=== PATIENT | female | born 1945 | race Caucasian/White ===

== ENCOUNTER 2018-12-03 20:53 | Emergency (ER) | payer OTHER, MEDICARE ==
[~2018-12-03] VITALS: Ht 154.9 cm; Wt 72.6 kg
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
[2018-12-03] MEDS ORDERED: TETANUS,DIPTH,PERTUSS P/F (BOOSTRIX) 0.5 ML VIAL IM ONE (22:15)
[2018-12-03] MEDS ORDERED: NAPR-1071 PO (22:21)
[2018-12-03 22:35] VITALS: BP 140/64
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
== END 2018-12-03 22:34 | disposition home or self-care (01) ==
LOC: EDUNIT# 20:53 → ER FS 20:55
DX: S80.11XA Contusion of right lower leg, initial encounter (principal); S00.83XA Contusion of other part of head, initial encounter; S60.012A Contusion of left thumb without damage to nail, initial encounter; S00.212A Abrasion of left eyelid and periocular area, initial encounter; R40.2142 Coma scale, eyes open, spontaneous, at arrival to emergency department; R40.2252 Coma scale, best verbal response, oriented, at arrival to emergency department; R40.2362 Coma scale, best motor response, obeys commands, at arrival to emergency department; Z88.0 Allergy status to penicillin; Z88.8 Allergy status to other drugs, medicaments and biological substances; V49.40XA Driver injured in collision with unspecified motor vehicles in traffic accident, initial encounter
CPT/HCPCS: 73562; 73590; 90715

== ENCOUNTER → 2019-03-18 | Outpatient (CLI) | payer MEDICARE ==
[~2019-03-18] MED LIST: NAPR-1071 PO
[2019-03-18 12:11] LABS: ALANINE AMINOTRANSFERASE 21 U/L (0-55); ALBUMIN 4.6 GM/DL (3.2-4.5); ALKALINE PHOSPHATASE 90 U/L (40-136); BILIRUBIN,TOTAL 0.3 MG/DL (0.1-1.0); BUN/CREATININE RATIO 20; CALCIUM 9.7 MG/DL (8.5-10.1); CARBON DIOXIDE 31 MMOL/L (21-32); CHLORIDE 105 MMOL/L (98-107); CREATININE SERUM 0.79 MG/DL (0.60-1.30); GFR ESTIMATED > 60; GLUCOSE 112 MG/DL (70-105); POTASSIUM 3.7 MMOL/L (3.6-5.0); SODIUM 144 MMOL/L (135-145); TOTAL PROTEIN 7.2 GM/DL (6.4-8.2)
[2019-03-18 12:31] LABS: FREE T4 (FREE THYROXINE) 0.77 NG/DL (0.70-1.48)
== END ==
LOC: LAB 11:33
PROVIDERS: ATTEND Pediatrics
DX: R41.3 Other amnesia (principal)
CPT/HCPCS: 36415; 80053; 82607; 84439; 84443

== ENCOUNTER 2019-10-06 10:23 | Emergency (ER) | payer MEDICARE ==
[~2019-10-06] VITALS: Ht 152.4 cm; Wt 61.3 kg
[2019-10-06 10:33] VITALS: BP 155/72
--- NOTE | 2019-10-06 10:39 | ED Lower Extremity ---
General Chief Complaint: Lower Extremity Stated Complaint: RT SWOLLEN KNEE Source: patient Exam Limitations: no limitations History of Present Illness Date Seen by Provider: Oct 06, 2019 Time Seen by Provider: 10:35 Initial Comments 74-year-old female presents with pain and swelling to the right lower leg. Patient reports about 30 minutes ago she was working outside pulling weeds when she stepped backwards fell. She has pain in the distal aspect of her right lower leg with some swelling. She is able to bear weight but with significant amount of pain. She is able to move her ankle. She denies any other injury. She does have some mild bruising to the area. Allergies and Home Medications Allergies Coded Allergies: Penicillins (Verified Allergy, Intermediate, rash, 12/03/18) oseltamivir (Verified Allergy, Intermediate, Vomiting, 12/03/18) Home Medications Naproxen 500 Mg Tablet, 500 MG PO BID PRN for PAIN-MODERATE TO SEVERE Prescribed by: ALEJANDRO REHMAN on 12/03/181 Patient Home Medication List Home Medication List Reviewed: Yes Review of Systems Constitutional: No chills, No fever EENTM: no symptoms reported Respiratory: no symptoms reported Cardiovascular: no symptoms reported Gastrointestinal: no symptoms reported Genitourinary: no symptoms reported Musculoskeletal: see HPI Skin: see HPI Past Zocnnvg-Dzahcg-Lnwuig Hx Past Med/Social Hx: Reviewed Nursing Past Med/Soc Hx Patient Social History 2nd Hand Smoke Exposure: No Recent Foreign Travel: No Contact w/Someone Who Travel: No Recent Hopitalizations: No Past Medical History Surgeries: Yes Orthopedic Respiratory: No Cardiac: No Neurological: Yes Seizure Disorder Genitourinary: No Gastrointestinal: No Musculoskeletal: No Endocrine: No HEENT: No Cancer: No Psychosocial: No Integumentary: No Blood Disorders: No Physical Exam Vital Signs Vital Signs - First Documented 10/06/19 10:33 Temp 36.5 Pulse 84 Resp 16 B/P (MAP) 155/72 (99) Pulse Ox 98 O2 Delivery Room Air Capillary Refill : Height, Weight, BMI Height: 5'1.00" Weight: 160lbs. oz. [id number]; 27.85 BMI Method:Stated General Appearance: WD/WN, no apparent distress Neck: supple Cardiovascular: normal peripheral pulses, regular rate, rhythm Respiratory: lungs clear, normal breath sounds Gastrointestinal: non tender, soft Hips: bilateral hip non-tender Legs: right leg ecchymosis, right leg soft tissue tenderness, right leg swelling Knees: bilateral knee non-tender Ankles: bilateral ankle normal range of motion Feet: bilateral foot non-tender Neurologic/Tendon: normal sensation Neurologic/Psychiatric: alert, normal mood/affect, oriented x 3 Skin: ecchymosis Progress/Results/Core Measures Results/Orders My Orders Orders - ZACKERY GREENWOOD DO Tibia Fibula 2 View Right (10/06/19 10:39) Vital Signs/I&O 10/06/19 10:33 Temp 36.5 Pulse 84 Resp 16 B/P (MAP) 155/72 (99) Pulse Ox 98 O2 Delivery Room Air Diagnostic Imaging Diagonstic Imaging: Xray Plain Films/CT/US/NM/MRI: leg Comments [facility], [place] NAME: RUFINO BILLY [employer] REC#: [id number] PT STATUS: REG ER : 1945 PHYSICIAN: ZACKERY GREENWOOD DO ADMIT DATE: 10/06/19/ER FS Draft Date of Exam:10/06/19 TIBIA FIBULA 2 VIEW RIGHT INDICATION: Pain in the right lower extremity, fall. Time of exam: 10:46 AM Two views of the right tibia and fibula were obtained. There are changes of right total knee arthroplasty. Prosthetic elements are in good position. Alignment at the knee and ankle appears normal. The tibia and fibula appear to be intact. No fractures are identified. Soft tissues are unremarkable. IMPRESSION: No acute bony abnormality is detected. Dictated on workstation # [id number] Dict: 10/06/19 1051 Trans: 10/06/19 1056 [facility] [id number] Interpreted by: TRACI HALL MD Reviewed: Reviewed by Me, Reviewed/Discussed Departure Impression Primary Impression: Contusion of right lower leg, initial encounter Disposition: 01 HOME, SELF-CARE Condition: Stable Departure-Patient Inst. Referrals: RAMIN KWOK MD (PCP/Family) Primary Care Physician Patient Instructions: Contusion (DC), Taking Care of Bruises Add. Discharge Instructions: 4% topical lidocaine with menthol cream or gel to affected area as directed on package discharge instructions reviewed with patient and/or family. Voiced understanding. ZACKERY GREENWOOD DO Oct 06, 2019 10:39
--- NOTE | 2019-10-06 10:56 | Diagnostic Imaging Report ---
INDICATION: Pain in the right lower extremity, fall. Time of exam: 10:46 AM Two views of the right tibia and fibula were obtained. There are changes of right total knee arthroplasty. Prosthetic elements are in good position. Alignment at the knee and ankle appears normal. The tibia and fibula appear to be intact. No fractures are identified. Soft tissues are unremarkable. IMPRESSION: No acute bony abnormality is detected. Dictated by: Dictated on workstation # [id number]
== END 2019-10-06 11:12 | disposition home or self-care (01) ==
LOC: EDUNIT# 10:23 → ER FS 10:25
DX: S80.11XA Contusion of right lower leg, initial encounter (principal); Z88.0 Allergy status to penicillin; Z88.3 Allergy status to other anti-infective agents; W18.39XA Other fall on same level, initial encounter
CPT/HCPCS: 73590

== ENCOUNTER 2020-05-18 08:49 | Emergency (ER) | payer MEDICARE ==
[~2020-05-18] VITALS: Ht 152.4 cm; Wt 56.0 kg
--- NOTE | 2020-05-18 09:26 | ED General ---
General Chief Complaint: Altered Mental Status Stated Complaint: DIZZINESS,DISORIENTATION Source of Information: Patient History of Present Illness Date Seen by Provider: May 18, 2020 Time Seen by Provider: 08:52 Initial Comments 75-year-old female presenting with her sister to the emergency department having complaints of intermittent dizziness and confusion. Last known normal is unsure. Patient has a history of seizures but cannot remember when she last had a seizure. She takes phenytoin for her seizures. She also has a history of hypothyroid and high cholesterol. She follows with Dr. Kwok out of [place]. She denies having any pain. She states that she has no headache, change in her vision, nausea, vomiting, pain with urination, change in her bowels, cough or shortness of breath. She has had no fever or chills. She is oriented to her self and location but is unsure of date and age. Allergies and Home Medications Allergies Coded Allergies: Penicillins (Verified Allergy, Intermediate, rash, 12/03/18) oseltamivir (Verified Allergy, Intermediate, Vomiting, 12/03/18) Home Medications Naproxen 500 Mg Tablet, 500 MG PO BID PRN for PAIN-MODERATE TO SEVERE Prescribed by: ALEJANDRO REHMAN on 12/03/18 2221 Patient Home Medication List Home Medication List Reviewed: Yes Review of Systems Review of Systems Constitutional: No chills; dizziness (intermittent); No fever EENTM: no symptoms reported Respiratory: no symptoms reported Cardiovascular: no symptoms reported Gastrointestinal: no symptoms reported Genitourinary: no symptoms reported Musculoskeletal: no symptoms reported Skin: no symptoms reported Psychiatric/Neurological: Denies Headache; Other (confusion) Hematologic/Lymphatic: No Symptoms Reported Past [id number]-[id number] Hx Past Med/Social Hx: Reviewed Nursing Past Med/Soc Hx Patient Social History 2nd Hand Smoke Exposure: No Recent Hopitalizations: No Seasonal Allergies Seasonal Allergies: No Past Medical History Surgeries: Yes Orthopedic Respiratory: No Cardiac: No Neurological: Yes Seizure Disorder Genitourinary: No Gastrointestinal: No Musculoskeletal: No Endocrine: No HEENT: No Cancer: No Psychosocial: No Integumentary: No Blood Disorders: No Physical Exam Vital Signs Vital Signs - First Documented 05/18/20 08:55 Temp 36.8 Pulse 92 Resp 16 B/P (MAP) 155/69 (97) Pulse Ox 99 O2 Delivery Room Air Capillary Refill : Height, Weight, BMI Height: 5'1.00" Weight: 160lbs. oz. 72.196616my; 26.00 BMI Method:Stated General Appearance: No Apparent Distress, WD/WN HEENT: PERRL/EOMI, Normal ENT Inspection, Pharynx Normal Neck: Full Range of Motion, Normal Inspection, Non Tender, Supple; No Carotid Bruit Respiratory: Chest Non Tender, Lungs Clear, Normal Breath Sounds, No Accessory Muscle Use, No Respiratory Distress Cardiovascular: Regular Rate, Rhythm, No Murmur, Normal Peripheral Pulses Gastrointestinal: Normal Bowel Sounds, No Pulsatile Mass, Non Tender, Soft Rectal: Deferred Extremity: Normal Capillary Refill, Normal Range of Motion, Non Tender, No Calf Tenderness, No Pedal Edema Neurologic/Psychiatric: Alert; No Oriented x3 (oriented to self and place. not oriented to age, month, year, day); No Motor/Sensory Deficits, Normal Mood/Affect, fund manager II-XII Norm as Tested; No Aphasia, No Facial Droop, No Motor Weakness, No Sensory Deficit Skin: Normal Color, Warm/Dry Progress/Results/Core Measures Suspected Sepsis SIRS Temperature: Pulse: Respiratory Rate: Laboratory Tests 05/18/20 09:25: White Blood Count 5.1 Blood Pressure / Mean: Laboratory Tests 05/18/20 09:25: Creatinine 0.64, Platelet Count 211, Total Bilirubin 0.3 Results/Orders Lab Results Laboratory Tests Test 05/18/20 09:20 05/18/20 09:25 Range/Units Urine Color YELLOW Urine Clarity CLEAR Urine pH 6.5 5-9 Urine Specific Addison 1.010 L 1.016-1.022 Urine Protein NEGATIVE NEGATIVE Urine Glucose (UA) NEGATIVE NEGATIVE Urine Ketones NEGATIVE NEGATIVE Urine Nitrite NEGATIVE NEGATIVE Urine Bilirubin NEGATIVE NEGATIVE Urine Urobilinogen 0.2 < = 1.0 MG/DL Urine Leukocyte Esterase NEGATIVE NEGATIVE Urine RBC (Auto) 2+ H NEGATIVE Urine RBC 5-10 H /HPF Urine WBC NONE /HPF Urine Squamous Epithelial Cells RARE /HPF Urine Crystals NONE /LPF Urine Bacteria NEGATIVE /HPF Urine Casts NONE /LPF Urine Mucus NEGATIVE /LPF Urine Culture Indicated NO Urine Opiates Screen NEGATIVE NEGATIVE Urine Oxycodone Screen NEGATIVE NEGATIVE Urine Methadone Screen NEGATIVE NEGATIVE Urine Propoxyphene Screen NEGATIVE NEGATIVE Urine Barbiturates Screen POSITIVE H NEGATIVE Ur Tricyclic Antidepressants Screen NEGATIVE NEGATIVE Urine Phencyclidine Screen NEGATIVE NEGATIVE Urine Amphetamines Screen NEGATIVE NEGATIVE Urine Methamphetamines Screen NEGATIVE NEGATIVE Urine Benzodiazepines Screen NEGATIVE NEGATIVE Urine Cocaine Screen NEGATIVE NEGATIVE Urine Cannabinoids Screen NEGATIVE NEGATIVE White Blood Count 5.1 4.3-11.0 10^3/uL Red Blood Count 4.46 4.35-5.85 10^6/uL Hemoglobin 13.7 11.5-16.0 G/DL Hematocrit 41 35-52 % Mean Corpuscular Volume 93 80-99 FL Mean Corpuscular Hemoglobin 31 25-34 PG Mean Corpuscular Hemoglobin Concent 33 32-36 G/DL Red Cell Distribution Width 12.8 10.0-14.5 % Platelet Count 211 130-400 10^3/uL Mean Platelet Volume 9.3 7.4-10.4 FL Immature Granulocyte % (Auto) 0 % Neutrophils (%) (Auto) 66 42-75 % Lymphocytes (%) (Auto) 25 12-44 % Monocytes (%) (Auto) 8 0-12 % Eosinophils (%) (Auto) 0 0-10 % Basophils (%) (Auto) 0 0-10 % Neutrophils # (Auto) 3.4 1.8-7.8 X 10^3 Lymphocytes # (Auto) 1.3 1.0-4.0 X 10^3 Monocytes # (Auto) 0.4 0.0-1.0 X 10^3 Eosinophils # (Auto) 0.0 0.0-0.3 10^3/uL Basophils # (Auto) 0.0 0.0-0.1 10^3/uL Immature Granulocyte # (Auto) 0.0 0.0-0.1 10^3/uL Sodium Level 141 135-145 MMOL/L Potassium Level 3.7 3.6-5.0 MMOL/L Chloride Level 102 98-107 MMOL/L Carbon Dioxide Level 31 21-32 MMOL/L Anion Gap 8 5-14 MMOL/L Blood Urea Nitrogen 17 7-18 MG/DL Creatinine 0.64 0.60-1.30 MG/DL Estimat Glomerular Filtration Rate > 60 BUN/Creatinine Ratio 27 Glucose Level 154 H 70-105 MG/DL Calcium Level 9.7 8.5-10.1 MG/DL Corrected Calcium 8.5-10.1 MG/DL Total Bilirubin 0.3 0.1-1.0 MG/DL Aspartate Amino Transf (AST/SGOT) 21 5-34 U/L Alanine Aminotransferase (ALT/SGPT) 18 0-55 U/L Alkaline Phosphatase 102 40-136 U/L Troponin I < 0.30 <0.30 NG/ML Total Protein 7.2 6.4-8.2 GM/DL Albumin 4.7 H 3.2-4.5 GM/DL Salicylates Level < 0.3 L 5.0-20.0 MG/DL Acetaminophen Level < 10 L 10-30 UG/ML Serum Alcohol < 10 <10 MG/DL My Orders Orders - ALEJANDRO REHMAN MD Ua Culture If Indicated (05/18/20 09:16) Cbc With Automated Diff (05/18/20 09:16) Comprehensive Metabolic Panel (05/18/20 09:16) Alcohol (05/18/20 09:16) Drug Screen Stat (Urine) (05/18/20 09:16) Acetaminophen (05/18/20 09:16) Salicylate (05/18/20 09:16) Ekg Tracing (05/18/20 09:16) Ed Iv/Invasive Line Start (05/18/20 09:16) Monitor-Rhythm Ecg Trace Only (05/18/20 09:16) Thyroid Stimulating Hormone (05/18/20 09:16) Troponin I Fs (05/18/20 09:16) Ct Head Wo (05/18/20 09:16) Vital Signs/I&O 05/18/20 08:55 Temp 36.8 Pulse 92 Resp 16 B/P (MAP) 155/69 (97) Pulse Ox 99 O2 Delivery Room Air Capillary Refill : Progress Note #1: Progress Note obtain basic labs, ECG, Cardiac enzymes, UA to check for UTI, CT head to evaluate for stroke, mass, acute intracranial process. Differential diagnosis would include post-ictal from seizure activity, stroke, UTI, Infection, CAD with DC, dementia Progress Note #2: Time: 10:[address] head no acute process, ECG without acute ischemia, UA clear of infection. drug screen shows barbituates but no other drugs of abuse. Chemistry pending otherwise. Progress Note #3: Time: 11:26 Progress Note Chemistry stable and Alcohol, Acetaminophen and salicylate levels all negative. TSH pending but it is sent to [facility] to run and is not an emergent test. Discussed with Dr. Kwok since he is the PCP for the patient. He is very familiar with the patient and he reports seeing her last week and she had labs showing her TSH was ok and did not need adjustment. He had seen improvement in her symptoms and memory when she was taking vitamin B12 shots. She had a very low level of vitamin B12 and when he had started the injections for her she seemed to be improving. However she has not been taking those of late. He stated that he appreciated the call and update on the patient. He was very familiar with her being confused and having memory issues and recommended having her follow-up to get the B12 shots started again. Any additional treatments could be done after follow-up with him. As he already is familiar with her and knows her history very well he would be one of the best resources for the patient and family. Advised patient to not be driving herself due to her memory issues. Reviewed B12 concerns with the patient. ECG Initial ECG Impression Date: May 18, 2020 Initial ECG Impression Time: 10:03 Initial ECG Rate: 73 Initial ECG Rhythm: Normal Sinus Initial ECG Comparisson: No Previous ECG Available Comment Normal sinus rhythm with a heart rate of 73 bpm. MN interval 147 ms. QT interval 386 ms with a QTc interval [address] elevation. No prior tracing available for comparison. Diagnostic Imaging Diagonstic Imaging: CT Plain Films/CT/US/NM/MRI: head Comments [facility], [place] NAME: RUFINO BILLY [facility] REC#: [id number] PT STATUS: REG ER : 1945 PHYSICIAN: ALEJANDRO REHMAN MD ADMIT DATE: 05/18/20/ER FS Signed Date of Exam:05/18/20 CT HEAD WO PROCEDURE: CT head without contrast. TECHNIQUE: Multiple contiguous axial images were obtained through the brain without the use of intravenous contrast. Auto Exposure Controls were utilized during the CT exam to meet ALARA standards for radiation dose reduction. INDICATION: Confusion and dizziness. FINDINGS: There is prominence of the ventricles and sulci. There is no hydrocephalus or cerebral edema. There is no midline shift or mass-effect. There is no intracranial mass, hemorrhage, or extra-axial fluid collection. There is some diffuse decreased attenuation of the periventricular white matter which is nonspecific. The visualized paranasal sinuses and mastoid air cells are clear. There are no regional areas of decreased attenuation appreciated to suggest an acute CVA. IMPRESSION: 1. No acute intracranial process. 2. Age-appropriate atrophy. 3. Decreased attenuation of the periventricular white matter which is nonspecific, however, likely reflects senescent change and/or chronic small vessel ischemic disease. If there is high clinical concern of an acute CVA further evaluation with MRI should be considered. Dictated by: Dictated on workstation # [id number] Dict: 05/18/20939 Trans: 05/18/20943 [facility] [id number] Interpreted by: BRUNO CASTELAN MD Electronically signed by: BRUNO CASTELAN MD 05/18/20943 Departure Impression Primary Impression: Dementia Qualified Codes: F03.90 - Unspecified dementia without behavioral disturbance Additional Impression: Confusion and disorientation Disposition: 01 HOME, SELF-CARE Condition: Stable Departure-Patient Inst. Decision time for Depature: 11:29 Referrals: RAMIN KWOK MD (PCP/Family) Primary Care Physician Patient Instructions: Dementia (Including Alzheimer Disease), Dementia (DC), Driving Restrictions Add. Discharge Instructions: At this point you should not be driving yourself due to concerns for your memory and dementia. Follow up with Dr. Kwok regarding your memory and issues. He had seen improvement with your memory and symptoms when you were getting Vitamin B12 shots and he encourages you to see him and get those restarted. All discharge instructions reviewed with patient and/or family. Voiced understanding. ALEJANDRO REHMAN MD May 18, 2020 09:26
--- NOTE | 2020-05-18 09:42 | Diagnostic Imaging Report ---
PROCEDURE: CT head without contrast. TECHNIQUE: Multiple contiguous axial images were obtained through the brain without the use of intravenous contrast. Auto Exposure Controls were utilized during the CT exam to meet ALARA standards for radiation dose reduction. INDICATION: Confusion and dizziness. FINDINGS: There is prominence of the ventricles and sulci. There is no hydrocephalus or cerebral edema. There is no midline shift or mass-effect. There is no intracranial mass, hemorrhage, or extra-axial fluid collection. There is some diffuse decreased attenuation of the periventricular white matter which is nonspecific. The visualized paranasal sinuses and mastoid air cells are clear. There are no regional areas of decreased attenuation appreciated to suggest an acute CVA. IMPRESSION: 1. No acute intracranial process. 2. Age-appropriate atrophy. 3. Decreased attenuation of the periventricular white matter which is nonspecific, however, likely reflects senescent change and/or chronic small vessel ischemic disease. If there is high clinical concern of an acute CVA further evaluation with MRI should be considered. Dictated by: Dictated on workstation # [id number]
[2020-05-18 09:47] LABS: AMPHETAMINE SCREEN, URINE NEGATIVE (NEGATIVE); BARBITURATE SCREEN URINE POSITIVE (NEGATIVE); BENZODIAZEPINES SCREEN URINE NEGATIVE (NEGATIVE); CANNABINOID SCREEN, URINE NEGATIVE (NEGATIVE); CLARITY,URINE CLEAR; COCAINE SCREEN URINE NEGATIVE (NEGATIVE); COLOR,URINE YELLOW; GLUCOSE, URINE (UA) NEGATIVE (NEGATIVE); METHADONE STAT NEGATIVE (NEGATIVE); METHAMPHETAMINE SCREEN URINE S NEGATIVE (NEGATIVE); OPIATE SCREEN URINE NEGATIVE (NEGATIVE); OXYCODONE STAT NEGATIVE (NEGATIVE); PH,URINE 6.5 (5-9); PROPOXYPHENE STAT NEGATIVE (NEGATIVE); PROTEIN,URINE NEGATIVE (NEGATIVE); TRICYCLIC ANTIDEPRESSANTS SCRE NEGATIVE (NEGATIVE)
[2020-05-18 09:48] LABS: BACTERIA,URINE NEGATIVE /HPF; BILIRUBIN,URINE NEGATIVE (NEGATIVE); KETONES,URINE NEGATIVE (NEGATIVE); LEUKOCYTE ESTERASE ,URINE NEGATIVE (NEGATIVE); NITRITE,URINE NEGATIVE (NEGATIVE); SQUAMOUS EPITHELIAL CELL,UR RARE /HPF
[2020-05-18 09:49] LABS: HEMATOCRIT 41 % (35-52); HEMOGLOBIN 13.7 G/DL (11.5-16.0); MEAN CORPUSCULAR HEMOGLOBIN 31 PG (25-34); MEAN CORPUSCULAR VOLUME 93 FL (80-99); WHITE BLOOD COUNT 5.1 10^3/uL (4.3-11.0)
[2020-05-18 09:50] LABS: BASOPHILS % (AUTO) 0 % (0-10); EOSINOPHILS % (AUTO) 0 % (0-10); LYMPHOCYTES # (AUTO) 1.3 X 10^3 (1.0-4.0); LYMPHOCYTES % (AUTO) 25 % (12-44); MEAN CORPUSCULAR HGB CONC 33 G/DL (32-36); MEAN PLATELET VOLUME 9.3 FL (7.4-10.4); MONOCYTES # (AUTO) 0.4 X 10^3 (0.0-1.0); MONOCYTES % (AUTO) 8 % (0-12); NEUTROPHILS # (AUTO) 3.4 X 10^3 (1.8-7.8); NEUTROPHILS % (AUTO) 66 % (42-75); PLATELET COUNT 211 10^3/uL (130-400)
[2020-05-18 10:13] LABS: ALKALINE PHOSPHATASE 102 U/L (40-136); BILIRUBIN,TOTAL 0.3 MG/DL (0.1-1.0); BUN/CREATININE RATIO 27; CALCIUM 9.7 MG/DL (8.5-10.1); CARBON DIOXIDE 31 MMOL/L (21-32); CHLORIDE 102 MMOL/L (98-107); CREATININE SERUM 0.64 MG/DL (0.60-1.30); GFR ESTIMATED > 60; GLUCOSE 154 MG/DL (70-105); POTASSIUM 3.7 MMOL/L (3.6-5.0); SODIUM 141 MMOL/L (135-145)
[2020-05-18 10:14] LABS: ACETAMINOPHEN < 10 UG/ML (10-30); ALANINE AMINOTRANSFERASE 18 U/L (0-55); ALBUMIN 4.7 GM/DL (3.2-4.5); SALICYLATE < 0.3 MG/DL (5.0-20.0); TOTAL PROTEIN 7.2 GM/DL (6.4-8.2)
[2020-05-18 11:55] VITALS: BP 151/70
== END 2020-05-18 11:55 | disposition home or self-care (01) ==
LOC: EDUNIT# 08:49 → ER FS 08:51
DX: F03.90 Unspecified dementia, unspecified severity, without behavioral disturbance, psychotic disturbance, mood disturbance, and anxiety (principal); R41.0 Disorientation, unspecified; Z88.0 Allergy status to penicillin; Z88.8 Allergy status to other drugs, medicaments and biological substances
CPT/HCPCS: 36415; 70450; 80053; 80306; 81000; 84443; 84484; 85025; 93005; 99284; G0480 ×3; 80320; 80329

== ENCOUNTER 2020-05-21 07:27 | Emergency (ER) | payer MEDICARE ==
[~2020-05-21] VITALS: Ht 160 cm; Wt 53.9 kg
--- NOTE | 2020-05-21 10:46 | ED General ---
General Chief Complaint: Head/Cervical Problems Stated Complaint: FALL; HEAD INJ Nursing Triage Note: Patient reports she tripped over her cat this morning and fell against a doorframe, hitting the left side of her forehead. Large amount of bruising and swelling present to left forehead. Patient denies loss of consciousness, vision changes, dizziness, etc. Nursing Sepsis Screen: No Definite Risk Source of Information: Patient History of Present Illness Date Seen by Provider: May 21, 2020 Time Seen by Provider: 08:00 Initial Comments Patient is a 75-year-old female who presents with left forehead contusion after accidental fall from standing 1 hour prior to arrival. Patient states she tripped over the cat and struck her forehead off the wall and on the ground. Patient was unable to catch herself prior to falling. She denies loss of consciousness, feeling dizzy or dazed. She denies headache, nausea or neck pain. She is not currently on anticoagulation or antiplatelet therapy. Patient was able to walk denies extremity or hip pain. She is brought in by private vehicle. No other acute symptoms or complaints Timing/Duration: 1 Hour Severity: Mild Modifying Factors: improves with Cold Therapy, improves with Other (icepack) Associated Systoms: Denies Symptoms Allergies and Home Medications Allergies Coded Allergies: Penicillins (Verified Allergy, Intermediate, rash, 12/03/18) oseltamivir (Verified Allergy, Intermediate, Vomiting, 12/03/18) Home Medications Naproxen 500 Mg Tablet, 500 MG PO BID PRN for PAIN-MODERATE TO SEVERE Prescribed by: ALEJANDRO REHMAN on 12/03/18 2221 Patient Home Medication List Home Medication List Reviewed: Yes Review of Systems Review of Systems Constitutional: see HPI EENTM: see HPI Respiratory: see HPI Cardiovascular: see HPI Gastrointestinal: see HPI Genitourinary: see HPI Musculoskeletal: see HPI Skin: see HPI Psychiatric/Neurological: See HPI Hematologic/Lymphatic: See HPI Immunological/Allergic: see HPI All Other Systems Reviewed Negative Unless Noted: Yes Past [id number] Hx Past Med/Social Hx: Reviewed Nursing Past Med/Soc Hx Patient Social History Alcohol Use: Denies Use Smoking Status: Never a Smoker 2nd Hand Smoke Exposure: No Recent Infectious Disease Expo: No Recent Hopitalizations: No Seasonal Allergies Seasonal Allergies: No Past Medical History Surgeries: Yes Orthopedic Respiratory: No Cardiac: Yes High Cholesterol Neurological: Yes Seizure Disorder Genitourinary: No Gastrointestinal: No Musculoskeletal: No Endocrine: No HEENT: No Cancer: No Psychosocial: No Integumentary: No Blood Disorders: No Physical Exam Vital Signs Vital Signs - First Documented 05/21/20 07:43 Temp 36.2 Pulse 84 Resp 18 B/P (MAP) 149/62 (91) Pulse Ox 97 O2 Delivery Room Air Capillary Refill : Less Than 3 Seconds Height, Weight, BMI Height: 5'1.00" Weight: 160lbs. oz. 72.753314xv; 21.00 BMI Method:Stated General Appearance: No Apparent Distress Eyes: Bilateral Eye Normal Inspection, Bilateral Eye PERRL, Bilateral Eye EOMI HEENT: PERRL/EOMI, Pharynx Normal, Moist Mucous Membranes, Other (Left forehead contusion without abrasion or laceration) Neck: Full Range of Motion, Non Tender, Supple Respiratory: Lungs Clear Cardiovascular: Regular Rate, Rhythm Gastrointestinal: Non Tender, Soft Neurologic/Psychiatric: Alert, Oriented x3, Normal Mood/Affect, fibrous wallboard inspector II-XII Norm as Tested, Abnormal fibrous wallboard inspector II-XII Skin: Normal Color Focused Exam Sepsis Stage: Ruled Out Progress/Results/Core Measures Suspected Sepsis Recent Fever Within 48 Hours: No Infection Criteria Present: None New/Unexplained Altered Menta: No Sepsis Screen: No Definite Risk SIRS Temperature: Pulse: 84 Respiratory Rate: 18 Blood Pressure 149 /62 Mean: 91 Results/Orders My Orders Orders - EMILY LEBLANC DO Ct Head/Cervical Spine Wo (05/21/20 07:47) Vital Signs/I&O 05/21/20 07:43 Temp 36.2 Pulse 84 Resp 18 B/P (MAP) 149/62 (91) Pulse Ox 97 O2 Delivery Room Air Capillary Refill : Less Than 3 Seconds Blood Pressure Mean: 91 Departure Communication (Admissions) Patient monitored in the emergency department with no change in mental status. CT head and cervical spine ordered but unavailable due to technical problems performed with CT scanner. Patient will be transferred to [facility] emergency department by private vehicle with the patient will obtain a CT scan. Anticipate discharge from facility if CT scan is negative with typical closed head injury instructions. Case reviewed and discussed with ED attending prior to transfer Impression Primary Impression: Injury of head and neck Disposition: XFER SHT-TRM HOSP Condition: Stable Departure-Patient Inst. Decision time for Depature: 10:48 Referrals: RAMIN KWOK MD (PCP/Family) Primary Care Physician EMILY LEBLANC DO May 21, 2020 10:46
--- NOTE | 2020-05-21 11:38 | NUR ---
Patient departed ED at this time with sister en route to [place] ED by private vehicle for CT scan.
--- NOTE | 2020-05-21 12:30 | NUR ---
PT ARRIVED PER PVT VEHICLE FOR CT HEAD
--- NOTE | 2020-05-21 13:09 | Diagnostic Imaging Report ---
PROCEDURE: CT head without contrast. TECHNIQUE: Multiple contiguous axial images were obtained through the brain without the use of intravenous contrast. Auto Exposure Controls were utilized during the CT exam to meet ALARA standards for radiation dose reduction. INDICATION: Head injury. Comparison made with prior examination of 05/18/2020. FINDINGS: There is prominence of ventricles and sulci. Mild chronic microvascular ischemic disease. No hydrocephalus. No midline shift. No mass, hemorrhage or extra-axial fluid collection. There is a left frontal scalp hematoma. Calvarium is intact. Sinuses and mastoid air cells are clear. IMPRESSION: Atrophy and chronic microvascular ischemic disease however no acute intracranial abnormality Left frontal scalp hematoma. Dictated by: Dictated on workstation # [id number]
[2020-05-21 13:20] VITALS: BP 152/77
== END 2020-05-21 13:25 | disposition home or self-care (01) ==
LOC: EDUNIT# 07:27 → ER FS 07:31 → ER 13:25
DX: S00.83XA Contusion of other part of head, initial encounter (principal); S19.9XXA Unspecified injury of neck, initial encounter; Z88.0 Allergy status to penicillin; Z88.8 Allergy status to other drugs, medicaments and biological substances; W01.198A Fall on same level from slipping, tripping and stumbling with subsequent striking against other object, initial encounter
CPT/HCPCS: 70450

== ENCOUNTER 2020-08-06 20:52 | Emergency (ER) | payer MEDICARE ==
--- NOTE | 2020-08-06 22:29 | ED Integumentary General ---
General Chief Complaint: Skin/Wound Problems Stated Complaint: INSECT BITE Nursing Triage Note: Pt complaining of a spider bite on her right upper arm Source: patient History of Present Illness Date Seen by Provider: Aug 06, 2020 Time Seen by Provider: 21:48 Initial Comments 75 yo female presenting with rash and itching to her stomach and arms. She was working with clearing a scrub off of her property earlier today. She started noticing a lot of itching and was scratching on her stomach and arms. It was not improving this evening so she had gone to see her sister who told her she thought there might be a spider bite. She has no pain with any of the bites but they are itchy. She has not taken anything for itching. She denies any fever or chills there is been no drainage from any of the areas. There is one spot on her right posterior shoulder where it looks like she scratched and now has a scab. Allergies and Home Medications Allergies Coded Allergies: Penicillins (Verified Allergy, Intermediate, rash, 12/03/18) oseltamivir (Verified Allergy, Intermediate, Vomiting, 12/03/18) Home Medications Naproxen 500 Mg Tablet, 500 MG PO BID PRN for PAIN-MODERATE TO SEVERE Prescribed by: ALEJANDRO REHMAN on 12/03/182220 Prednisone 20 Mg Tab, 40 MG PO DAILY Prescribed by: ALEJANDRO REHMAN on 08/06/202231 Sulfamethoxazole/Trimethoprim 1 Each Tablet, 1 EACH PO BID Prescribed by: ALEJANDRO REHMAN on 08/06/202231 Patient Home Medication List Home Medication List Reviewed: Yes Review of Systems Review of Systems Constitutional: No chills, No dizziness, No fever, No malaise EENTM: no symptoms reported Respiratory: no symptoms reported Cardiovascular: no symptoms reported Gastrointestinal: no symptoms reported Genitourinary: no symptoms reported Musculoskeletal: no symptoms reported Skin: see HPI Psychiatric/Neurological: No Symptoms Reported Past Mkidmfb-Ubbspx-Uknjtq Hx Past Med/Social Hx: Reviewed Nursing Past Med/Soc Hx Patient Social History Alcohol Use: Denies Use Smoking Status: Never a Smoker 2nd Hand Smoke Exposure: No Recent Infectious Disease Expo: No Recent Hopitalizations: No Seasonal Allergies Seasonal Allergies: No Past Medical History Surgeries: Yes Orthopedic Respiratory: No Cardiac: Yes High Cholesterol Neurological: Yes Seizure Disorder Genitourinary: No Gastrointestinal: No Musculoskeletal: No Endocrine: No HEENT: No Cancer: No Psychosocial: No Integumentary: No Blood Disorders: No Physical Exam Vital Signs Vital Signs - First Documented 08/06/20 21:04 Temp 36.7 Pulse 68 Resp 16 B/P (MAP) 151/65 (93) Pulse Ox 99 O2 Delivery Room Air Capillary Refill : Less Than 3 Seconds General Appearance: WD/WN, no apparent distress Cardiovascular: normal peripheral pulses, regular rate, rhythm Respiratory: chest non-tender, lungs clear, normal breath sounds Skin: warm/dry, rash (multiple erythematous papules on torso, primarily on abdomen), other (one erythematous papule on right posterior shoulder with eschar and signs of her scratching at the lesion) Skin Problem Location: upper extremities, torso Skin Problem Character: erythema, papules Progress/Results/Core Measures Results/Orders My Orders Orders - ALEJANDRO REHMAN MD Prednisone Tablet (Deltasone Tablet) (08/06/20 22:32) Sulfamethoxazole/Trimet Ds Tab (Bactrim (08/06/20 22:32) Vital Signs/I&O 08/06/20 21:04 Temp 36.7 Pulse 68 Resp 16 B/P (MAP) 151/65 (93) Pulse Ox 99 O2 Delivery Room Air 2 Blood Pressure Mean: 93 Progress Progress Note : Progress Note The areas appear consistent with bug bites with localized histamine reaction. She has scratched some where they have excoriation and one on right posterior shoulder has a scab/eschar present. No drainage or fluctuance present. Will treat with steroid for a few days, Bactrim DS for 5 days to help prevent infection and then have her take Benadryl at home for itching. Check with clinic for continued concerns. Departure Impression Primary Impression: Bug bites Qualified Codes: W57.XXXA - Bitten or stung by nonvenomous insect and other nonvenomous arthropods, initial encounter Disposition: 01 HOME, SELF-CARE Condition: Stable Departure-Patient Inst. Decision time for Depature: 22:28 Referrals: RAMIN COSBY MD (PCP/Family) Primary Care Physician Patient Instructions: Insect Bites and Stings ED Add. Discharge Instructions: Take Benadryl (Diphenhydramine) 25 to 50 mg every 6 hours as needed for itching. The steroid will help with itching and redness. Take the short course of antibiotic to help prevent infection from where you have scratched at some of the bites. If not improving or having more problems then check back with Dr. Cosby or seek medical care for recheck All discharge instructions reviewed with patient and/or family. Voiced understanding. Scripts Sulfamethoxazole/Trimethoprim (Bactrim Ds Tablet) 1 Each Tablet 1 EACH PO BID for 5 Days, #10 TAB 0 Refills Prov: ALEJANDRO REHMAN MD 08/06/20 Prednisone (Prednisone) 20 Mg Tab 40 MG PO DAILY for Itching for 3 Days, #6 TAB 0 Refills Prov: ALEJANDRO REHMAN MD 08/06/20 Images Full Body/Extremities Full 1 - Lesion (s) (8 mm erythematous papule with excoriation and eschar. no drainage or fluctuance) 2 - Rash (multiple diffuse erythematous papules across abdomen and on extremities. No fluctuance, draiange. Excoriation present from scratching) ALEJANDRO REHMAN MD Aug 06, 2020 22:29
[2020-08-06] MEDS ORDERED: PRD20T PO (22:32)
[2020-08-06] MEDS ORDERED: TRIM/SULFAMETH 160/800 (SEPTRA DS) TAB PO STA (22:32)
[2020-08-06] MEDS ORDERED: predniSONE 20 MG TAB PO STA (22:32)
[2020-08-06] MEDS ORDERED: SULF1TAB35 PO (22:32)
[2020-08-06 22:35] VITALS: BP 151/65
[2020-08-06] MEDS ORDERED: diphenhydrAMINE 25 MG TAB (BENADRYL) PO ONE (22:38)
[2020-08-06] MEDS ORDERED: diphenhydrAMINE 25 MG TAB (BENADRYL) PO STA (22:42)
== END 2020-08-06 22:39 | disposition home or self-care (01) ==
LOC: EDUNIT# 20:52 → ER FS 20:55
DX: S40.861A Insect bite (nonvenomous) of right upper arm, initial encounter (principal); Z88.0 Allergy status to penicillin; Z88.8 Allergy status to other drugs, medicaments and biological substances; Z79.52 Long term (current) use of systemic steroids; W57.XXXA Bitten or stung by nonvenomous insect and other nonvenomous arthropods, initial encounter
CPT/HCPCS: 99283

== ENCOUNTER 2020-09-21 07:27 | Emergency (ER) | payer MEDICARE ==
[~2020-09-21 07:27] MED LIST changes: +PRD20T PO; +SULF1TAB35 PO
[2020-09-21 07:32] VITALS: BP 96/72
--- NOTE | 2020-09-21 07:37 | ED Integumentary General ---
General Chief Complaint: Bite-Animal/Human/Insect Stated Complaint: INSECT BITE History of Present Illness Date Seen by Provider: September 21, 2020 Time Seen by Provider: 07:33 Initial Comments 75-year-old female presents with hands that are "stiff and full. Is been going on for what sounds like a little while. Patient has some significant memory issues and dementia. Patient reports that she used to see Dr. Cosby but that is been changed and she is not sure who she supposed have an appointment with now. Patient also has a small area of eczema/insect bite on her right cheek. Patient denies any fevers chills cough nausea vomiting. Patient seems frustrated that she is not sure who to go to for her primary care provider at this time patient with no acute complaints Allergies and Home Medications Allergies Coded Allergies: Penicillins (Verified Allergy, Intermediate, rash, 12/03/18) oseltamivir (Verified Allergy, Intermediate, Vomiting, 12/03/18) Home Medications Naproxen 500 Mg Tablet, 500 MG PO BID PRN for PAIN-MODERATE TO SEVERE Prescribed by: ALEJANDRO REHMAN on 12/03/182220 Prednisone 20 Mg Tab, 40 MG PO DAILY Prescribed by: ALEJANDRO REHMAN on 08/06/202231 Sulfamethoxazole/Trimethoprim 1 Each Tablet, 1 EACH PO BID Prescribed by: ALEJANDRO REHMAN on 08/06/202231 Patient Home Medication List Home Medication List Reviewed: Yes Review of Systems Review of Systems Constitutional: see HPI; No malaise, No weakness EENTM: no symptoms reported Respiratory: no symptoms reported Cardiovascular: no symptoms reported Gastrointestinal: no symptoms reported Genitourinary: no symptoms reported Musculoskeletal: see HPI Skin: see HPI Psychiatric/Neurological: No Symptoms Reported Past Vdywxzi-Pinfqf-Bsjqxb Hx Patient Social History Alcohol Use: Denies Use Smoking Status: Never a Smoker 2nd Hand Smoke Exposure: No Recent Hopitalizations: No Seasonal Allergies Seasonal Allergies: No Past Medical History Surgeries: Yes Orthopedic Respiratory: No Cardiac: Yes High Cholesterol Neurological: Yes Seizure Disorder Genitourinary: No Gastrointestinal: No Musculoskeletal: No Endocrine: No HEENT: No Cancer: No Psychosocial: No Integumentary: No Blood Disorders: No Physical Exam Vital Signs Capillary Refill : General Appearance: WD/WN, no apparent distress Neck: full range of motion, supple Cardiovascular: normal peripheral pulses, regular rate, rhythm Respiratory: lungs clear, normal breath sounds Gastrointestinal: non tender, soft Extremities: other (Bilateral hands show what appears to be significant arthritis possible RA) Neurologic/Psychiatric: alert Skin: other (Small area of eczema on her right cheek) Progress/Results/Core Measures Progress Progress Note : Progress Note Patient with what appears to be an arthritis flare. I will treat her with prednisone 20 mg for 3 days. Encouraged her to either return to see Dr. Cosby her to try to establish care with a new physician/provider. She is stable and discharged Departure Impression Primary Impression: Facial eczema Additional Impression: Arthritis of both hands Disposition: HOME, SELF-CARE Condition: Stable Departure-Patient Inst. Referrals: NO,LOCAL PHYSICIAN (PCP/Family) Primary Care Physician Patient Instructions: Eczema (Atopic Dermatitis), Psoriatic Arthritis in Children, Osteoarthritis (DC) Add. Discharge Instructions: Follow-up with your primary care provider in 2 to 3 days for recheck of today Topical hydrocortisone cream as directed on package to bite/eczema on face for 3 days All discharge instructions reviewed with patient and/or family. Voiced understanding. Scripts Prednisone (Prednisone) 20 Mg Tab 20 MG PO DAILY, #3 TAB 0 Refills Prov: ZACKERY GREENWOOD DO 09/21/20 ZACKERY GREENWOOD DO September 21, 2020 07:37
[2020-09-21] MEDS ORDERED: PRD20T PO (07:52)
[2020-09-22] MEDS ORDERED: NAPR-1071 PO (01:32)
== END 2020-09-21 07:57 | disposition home or self-care (01) ==
LOC: EDUNIT# 07:27 → ER FS 07:29
DX: L30.9 Dermatitis, unspecified (principal); M19.042 Primary osteoarthritis, left hand; M19.041 Primary osteoarthritis, right hand
CPT/HCPCS: 99281

== ENCOUNTER 2020-09-22 00:59 | Emergency (ER) | payer MEDICARE ==
[2020-09-22 01:10] VITALS: BP 141/66
--- NOTE | 2020-09-22 01:28 | ED General ---
General Chief Complaint: General Problems/Pain Stated Complaint: BILATERAL KNEE/HAND PAIN History of Present Illness Date Seen by Provider: September 22, 2020 Time Seen by Provider: 01:23 Initial Comments 75-year-old female presents with bilateral hand and knee pain. Patient was seen by me on the a.m. of 09/21/2020 for the same pain. At that time I discussed with patient that she has arthritis. She should try Tylenol and ibuprofen. She was given a prescription for prednisone and has taken 1 day. Patient has not taken any Tylenol or ibuprofen to help with the pain. Patient sister was is with her and states that she is scared to take it because she is on "seizure medication" patient does have an appointment on September 26 to establish care with [facility]. Allergies and Home Medications Allergies Coded Allergies: Penicillins (Verified Allergy, Intermediate, rash, 12/03/18) oseltamivir (Verified Allergy, Intermediate, Vomiting, 12/03/18) Home Medications Naproxen 500 Mg Tablet, 500 MG PO BID PRN for PAIN-MODERATE TO SEVERE Prescribed by: ALEJANDRO REHMAN on 12/03/182220 Naproxen 500 Mg Tablet, 500 MG PO BID Prescribed by: ZACKERY GREENWOOD on 09/22/20 0132 Prednisone 20 Mg Tab, 40 MG PO DAILY Prescribed by: ALEJANDRO REHMAN on 08/06/202231 Prednisone 20 Mg Tab, 20 MG PO DAILY Prescribed by: ZACKERY GREENWOOD on 09/21/20 0752 Sulfamethoxazole/Trimethoprim 1 Each Tablet, 1 EACH PO BID Prescribed by: ALEJANDRO REHMAN on 08/06/202231 Patient Home Medication List Home Medication List Reviewed: Yes Review of Systems Review of Systems Constitutional: no symptoms reported EENTM: no symptoms reported Respiratory: no symptoms reported Cardiovascular: no symptoms reported Gastrointestinal: no symptoms reported Genitourinary: no symptoms reported Musculoskeletal: see HPI Skin: no symptoms reported Psychiatric/Neurological: No Symptoms Reported Past Tnzeruo-Wmbalc-Ahrgmj Hx Past Med/Social Hx: Reviewed Nursing Past Med/Soc Hx Patient Social History 2nd Hand Smoke Exposure: No Recent Hopitalizations: No Seasonal Allergies Seasonal Allergies: No Past Medical History Surgeries: Yes Orthopedic Respiratory: No Cardiac: Yes High Cholesterol Neurological: Yes Seizure Disorder Genitourinary: No Gastrointestinal: No Musculoskeletal: No Endocrine: No HEENT: No Cancer: No Psychosocial: No Integumentary: No Blood Disorders: No Physical Exam Vital Signs Vital Signs - First Documented 09/22/20 01:10 Temp 36.3 Pulse 69 Resp 14 B/P (MAP) 141/66 (91) O2 Delivery Room Air Capillary Refill : Height, Weight, BMI Height: 5'1.00" Weight: 160lbs. oz. 72.594842by; 21.00 BMI Method:Stated General Appearance: No Apparent Distress, WD/WN Neck: Full Range of Motion Respiratory: No Accessory Muscle Use, No Respiratory Distress Cardiovascular: Regular Rate, Rhythm, No Edema Extremity: Normal Range of Motion Neurologic/Psychiatric: Alert, No Motor/Sensory Deficits Progress/Results/Core Measures Suspected Sepsis SIRS Temperature: Pulse: Respiratory Rate: Blood Pressure / Mean: Results/Orders My Orders Orders - ZACKERY GREENWOOD DO Ibuprofen Tablet (Motrin Tablet) (09/22/20 01:34) Vital Signs/I&O 09/22/20 01:10 Temp 36.3 Pulse 69 Resp 14 B/P (MAP) 141/66 (91) O2 Delivery Room Air Capillary Refill : Progress Note : Progress Note Patient has not tried any yypy-jwk-ufwlsap medications for pain control. Once again I discussed with her that she has arthritis. There is no noticeable hand swelling but she does have noticeable arthritis that likely is rheumatoid. Due to patient's concerns with medication and the medication she takes, I gave her ibuprofen here and then wrote her a prescription for Naprosyn 500 mg. She should continue the 3-day course of prednisone. I discussed with her that we will not get her pain is 0 but that we will make it more tolerable. But that at this time she has not tried anything for pain. She should keep her appointment for further evaluation with Dr. Hong on september 26 Departure Impression Primary Impression: Arthritis of both hands Disposition: HOME, SELF-CARE Condition: Stable Departure-Patient Inst. Referrals: NO,LOCAL PHYSICIAN (PCP/Family) Primary Care Physician Patient Instructions: Osteoarthritis (DC), Rheumatoid Arthritis (DC) Add. Discharge Instructions: Keep your appointment for next Friday with your primary care provider for long- term manage All discharge instructions reviewed with patient and/or family. Voiced understanding. Scripts Naproxen (Naprosyn) 500 Mg Tablet 500 MG PO BID, #30 TAB 0 Refills Prov: ZACKERY GREENWOOD DO 09/22/20 ZACKERY GREENWOOD DO September 22, 2020 01:28
[2020-09-22] MEDS ORDERED: NAPR-1071 PO (01:32)
[2020-09-22] MEDS ORDERED: IBUPROFEN 800 MG (MOTRIN) TAB PO STA (01:34)
== END 2020-09-22 01:48 | disposition home or self-care (01) ==
LOC: EDUNIT# 00:59 → ER FS 01:03
DX: M19.042 Primary osteoarthritis, left hand (principal); M19.041 Primary osteoarthritis, right hand; M25.561 Pain in right knee; M25.562 Pain in left knee; G40.909 Epilepsy, unspecified, not intractable, without status epilepticus; Z79.899 Other long term (current) drug therapy
CPT/HCPCS: 99283

== ENCOUNTER 2020-09-24 14:44 | Emergency (ER) | payer MEDICARE ==
[2020-09-24 14:50] VITALS: BP 134/65
--- NOTE | 2020-09-24 15:26 | ED Lower Extremity ---
General Chief Complaint: Lower Extremity Stated Complaint: LT KNEE PAIN Nursing Triage Note: Patient here today with sister who states patient has fallen several times recently. Is having left knee pain. Has small bruise on left knee. Has also been complaining of stiffness in her hands and joints and has been seen twice in the ED in the past 3 days. Has been taking a 3 day course of prednisone for symptoms and was then going to start taking naprosyn today since prednisone was completed yesterday. Nursing Sepsis Screen: No Definite Risk Source: patient History of Present Illness Date Seen by Provider: September 24, 2020 Time Seen by Provider: 15:00 Initial Comments Patient is a 75-year-old female with history of rheumatoid arthritis and dementia who lives by herself. She has been seen in the emergency department mul tiple times this past week for falls and various pain related complaints. Today, the patient presents with her daughter with a bruise to her left kneecap. She has previous knee replacements. She walks with a steady gait with her walker. She also complains of chronic right hip pain. She does not recall falling. Her daughter states that she has joint swelling and pain which is chronic which is contributing to her instability. The patient denies hitting her head, headache not of consciousness and neck pain. Patient has appointment follow-up appointment with her PCP in 2 days. No other reported symptoms or complaints. History is limited due to the patient's dementia. Onset: yesterday Pain/Injury Location: right hip; left leg Method of Injury: fell Modifying Factors: Improves With Other Allergies and Home Medications Allergies Coded Allergies: Penicillins (Verified Allergy, Intermediate, rash, 12/03/18) oseltamivir (Verified Allergy, Intermediate, Vomiting, 12/03/18) Home Medications Naproxen 500 Mg Tablet, 500 MG PO BID PRN for PAIN-MODERATE TO SEVERE Prescribed by: ALEJANDRO REHMAN on 12/03/182220 Naproxen 500 Mg Tablet, 500 MG PO BID Prescribed by: ZACKERY GREENWOOD on 09/22/20 0132 Prednisone 20 Mg Tab, 40 MG PO DAILY Prescribed by: ALEJANDRO REHMAN on 08/06/202231 Prednisone 20 Mg Tab, 20 MG PO DAILY Prescribed by: ZACKERY GREENWOOD on 09/21/20 0752 Sulfamethoxazole/Trimethoprim 1 Each Tablet, 1 EACH PO BID Prescribed by: ALEJANDRO REHMAN on 4/11/21 2232 Patient Home Medication List Home Medication List Reviewed: Yes Review of Systems Constitutional: see HPI EENTM: see HPI Respiratory: see HPI Cardiovascular: see HPI Genitourinary: see HPI Musculoskeletal: see HPI Skin: see HPI Psychiatric/Neurological: See HPI All Other Systems Reviewed Negative Unless Noted: Yes Past Vbtujbo-Rkcgho-Glgjgo Hx Past Med/Social Hx: Reviewed Nursing Past Med/Soc Hx Patient Social History Alcohol Use: Denies Use Smoking Status: Never a Smoker 2nd Hand Smoke Exposure: No Recent Infectious Disease Expo: No Recent Hopitalizations: No Seasonal Allergies Seasonal Allergies: No Past Medical History Surgeries: Yes Orthopedic Respiratory: No Cardiac: Yes High Cholesterol Neurological: Yes Seizure Disorder Genitourinary: No Gastrointestinal: No Musculoskeletal: No Endocrine: No HEENT: No Cancer: No Psychosocial: No Integumentary: No Blood Disorders: No Physical Exam Vital Signs Vital Signs - First Documented 09/24/20 14:50 Temp 37.0 Pulse 89 Resp 16 B/P (MAP) 134/65 (88) Pulse Ox 99 Capillary Refill : Less Than 3 Seconds Height, Weight, BMI Height: 5'1.00" Weight: 160lbs. oz. 72.793710wq; 21.00 BMI Method:Stated General Appearance: WD/WN HEENT: PERRL/EOMI, normal ENT inspection Neck: non-tender, full range of motion, supple Cardiovascular: normal peripheral pulses, regular rate, rhythm Respiratory: lungs clear Gastrointestinal: non tender Hips: left hip pain Knees: left knee pain, left knee soft tissue tenderness, left knee swelling Neurologic/Tendon: normal sensation, normal motor functions Neurologic/Psychiatric: no motor/sensory deficits, alert Skin: normal color Progress/Results/Core Measures Results/Orders My Orders Orders - EMILY LEBLANC DO Hip 2-3 View Right (09/24/20 15:02) Knee 3 View Left (09/24/20 15:02) Vital Signs/I&O 09/24/20 14:50 Temp 37.0 Pulse 89 Resp 16 B/P (MAP) 134/65 (88) Pulse Ox 99 Blood Pressure Mean: 88 Departure Communication (Admissions) Left knee x-ray:/Right hip: No acute fracture on preliminary ED review. Left knee contusion, minor and right hip pain related to osteoarthritis. No fractures identified. Recommend supportive care with PCP follow-up on Tuesdays to address home living situation and underlying chronic illness. Findings discussed with patient and family member prior to departure. Impression Primary Impression: Contusion of left knee Additional Impression: Arthritis of right hip Disposition: HOME, SELF-CARE Condition: Stable Departure-Patient Inst. Decision time for Depature: 15:25 Referrals: NO,LOCAL PHYSICIAN (PCP/Family) Primary Care Physician Patient Instructions: Osteoarthritis, Contusion (DC) Add. Discharge Instructions: Please continue Tylenol arthritis medication for treatment of left knee and right hip pain. No fractures were present on x-ray. Follow-up with your PCP for evaluation of underlying chronic medical conditions and evaluation of home safety. Return to the ED if new or concerning symptoms. All discharge instructions reviewed with patient and/or family. Voiced understanding. EMILY LEBLANC DO September 24, 2020 15:26
--- NOTE | 2020-09-24 15:35 | Diagnostic Imaging Report ---
INDICATION: Trauma, hip pain. EXAMINATION: Right hip at 3:17 p.m. AP and lateral views were obtained. COMPARISON: There is no prior study available for comparison. FINDINGS: There is no fracture, dislocation or acute bony abnormality evident. There is moderate degenerative disease of the hip joint. The soft tissues are unremarkable. IMPRESSION: There is no evidence for an acute bony abnormality. Dictated by: Dictated on workstation # [id number]
--- NOTE | 2020-09-24 15:43 | Diagnostic Imaging Report ---
INDICATION: Knee pain. EXAMINATION: Left knee at 3:18 p.m. Three views were obtained. COMPARISON: There is no prior study available for comparison. FINDINGS: There is no fracture, dislocation or acute bony abnormality evident. There is a total knee prosthesis in place and the prosthetic components seem to be in good position. The soft tissues are generally unremarkable. The lateral view does show a small 6 mm well-circumscribed calcific density interposed between the distal femur and the superior pole of the patella. I suspect this finding is sequela of prior trauma. IMPRESSION: 1. There is no evidence for an acute bony abnormality. 2. The total knee prosthesis appears to be stable. Dictated by: Dictated on workstation # [id number]
== END 2020-09-24 15:32 | disposition home or self-care (01) ==
LOC: EDUNIT# 14:44 → ER FS 14:46
DX: S80.02XA Contusion of left knee, initial encounter (principal); M16.11 Unilateral primary osteoarthritis, right hip; M06.9 Rheumatoid arthritis, unspecified; F03.90 Unspecified dementia, unspecified severity, without behavioral disturbance, psychotic disturbance, mood disturbance, and anxiety; Z96.653 Presence of artificial knee joint, bilateral; W19.XXXA Unspecified fall, initial encounter
CPT/HCPCS: 73502; 73562

== ENCOUNTER 2020-09-30 12:19 | Emergency (ER) | payer MEDICARE ==
--- NOTE | 2020-09-30 12:47 | ED General ---
General Stated Complaint: GEN WEAKNESS|SWELLING HANDS/FEET|ALTERED MENTAL ST Source of Information: Patient History of Present Illness Date Seen by Provider: Sep 30, 2020 Time Seen by Provider: 12:40 Initial Comments 75-year-old female presents with her younger sister with concerns of continuing physical decline and mental decline and is unable to take care of herself. She does live at home alone and has had home health coming to her house, however the concern is that she needs a much higher level of care than she is getting. Currently she is unable to stand or walk on her own and the family is unable to take care of her. She is without complaint however. Allergies and Home Medications Allergies Coded Allergies: Penicillins (Verified Allergy, Intermediate, rash, 12/03/18) oseltamivir (Verified Allergy, Intermediate, Vomiting, 12/03/18) Home Medications Naproxen 500 Mg Tablet, 500 MG PO BID Prescribed by: ZACKERY GREENWOOD on 09/22/20 0132 Last Action: Last Taken Edited [place]-3/Dha/Epa/Fish Oil 1 Each Capsule, 1 EACH PO DAILY, (Reported) Last Action: New Order Phenytoin Sodium Extended 100 Mg Capsule, 300 MG PO HS, (Reported) Last Action: New Order [Vitamin B12] , PO DAILY, (Reported) Last Action: New Order Patient Home Medication List Home Medication List Reviewed: Yes Review of Systems Review of Systems Constitutional: No chills, No fever, No malaise; weakness, weight loss EENTM: no symptoms reported Respiratory: no symptoms reported; No cough, No short of breath Cardiovascular: no symptoms reported; No chest pain, No edema, No syncope Gastrointestinal: No abdominal pain, No constipation; loss of appetite; No nausea, No vomiting Musculoskeletal: no symptoms reported Skin: No change in color, No lesions, No rash Past [place]gy[place]ie-Fqqzug-Pamrxr Hx Past Med/Social Hx: Reviewed Nursing Past Med/Soc Hx Patient Social History 2nd Hand Smoke Exposure: No Recent Hopitalizations: No Seasonal Allergies Seasonal Allergies: No Past Medical History Surgeries: Yes Orthopedic Respiratory: No Cardiac: Yes High Cholesterol Neurological: Yes Seizure Disorder Genitourinary: No Gastrointestinal: No Musculoskeletal: No Endocrine: No HEENT: No Cancer: No Psychosocial: No Integumentary: No Blood Disorders: No Physical Exam Vital Signs Vital Signs - First Documented 09/30/20 12:24 Temp 36.8 Pulse 82 Resp 20 B/P (MAP) 137/66 (89) Pulse Ox 98 O2 Delivery Room Air Capillary Refill : Height, Weight, BMI Height: 5'1.00" Weight: 160lbs. oz. 72.520940bd; 21.00 BMI Method:Stated General Appearance: No Apparent Distress, WD/WN Eyes: Bilateral Eye Normal Inspection, Bilateral Eye PERRL, Bilateral Eye EOMI HEENT: PERRL/EOMI, TMs Normal, Normal ENT Inspection Neck: Full Range of Motion, Normal Inspection, Non Tender, Supple Respiratory: Chest Non Tender, Lungs Clear, Normal Breath Sounds, No Accessory Muscle Use, No Respiratory Distress Cardiovascular: Regular Rate, Rhythm, No Edema, No JVD Gastrointestinal: Normal Bowel Sounds, No Pulsatile Mass, Non Tender, Soft Back: Normal Inspection, No CVA Tenderness Extremity: Normal Capillary Refill, Normal Inspection, Non Tender Neurologic/Psychiatric: Alert, No Motor/Sensory Deficits, Normal Mood/Affect Skin: Normal Color, Warm/Dry Focused Exam Lactate Level 09/30/20 12:54: Lactic Acid Level 0.84 Lactic Acid Level Laboratory Tests Test 09/30/20 12:54 Lactic Acid Level 0.84 MMOL/L (0.50-2.00) Progress/Results/Core Measures Suspected Sepsis SIRS Temperature: Pulse: Respiratory Rate: Laboratory Tests 09/30/20 12:54: White Blood Count 7.9 Blood Pressure / Mean: 09/30/20 12:54: Lactic Acid Level 0.84 Laboratory Tests 09/30/20 12:54: Creatinine 0.62, Platelet Count 234, Total Bilirubin 0.2 Results/Orders Lab Results Laboratory Tests Test 09/30/20 12:54 09/30/20 13:07 Range/Units White Blood Count 7.9 4.3-11.0 10^3/uL Red Blood Count 3.90 L 4.35-5.85 10^6/uL Hemoglobin 12.1 11.5-16.0 G/DL Hematocrit 36 35-52 % Mean Corpuscular Volume 93 80-99 FL Mean Corpuscular Hemoglobin 31 25-34 PG Mean Corpuscular Hemoglobin Concent 33 32-36 G/DL Red Cell Distribution Width 13.4 10.0-14.5 % Platelet Count 234 130-400 10^3/uL Mean Platelet Volume 8.8 7.4-10.4 FL Immature Granulocyte % (Auto) 0 % Neutrophils (%) (Auto) 64 42-75 % Lymphocytes (%) (Auto) 26 12-44 % Monocytes (%) (Auto) 9 0-12 % Eosinophils (%) (Auto) 1 0-10 % Basophils (%) (Auto) 1 0-10 % Neutrophils # (Auto) 5.0 1.8-7.8 X 10^3 Lymphocytes # (Auto) 2.0 1.0-4.0 X 10^3 Monocytes # (Auto) 0.7 0.0-1.0 X 10^3 Eosinophils # (Auto) 0.1 0.0-0.3 10^3/uL Basophils # (Auto) 0.1 0.0-0.1 10^3/uL Immature Granulocyte # (Auto) 0.0 0.0-0.1 10^3/uL Sodium Level 142 135-145 MMOL/L Potassium Level 3.9 3.6-5.0 MMOL/L Chloride Level 107 98-107 MMOL/L Carbon Dioxide Level 29 21-32 MMOL/L Anion Gap 6 5-14 MMOL/L Blood Urea Nitrogen 22 H 7-18 MG/DL Creatinine 0.62 0.60-1.30 MG/DL Estimat Glomerular Filtration Rate > 60 BUN/Creatinine Ratio 35 Glucose Level 102 70-105 MG/DL Lactic Acid Level 0.84 0.50-2.00 MMOL/L Calcium Level 9.0 8.5-10.1 MG/DL Corrected Calcium 9.2 8.5-10.1 MG/DL Total Bilirubin 0.2 0.1-1.0 MG/DL Aspartate Amino Transf (AST/SGOT) 28 5-34 U/L Alanine Aminotransferase (ALT/SGPT) 31 0-55 U/L Alkaline Phosphatase 80 40-136 U/L Total Protein 6.2 L 6.4-8.2 GM/DL Albumin 3.8 3.2-4.5 GM/DL Urine Color YELLOW Urine Clarity CLOUDY Urine pH 7.5 5-9 Urine Specific [employer] [place] 1.020 1.016-1.022 Urine Protein NEGATIVE NEGATIVE Urine Glucose (UA) NEGATIVE NEGATIVE Urine Ketones NEGATIVE NEGATIVE Urine Nitrite NEGATIVE NEGATIVE Urine Bilirubin NEGATIVE NEGATIVE Urine Urobilinogen 0.2 < = 1.0 MG/DL Urine Leukocyte Esterase NEGATIVE NEGATIVE Urine RBC (Auto) NEGATIVE NEGATIVE Urine RBC NONE /HPF Urine WBC NONE /HPF Urine Squamous Epithelial Cells NONE /HPF Urine Crystals NONE /LPF Urine Bacteria LARGE H /HPF Urine Casts NONE /LPF Urine Mucus NEGATIVE /LPF Urine Culture Indicated YES My Orders Orders - MARV GARCIA DO Ed Iv/Invasive Line Start (09/30/20 12:47) Cbc With Automated Diff (09/30/20 12:47) Comprehensive Metabolic Panel (09/30/20 12:47) Urinalysis (09/30/20 12:47) Lactic Acid Analyzer (09/30/20 12:47) Urine Culture (09/30/20 13:07) Vital Signs/I&O 09/30/20 12:24 Temp 36.8 Pulse 82 Resp 20 B/P (MAP) 137/66 (89) Pulse Ox 98 O2 Delivery Room Air Capillary Refill : Departure Communication (Admissions) spoke to Dr Jurado @ 1330h agrees to accept pt for OBS admission to [facility] for Senior eval. Pt with signs of dementia and depression. Talked to sister who brought her to ER today regarding DPOA, she states it is, Arley Woodruff CPA. Impression Primary Impression: Physical debility Additional Impressions: Dementia Qualified Codes: F03.90 - Unspecified dementia without behavioral disturbance Depression Qualified Codes: F32.9 - Major depressive disorder, single episode, unspecified At risk for falls Disposition: XFER SHT-TRM HOSP Condition: Unchanged Transfer Transfer Reason: Diversion Time Spoke to Accepting Phy: 13:[address] Valencia advised pt needs care evfl and [facility] has a unit suitable Departure-Patient Inst. Referrals: GAURAV OMER MD (PCP/Family) Primary Care Physician MARV GARCIA DO Sep 30, 2020 12:47
[2020-09-30 13:01] LABS: BASOPHILS # (AUTO) 0.1 10^3/uL (0.0-0.1); BASOPHILS % (AUTO) 1 % (0-10); EOSINOPHILS # (AUTO) 0.1 10^3/uL (0.0-0.3); EOSINOPHILS % (AUTO) 1 % (0-10); HEMATOCRIT 36 % (35-52); HEMOGLOBIN 12.1 G/DL (11.5-16.0); LYMPHOCYTES % (AUTO) 26 % (12-44); MEAN CORPUSCULAR HEMOGLOBIN 31 PG (25-34); MEAN CORPUSCULAR HGB CONC 33 G/DL (32-36); MEAN CORPUSCULAR VOLUME 93 FL (80-99); MEAN PLATELET VOLUME 8.8 FL (7.4-10.4); MONOCYTES # (AUTO) 0.7 X 10^3 (0.0-1.0); MONOCYTES % (AUTO) 9 % (0-12); NEUTROPHILS % (AUTO) 64 % (42-75); PLATELET COUNT 234 10^3/uL (130-400); WHITE BLOOD COUNT 7.9 10^3/uL (4.3-11.0)
[2020-09-30 13:14] LABS: BACTERIA,URINE LARGE /HPF; BILIRUBIN,URINE NEGATIVE (NEGATIVE); CLARITY,URINE CLOUDY; COLOR,URINE YELLOW; GLUCOSE, URINE (UA) NEGATIVE (NEGATIVE); KETONES,URINE NEGATIVE (NEGATIVE); LEUKOCYTE ESTERASE ,URINE NEGATIVE (NEGATIVE); NITRITE,URINE NEGATIVE (NEGATIVE); PH,URINE 7.5 (5-9); PROTEIN,URINE NEGATIVE (NEGATIVE)
[2020-09-30 13:22] LABS: ALANINE AMINOTRANSFERASE 31 U/L (0-55); ALBUMIN 3.8 GM/DL (3.2-4.5); ALKALINE PHOSPHATASE 80 U/L (40-136); BILIRUBIN,TOTAL 0.2 MG/DL (0.1-1.0); BUN/CREATININE RATIO 35; CARBON DIOXIDE 29 MMOL/L (21-32); CHLORIDE 107 MMOL/L (98-107); CREATININE SERUM 0.62 MG/DL (0.60-1.30); GFR ESTIMATED > 60; GLUCOSE 102 MG/DL (70-105); POTASSIUM 3.9 MMOL/L (3.6-5.0); SODIUM 142 MMOL/L (135-145); TOTAL PROTEIN 6.2 GM/DL (6.4-8.2)
[2020-09-30] MEDS ORDERED: ERGO50006 (14:38)
[2020-09-30] MEDS ORDERED: LEVO-129 (14:38)
[2020-09-30 15:15] VITALS: BP 146/88
[2020-09-30] MEDS ORDERED: PHEN100C11 PO (15:22)
[2020-09-30] MEDS ORDERED: OMEG-160 PO (15:31)
[2020-09-30] MEDS ORDERED: Vitamin B12 PO (15:31)
== END 2020-09-30 15:15 | disposition short-term general hospital (02) ==
LOC: EDUNIT# 12:19 → ER FS 12:22
DX: F03.90 Unspecified dementia, unspecified severity, without behavioral disturbance, psychotic disturbance, mood disturbance, and anxiety (principal); F32.9 Major depressive disorder, single episode, unspecified; R53.81 Other malaise; Z91.81 History of falling
CPT/HCPCS: 36415; 80053; 81000; 83605; 85025; 87088

== ENCOUNTER 2020-12-27 19:58 | Inpatient (IN) | payer MEDICARE ==
[~2020-12-27] VITALS: Ht 157.5 cm; Wt 54.2 kg
[~2020-12-27 19:58] MED LIST changes: +ERGO1250 PO; +LEVO-129 PO; +OMEG-160 PO; +PHEN100C11 PO; -SULF1TAB35 PO; +SULF1TAB38 PO; +Vitamin B12 PO
[2020-12-27 20:34] LABS: BILIRUBIN,URINE NEGATIVE (NEGATIVE); CLARITY,URINE CLEAR; COLOR,URINE YELLOW; GLUCOSE, URINE (UA) TRACE (NEGATIVE); KETONES,URINE NEGATIVE (NEGATIVE); LEUKOCYTE ESTERASE ,URINE NEGATIVE (NEGATIVE); NITRITE,URINE NEGATIVE (NEGATIVE); PROTEIN,URINE 1+ (NEGATIVE)
[2020-12-27 20:35] LABS: ABG BASE EXCESS 3.9 MMOL/L (-2.5-2.5); ABG OXYGEN SATURATION 96 % (94-100); ABG PCO2 41 MMHG (35-45); ABG PH 7.44 (7.37-7.43); ABG PO2 81 MMHG (79-93); ABG TCO2 29.1 MMOL/L (21.0-31.0)
[2020-12-27 20:36] LABS: ALLENS TEST YES-POS; INSPIRED O2 2L; PATIENT TEMP 98.5; VENTILATOR NO
[2020-12-27 20:39] LABS: ALBUMIN 3.6 GM/DL (3.2-4.5); BILIRUBIN,TOTAL 0.2 MG/DL (0.1-1.0); CALCIUM 9.5 MG/DL (8.5-10.1); CREATININE SERUM 0.77 MG/DL (0.60-1.30); POTASSIUM 3.5 MMOL/L (3.6-5.0); TOTAL PROTEIN 6.2 GM/DL (6.4-8.2)
[2020-12-27 20:53] LABS: BASOPHILS # (AUTO) 0.1 10^3/uL (0.0-0.1); BASOPHILS % (AUTO) 1 % (0-10); EOSINOPHILS # (AUTO) 0.2 10^3/uL (0.0-0.3); EOSINOPHILS % (AUTO) 2 % (0-10); HEMATOCRIT 38 % (35-52); HEMOGLOBIN 12.4 g/dL (11.5-16.0); LYMPHOCYTES # (AUTO) 1.8 10^3/uL (1.0-4.0); LYMPHOCYTES % (AUTO) 15 % (12-44); MEAN CORPUSCULAR HEMOGLOBIN 30 pg (25-34); MEAN CORPUSCULAR HGB CONC 32 g/dL (32-36); MEAN CORPUSCULAR VOLUME 94 fL (80-99); MEAN PLATELET VOLUME 10.4 fL (9.0-12.2); MONOCYTES # (AUTO) 0.8 10^3/uL (0.0-1.0); MONOCYTES % (AUTO) 7 % (0-12); NEUTROPHILS # (AUTO) 8.9 10^3/uL (1.8-7.8); NEUTROPHILS % (AUTO) 76 % (42-75); PLATELET COUNT 193 10^3/uL (130-400); WHITE BLOOD COUNT 11.7 10^3/uL (4.3-11.0)
[2020-12-27 20:59] LABS: CREATINE KINASE MB 5.6 NG/ML (<6.6)
[2020-12-27 21:00] LABS: BACTERIA,URINE NEGATIVE /HPF; WBC,URINE 0-2 /HPF
--- NOTE | 2020-12-27 21:00 | ED General ---
General Chief Complaint: Respiratory Problems Stated Complaint: RESP ISSUES Source of Information: Patient (PT WITH DEMENTIA AND NOT RELIABLE HISTORIAN), EMS, Fpc Records, Old Records History of Present Illness Date Seen by Provider: Dec 27, 2020 Time Seen by Provider: 19:58 Initial Comments PT ARRIVES VIA EMS FROM [facility] WAS CALLED FOR PT WITH CHEST PAIN AND SHORTNESS OF BREATH EMS REPORT O2 SAT WAS 78% ON ROOM AIR, UP TO 97% ON 5L/NC PT ALSO REPORTEDLY FELL ON HER FACE 2 DAYS AGO, BUT WAS NOT BROUGHT TO ER PT WITH DEMENTIA AND IS UNRELIABLE HISTORIAN PT ANSWERS NO TO ALL QUESTIONS, REGARDING PAIN, SHORTNESS OF BREATH, COUGH, FEVER, NAUSEA/VOMITING/DIARRHEA, OR PAIN ANYWHERE PT WAS AT [facility] 09/30/20 FOR GENERALIZED DEBILITY, AND WAS ADMITTED TO [facility] FOR APPARENT DEMENTIA AND DEPRESSION. SINCE THEN, PT HAS BEEN ADMITTED TO [facility] ON 10/10/20 PCP: DR. JEAN AT [facility]. DR. OMER WAS HER PHYSICIAN PRIOR TO BEING IN [facility], AND STILL SEES HIM IN OFFICE. Allergies and Home Medications Allergies Coded Allergies: Penicillins (Verified Allergy, Intermediate, rash, 12/03/18) oseltamivir (Verified Allergy, Intermediate, Vomiting, 12/03/18) Home Medications Naproxen 500 Mg Tablet, 500 MG PO BID Prescribed by: ZACKERY GREENWOOD on 09/22/20 0132 [place]-3/Dha/Epa/Fish Oil 1 Each Capsule, 1 EACH PO DAILY, (Reported) Phenytoin Sodium Extended 100 Mg Capsule, 300 MG PO HS, (Reported) [Vitamin B12] , PO DAILY, (Reported) Patient Home Medication List Home Medication List Reviewed: Yes Review of Systems Review of Systems Constitutional: other (PT STATES "NO" TO ALL QUESTIONS) Past Bvpmnun-Cqpymx-Pupqhy Hx Seasonal Allergies Seasonal Allergies: No Past Medical History Surgeries: Yes Orthopedic Respiratory: No Cardiac: Yes High Cholesterol Neurological: Yes Dementia, Seizure Disorder Genitourinary: No Gastrointestinal: No Musculoskeletal: No Endocrine: No HEENT: No Cancer: No Psychosocial: Yes Schizophrenia, Depression Integumentary: No Blood Disorders: No Physical Exam Vital Signs Vital Signs - First Documented 12/27/20 12/27/20 20:00 20:02 Temp 36.9 Pulse 107 Resp 16 B/P (MAP) 120/57 (78) Pulse Ox 93 O2 Delivery Room Air O2 Flow Rate 4.00 Capillary Refill : Height, Weight, BMI Height: 5'1.00" Weight: 160lbs. oz. 72.621673hs; 21.00 BMI Method:Stated General Appearance: No Apparent Distress, WD/WN, Other (VERY FLAT AFFECT) HEENT: PERRL/EOMI, Other (MILD BRUISING AND SWELLING TO BRIDGE OF NOSE) Neck: Normal Inspection Respiratory: Normal Breath Sounds, No Accessory Muscle Use, No Respiratory Di stress Cardiovascular: Regular Rate, Rhythm, No Edema, No JVD, No Murmur, Normal Peripheral Pulses Gastrointestinal: Normal Bowel Sounds, No Organomegaly, Non Tender, Soft Extremity: Normal Inspection, No Pedal Edema Neurologic/Psychiatric: Alert, Other (ORIENTED TO PERSON, SPEECH IS MINIMAL BUT IS CLEAR. PT ABLE TO FOLLOW VERY SIMPLE COMMANDS, MOVES ALL EXTREMITIES EQUALLY) Skin: Normal Color, Warm/Dry Focused Exam Lactate Level 12/27/20 20:00: Lactic Acid Level 2.57*H 12/27/20 22:13: Lactic Acid Level 1.81 Lactic Acid Level Laboratory Tests Test 12/27/20 20:00 12/27/20 22:13 Lactic Acid Level 2.57 MMOL/L (0.50-2.00) *H 1.81 MMOL/L (0.50-2.00) Progress/Results/Core Measures Suspected Sepsis SIRS Temperature: Pulse: Respiratory Rate: Laboratory Tests 12/27/20 20:00: White Blood Count 11.7H Blood Pressure / Mean: 12/27/20 20:00: Lactic Acid Level 2.57*H 12/27/20 22:13: Lactic Acid Level 1.81 Laboratory Tests 12/27/20 20:00: Creatinine 0.77, INR Comment 1.1, Platelet Count 193, Total Bilirubin 0.2 Results/Orders Lab Results Laboratory Tests Test 12/27/20 20:00 12/27/20 20:12 12/27/20 20:18 12/27/20 22:13 Range/Units White Blood Count 11.7 H 4.3-11.0 10^3/uL Red Blood Count 4.08 3.80-5.11 10^6/uL Hemoglobin 12.4 11.5-16.0 g/dL Hematocrit 38 35-52 % Mean Corpuscular Volume 94 80-99 fL Mean Corpuscular Hemoglobin 30 25-34 pg Mean Corpuscular Hemoglobin Concent 32 32-36 g/dL Red Cell Distribution Width 12.6 10.0-14.5 % Platelet Count 193 130-400 10^3/uL Mean Platelet Volume 10.4 9.0-12.2 fL Immature Granulocyte % (Auto) 0 % Neutrophils (%) (Auto) 76 H 42-75 % Lymphocytes (%) (Auto) 15 12-44 % Monocytes (%) (Auto) 7 0-12 % Eosinophils (%) (Auto) 2 0-10 % Basophils (%) (Auto) 1 0-10 % Neutrophils # (Auto) 8.9 H 1.8-7.8 10^3/uL Lymphocytes # (Auto) 1.8 1.0-4.0 10^3/uL Monocytes # (Auto) 0.8 0.0-1.0 10^3/uL Eosinophils # (Auto) 0.2 0.0-0.3 10^3/uL Basophils # (Auto) 0.1 0.0-0.1 10^3/uL Immature Granulocyte # (Auto) 0.0 0.0-0.1 10^3/uL Erythrocyte Sedimentation Rate 7 0-30 MM/HR Prothrombin Time 14.5 12.2-14.7 SEC INR Comment 1.1 0.8-1.4 Activated Partial Thromboplast Time 27 24-35 SEC D-Dimer 3.65 H 0.00-0.49 UG/ML Sodium Level 143 135-145 MMOL/L Potassium Level 3.5 L 3.6-5.0 MMOL/L Chloride Level 106 98-107 MMOL/L Carbon Dioxide Level 25 21-32 MMOL/L Anion Gap 12 5-14 MMOL/L Blood Urea Nitrogen 17 7-18 MG/DL Creatinine 0.77 0.60-1.30 MG/DL Estimat Glomerular Filtration Rate 73 BUN/Creatinine Ratio 22 Glucose Level 175 H 70-105 MG/DL Lactic Acid Level 2.57 *H 1.81 0.50-2.00 MMOL/L Calcium Level 9.5 8.5-10.1 MG/DL Corrected Calcium 9.8 8.5-10.1 MG/DL Magnesium Level 3.0 H 1.6-2.4 MG/DL Total Bilirubin 0.2 0.1-1.0 MG/DL Aspartate Amino Transf (AST/SGOT) 41 H 5-34 U/L Alanine Aminotransferase (ALT/SGPT) 35 0-55 U/L Alkaline Phosphatase 90 40-136 U/L Lactate Dehydrogenase 317 H 125-220 U/L Total Creatine Kinase 89 29-168 U/L Creatine Kinase MB 5.6 <6.6 NG/ML Myoglobin 56.8 10.0-92.0 NG/ML Troponin I 0.036 H <0.028 NG/ML C-Reactive Protein High Sensitivity 0.68 H 0.00-0.50 MG/DL B-Type Natriuretic Peptide 35.2 <100.0 PG/ML Total Protein 6.2 L 6.4-8.2 GM/DL Albumin 3.6 3.2-4.5 GM/DL Amylase Level 56 25-125 U/L Lipase 7 L 8-78 U/L Procalcitonin 0.04 <0.10 NG/ML TSH [place] Testing 1.75 0.35-4.94 UIU/ML Influenza Type A (RT-PCR) Not Detected Not Detecte Influenza Type B (RT-PCR) Not Detected Not Detecte SARS-CoV-2 RNA (RT-PCR) Not Detected Not Detecte Urine Color YELLOW Urine Clarity CLEAR Urine pH 7.0 5-9 Urine Specific [place] 1.020 1.016-1.022 Urine Protein 1+ H NEGATIVE Urine Glucose (UA) TRACE H NEGATIVE Urine Ketones NEGATIVE NEGATIVE Urine Nitrite NEGATIVE NEGATIVE Urine Bilirubin NEGATIVE NEGATIVE Urine Urobilinogen 0.2 < = 1.0 MG/DL Urine Leukocyte Esterase NEGATIVE NEGATIVE Urine RBC (Auto) NEGATIVE NEGATIVE Urine RBC NONE /HPF Urine WBC 0-2 /HPF Urine Squamous Epithelial Cells NONE /HPF Urine Renal Epithelial Cells NONE /HPF Urine Crystals NONE /LPF Urine Bacteria NEGATIVE /HPF Urine Casts NONE /LPF Urine Mucus NEGATIVE /LPF Urine Culture Indicated NO Blood Gas Puncture Site L WRIST Blood Gas Patient Temperature 98.5 Arterial Blood pH 7.44 H 7.37-7.43 Arterial Blood Partial Pressure CO2 41 35-45 MMHG Arterial Blood Partial Pressure O2 81 79-93 MMHG Arterial Blood HCO3 28 H 23-27 MMOL/L Arterial Blood Total CO2 29.1 21.0-31.0 MMOL/L Arterial Blood Oxygen Saturation 96 94-100 % Arterial Blood Base Excess 3.9 H -2.5-2.5 MMOL/L Darius Test YES-POS Blood Gas Ventilator Setting NO Blood Gas Inspired Oxygen 2L My Orders Orders - MELISSA MEDRANO DO Ed Iv/Invasive Line Start (12/27/20 20:) Ekg Tracing (12/27/20 20:) Catheter(Urinary) Insert & Ass 03,15 (12/27/20 20:) Monitor-Rhythm Ecg Trace Only (12/27/20:) Chest 1 View, Ap/Pa Only (12/27/20:) Amylase (12/27/20 20:) Arterial Blood Gas (12/27/20:) BNP (12/27/20:) Cbc With Automated Diff (12/27/20:) Comprehensive Metabolic Panel (12/27/20:) Creatine Kinase (12/27/20:) Creatine Kinase Mb (12/27/20 20:) Lactic Acid Analyzer (12/27/20:) Lipase (12/27/20:) Magnesium (12/27/20:) Procalcitonin (Pct) (12/27/20 20:) Protime With Inr (12/27/20:) Partial Thromboplastin Time (12/27/20:) Ua Culture If Indicated (12/27/20:) Blood Culture (12/27/20 20:) Myoglobin Serum (12/27/20 20:) Troponin I (12/27/20 20:) Ct Head/Face/Cervical Wo (12/27/20 20:01) Fibrin Degradation Products (12/27/20 20:) Hs C Reactive Protein (12/27/20 20:) Erythrocyte Sedimentation Rate (12/27/20 20:) LDH (12/27/20 20:01) Covid 19 Inhouse Test (12/27/20 20:) Influenza A And B By Pcr (12/27/20 20:) Ct Chest/Abdomen/Pelvis Wo (12/27/20 20:51) Straight Cath For Spec.-Adult (12/27/20 21:13) O2 (12/27/20 21:13) Ct Angio Chest W (12/27/20 21:45) Ed Iv/Invasive Line Start (12/27/20 21:46) Lactated Ringers (Lr 1000 Ml Iv Solution (12/27/20 22:00) Iohexol Injection (Omnipaque 350 Mg/Ml 1 (12/27/20 22:15) Received Contrast (Hold Metformin- Contr (12/27/20 22:15) Ns (Ivpb) (Sodium Chloride 0.9% Ivpb Bag (12/27/20 22:15) Sodium Chloride Flush (Catheter Flush Sy (12/27/20 22:15) Medications Given in ED Current Medications Medications Dose Ordered Sig/Horace Route Start Time Stop Time Status Last Admin Dose Admin Heparin Sodium (Porcine) HEPARIN FULL PROTOC... ONCE ONCE IV 12/27/20 23:00 12/27/20 23:17 DC 12/28/20 00:13 4,336 UNIT Heparin Sodium/ Dextrose 500 ml @ 0 mls/hr Q0M ONCE IV 12/27/20 23:00 12/27/20 23:17 DC 12/28/20 00:14 23.4 MLS/HR Iohexol 100 ml ONCE ONCE IV 12/27/20 22:15 12/27/20 22:16 DC 12/27/20 22:53 80 ML Lactated Ringer's 1,000 ml @ 0 mls/hr Q0M ONCE IV 12/27/20 22:00 12/27/20 22:01 DC 12/27/20 22:25 999 MLS/HR Sodium Chloride 10 ml NEEDED PRN IV 12/27/20 22:15 12/28/20 00:41 DC 12/27/20 22:53 10 ML Sodium Chloride 100 ml ONCE ONCE IV 12/27/20 22:15 12/27/20 22:16 DC 12/27/20 22:53 80 ML Vital Signs/I&O 12/27/20 12/27/20 20:00 20:02 Temp 36.9 Pulse 107 Resp 16 B/P (MAP) 120/57 (78) Pulse Ox 93 O2 Delivery Room Air Nasal Cannula O2 Flow Rate 4.00 Capillary Refill : Progress Note : Progress Note PLACED IN ISOLATION ROOM PPE WORN AT ALL TIMES COVID-19 TESTING PERFORMED PT MAINTAINED O2 SATS IN UPPER 90'S ON O2 AT 2L/NC NO DETERIORATION IN PT'S CONDITION DURING ER STAY PT HAD NO COMPLAINTS AND RESTED QUIETLY FOR ENTIRE ER STAY NO COUGH NO DYSPNEA NO FEVER ECG Initial ECG Impression Date: Dec 27, 2020 Initial ECG Impression Time: 20:03 Initial ECG Rate: 105 Initial ECG Rhythm: S.Tach Diagnostic Imaging Comments PER RADIOLOGIST REPORTS AT 2140: CXR-- FINDINGS: Heart size and mediastinal contours are unremarkable. No identified pneumothorax, large pleural effusion, or focal airspace consolidation. IMPRESSION: No identified acute cardiopulmonary abnormality. CT HEAD/MAXILLOFACIALS/CERVICAL SPINE-- Findings: The temporomandibular joints are normally aligned bilaterally. 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 There is chondrocalcinosis. The mandible is intact. There are bilateral mildly displaced nasal bone fractures. There is deviation of the bony nasal septum to the left of midline. There is no additional identified maxillofacial bone fracture. The visualized portions of the paranasal sinuses, mastoid air cells, and middle ears are well aerated. The globes are grossly intact. There is no retro-orbital hematoma. There is soft tissue swelling at the level of the nose. There is no identified skull fracture. There is proportional prominence of the ventricles and additional CSF spaces consistent with mild to moderate cerebral volume loss. There is no abnormal extra-axial fluid collection. There is no evidence of acute intracranial hemorrhage. There is no mass effect or midline shift. There is no identified facet joint subluxation or dislocation. There are multilevel facet degenerative changes of the cervical spine. There is no asymmetric widening of the cervical disc spaces. There are multilevel severe disc degenerative changes of the cervical spine with multilevel posterior disc osteophyte complexes. There is chondrocalcinosis. CT is limited for assessment of disc pathology and evaluation of non-bony causes of pathology in the spinal canal. There is no identified acute fracture of the cervical spine. Very limited visualized portions of the lung apices are grossly clear. There is an incompletely imaged low-attenuation masslike abnormality along the posterior aspect of the left lobe of the thyroid measuring 3.6 x 2.8 cm in axial dimension. There are carotid vascular calcifications. Impression: 1. Mildly displaced bilateral nasal bone fractures. 2. No additional identified maxillofacial bone fracture. 3. No identified acute intracranial abnormality. 4. Mild to moderate cerebral volume loss. 5. No identified acute fracture of the cervical spine. 6. Multilevel extensive disc and facet degenerative changes of the cervical spine. 6. Sizable soft tissue attenuation mass adjacent to the posterior aspect of the left lobe of the thyroid indeterminate and does raise concern for possible malignancy. Complete workup for definitive diagnosis is needed. CT CHEST/ABDOMEN/PELVIS-- FINDINGS: There are limitations for evaluation of the abdominal organs, neoplastic processes, abscess, and limited evaluation of the vasculature relating to the lack of intravenous contrast. There is a noncalcified right lower lobe pulmonary nodule on axial image 32 measuring 5 mm in size. There is a benign calcified 6 mm left lower lobe granuloma on axial image 31. There are calcified left hilar granulomas. There is no additional focal airspace consolidation. There is no pneumothorax. There is no pleural effusion. The central airways are patent. The heart is not enlarged. There is a partially calcified heterogeneous attenuation mass adjacent to the posterior aspect of the left lobe of the thyroid extending into the superior mediastinum measuring 3.1 x 3.2 cm in axial dimension. There is no otherwise identified mediastinal mass or lymph node. There is no abnormally enlarged axillary lymph node meeting CT size criteria for adenopathy. The liver is unremarkable in size and contour. The gallbladder is unremarkable. There is no identified biliary ductal dilation. The main pancreatic duct is not grossly dilated. Limited noncontrast evaluation of the pancreatic parenchyma is unremarkable. The spleen is not enlarged. The adrenal glands are unremarkable. There is a heterogeneous attenuation left renal lesion with layering high attenuation measuring 2.3 cm in size on axial image 66 which is indeterminate. There are low-attenuation lesions in the region of left renal sinus which likely reflect parapelvic cysts with one example measuring 1.6 cm in size on axial image 62. There are also probable right parapelvic cysts. There is no clear hydronephrosis. There is no identified renal or ureteral stone. There are pelvic calcifications compatible with phleboliths. Urinary bladder is unremarkable. The intestinal tract is not distended. There is no free intraperitoneal air. There is no drainable fluid collection. There is no sizable volume free pelvic fluid. There are atherosclerotic calcifications. There is no identified abnormally enlarged lymph node in the abdomen or pelvis meeting CT size criteria for adenopathy. There are multilevel degenerative changes of the spine. There is no identified acute bony abnormality. IMPRESSION: CT chest, abdomen, and pelvis. 1. Partially calcified heterogeneous attenuation mass adjacent to the posterior aspect of the left lobe of the thyroid extending into the superior mediastinum measuring 3.1 x 3.2 cm in size. Workup for definitive diagnosis is needed. Differential diagnostic considerations would include a primary parathyroid lesion including parathyroid carcinoma as well as a mediastinal mass such as teratoma, lymphoma or a thymic origin neoplasm. 2. No otherwise identified abnormally enlarged lymph node at the level of the chest, abdomen, or pelvis. 3. 5 mm noncalcified lower lobe pulmonary nodule. 4. No identified acute abnormality at the level of the chest, abdomen, or pelvis. CT CHEST ANGIOGRAM--PER RADIOLOGIST REPORT AT 2244 FINDINGS: There are dependent opacities in the right and left lower lobes most compatible with atelectasis. There is no pneumothorax. There is no pleural effusion. There is embolus bridging across the main pulmonary artery bifurcation extending into left upper lobe, left lower lobe, right lower lobe, right middle lobe, and right upper lobe segmental and subsegmental pulmonary artery branches. The main pulmonary artery diameter measures 2.8 cm which is right at the upper limits of normal. There is no reflux of contrast into hepatic veins. The heart is not enlarged. There is no pericardial effusion. There is no identified abnormally enlarged mediastinal, hilar, or axillary lymph node meeting CT size criteria for adenopathy. There is low-attenuation partially calcified left thyroid nodule measuring 1.6 cm in size. There is a heterogeneous attenuation partially calcified mass adjacent to the posterior aspect of the left lobe of the thyroid extending into the mediastinum measuring 3.7 x 2.8 cm in size. There are left parapelvic cysts and indeterminate left parapelvic lesion with layering internal high attenuation. Impression: 1. Embolus bridging across the main pulmonary artery extending into the right upper lobe, right middle lobe, right lower lobe, left upper lobe, and left lower lobe segmental and subsegmental branches with main pulmonary artery diameter at the upper limits of normal. No reflux of contrast into hepatic veins. 2. Redemonstrated partially calcified gas adjacent to the posterior aspect of the left lobe of the thyroid extending into the superior mediastinum. Workup for definitive diagnosis is needed. 3. Indeterminate 1.6 cm left thyroid nodule. Further evaluation is recommended of this as well. Reviewed: Reviewed by Me Departure Communication (Admissions) 2245--SPOKE WITH DR. ALAMO, I WILL CONTACT SISTER AND CALL HER BACK 2251--SPOKE WITH PT'S SISTER, GWEN HUBBARD, WHO IS ALSO PT'S DPOA. REVIEWED TEST RESULTS AND DISCUSSED OPTIONS OF AGGRESSIVE TREATMENT WITH TRANSFER TO FACILITY OF HIGHER LEVEL OF CARE, VS KEEPING HERE AND GIVING BLOOD THINNERS AND POSSIBLY HOSPICE. SISTER STATES SHE DOES NOT WANT AGGRESSIVE TREATMENT, BASED ON PT'S GENERAL POOR HEALTH, GENERALIZED WEAKNESS AND DEMENTIA, AND HER AGE. WOULD LIKE TO KEEP PT HERE, AND PROVIDE COMFORT MEASURES AND IS AGREEABLE TO BLOOD THINNERS. DISCUSSED CODE STATUS AND SHE STATES PT IS TO BE A DNR/DNI. SHE ALSO REPORTS THAT FOR THE LAST 3-4 WEEKS, PT HAS COMPLAINED OF HAVING A HARD TIME BREATHING AND FEELING LIKE SHE HAS A TIGHT BAND AROUND HER WAIST/CHEST AREA. SHE STATES THAT PT'S VITALS AND OXYGEN LEVELS HAD BEEN NORMAL, UNTIL TONIGHT. 230--SPOKE WITH DR. ALAMO, AND SHE ACCEPTS PT FOR ADMIT. WILL DO FULL HEPARIN. Impression Primary Impression: MASSIVE BILATERAL PULMONARY EMBOLI Additional Impressions: Acute respiratory failure with hypoxia Dementia Thyroid mass Saddle pulmonary embolus Disposition: ADMITTED INPATIENT Condition: Stable Admissions Decision to Admit Reason: Admit from ER (General) Decision to Admit/Date: Dec 27, 2020 Time/Decision to Admit Time: 23:05 Departure-Patient Inst. Referrals: GAURAV OMER MD (PCP/Family) Primary Care Physician MELISSA MEDRANO DO Dec 27, 2020 21:00
[2020-12-27 21:01] LABS: FIBRIN DEGRADATION PRODUCTS 3.65 UG/ML (0.00-0.49); INR 1.1 (0.8-1.4); PROTHROMBIN TIME PATIENT 14.5 SEC (12.2-14.7)
[2020-12-27 21:13] LABS: ERYTHROCYTE SEDIMENTATION RATE 7 MM/HR (0-30)
--- NOTE | 2020-12-27 21:22 | Diagnostic Imaging Report ---
Procedure: CT head, face, and cervical spine without contrast. Technique: Multiple contiguous axial images were obtained through the head, neck, and facial bones without the use of intravenous contrast. Sagittal and coronal reformations through the cervical spine and facial bones were also performed. Auto Exposure Controls were utilized during the CT exam to meet ALARA standards for radiation dose reduction. Date: December 27, 2020. Indication: 75-year-old female, fall. Fever and hypoxia. Head, face, neck pain. Comparison: None. Findings: The temporomandibular joints are normally aligned bilaterally. 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 There is chondrocalcinosis. The mandible is intact. There are bilateral mildly displaced nasal bone fractures. There is deviation of the bony nasal septum to the left of midline. There is no additional identified maxillofacial bone fracture. The visualized portions of the paranasal sinuses, mastoid air cells, and middle ears are well aerated. The globes are grossly intact. There is no retro-orbital hematoma. There is soft tissue swelling at the level of the nose. There is no identified skull fracture. There is proportional prominence of the ventricles and additional CSF spaces consistent with mild to moderate cerebral volume loss. There is no abnormal extra-axial fluid collection. There is no evidence of acute intracranial hemorrhage. There is no mass effect or midline shift. There is no identified facet joint subluxation or dislocation. There are multilevel facet degenerative changes of the cervical spine. There is no asymmetric widening of the cervical disc spaces. There are multilevel severe disc degenerative changes of the cervical spine with multilevel posterior disc osteophyte complexes. There is chondrocalcinosis. CT is limited for assessment of disc pathology and evaluation of non-bony causes of pathology in the spinal canal. There is no identified acute fracture of the cervical spine. Very limited visualized portions of the lung apices are grossly clear. There is an incompletely imaged low-attenuation masslike abnormality along the posterior aspect of the left lobe of the thyroid measuring 3.6 x 2.8 cm in axial dimension. There are carotid vascular calcifications. Impression: 1. Mildly displaced bilateral nasal bone fractures. 2. No additional identified maxillofacial bone fracture. 3. No identified acute intracranial abnormality. 4. Mild to moderate cerebral volume loss. 5. No identified acute fracture of the cervical spine. 6. Multilevel extensive disc and facet degenerative changes of the cervical spine. 6. Sizable soft tissue attenuation mass adjacent to the posterior aspect of the left lobe of the thyroid indeterminate and does raise concern for possible malignancy. Complete workup for definitive diagnosis is needed. Dictated by: Dictated on workstation # [id number]
--- NOTE | 2020-12-27 21:39 | Diagnostic Imaging Report ---
PROCEDURE: CT chest, abdomen, and pelvis without contrast. TECHNIQUE: Multiple contiguous axial images were obtained through the chest, abdomen, and pelvis without the use of intravenous contrast. Auto Exposure Controls were utilized during the CT exam to meet ALARA standards for radiation dose reduction. DATE: December 27, 2020. COMPARISON: Chest radiograph December 27, 2020. INDICATION: 75-year-old female, fall. Fever and hypoxia. Back pain. FINDINGS: There are limitations for evaluation of the abdominal organs, neoplastic processes, abscess, and limited evaluation of the vasculature relating to the lack of intravenous contrast. There is a noncalcified right lower lobe pulmonary nodule on axial image 32 measuring 5 mm in size. There is a benign calcified 6 mm left lower lobe granuloma on axial image 31. There are calcified left hilar granulomas. There is no additional focal airspace consolidation. There is no pneumothorax. There is no pleural effusion. The central airways are patent. The heart is not enlarged. There is a partially calcified heterogeneous attenuation mass adjacent to the posterior aspect of the left lobe of the thyroid extending into the superior mediastinum measuring 3.1 x 3.2 cm in axial dimension. There is no otherwise identified mediastinal mass or lymph node. There is no abnormally enlarged axillary lymph node meeting CT size criteria for adenopathy. The liver is unremarkable in size and contour. The gallbladder is unremarkable. There is no identified biliary ductal dilation. The main pancreatic duct is not grossly dilated. Limited noncontrast evaluation of the pancreatic parenchyma is unremarkable. The spleen is not enlarged. The adrenal glands are unremarkable. There is a heterogeneous attenuation left renal lesion with layering high attenuation measuring 2.3 cm in size on axial image 66 which is indeterminate. There are low-attenuation lesions in the region of left renal sinus which likely reflect parapelvic cysts with one example measuring 1.6 cm in size on axial image 62. There are also probable right parapelvic cysts. There is no clear hydronephrosis. There is no identified renal or ureteral stone. There are pelvic calcifications compatible with phleboliths. Urinary bladder is unremarkable. The intestinal tract is not distended. There is no free intraperitoneal air. There is no drainable fluid collection. There is no sizable volume free pelvic fluid. There are atherosclerotic calcifications. There is no identified abnormally enlarged lymph node in the abdomen or pelvis meeting CT size criteria for adenopathy. There are multilevel degenerative changes of the spine. There is no identified acute bony abnormality. IMPRESSION: CT chest, abdomen, and pelvis. 1. Partially calcified heterogeneous attenuation mass adjacent to the posterior aspect of the left lobe of the thyroid extending into the superior mediastinum measuring 3.1 x 3.2 cm in size. Workup for definitive diagnosis is needed. Differential diagnostic considerations would include a primary parathyroid lesion including parathyroid carcinoma as well as a mediastinal mass such as teratoma, lymphoma or a thymic origin neoplasm. 2. No otherwise identified abnormally enlarged lymph node at the level of the chest, abdomen, or pelvis. 3. 5 mm noncalcified lower lobe pulmonary nodule. 4. No identified acute abnormality at the level of the chest, abdomen, or pelvis. Dictated by: Dictated on workstation # [id number]
--- NOTE | 2020-12-27 21:39 | Diagnostic Imaging Report ---
EXAMINATION: Chest radiograph, portable AP view. DATE: December 27, 2020 INDICATION: 75-year-old female, fever and hypoxia. COMPARISON: None. FINDINGS: Heart size and mediastinal contours are unremarkable. No identified pneumothorax, large pleural effusion, or focal airspace consolidation. IMPRESSION: No identified acute cardiopulmonary abnormality. Dictated by: Dictated on workstation # [id number]
[2020-12-27] MEDS ORDERED: LACTATED RINGERS 1,000 ML IV ONE (22:00)
[2020-12-27] MEDS ORDERED: NS 100 ML (IVPB) BAG IV ONE (22:15)
[2020-12-27] MEDS ORDERED: HOLD METFORMIN - RECEIVED CONTRAST 20 ML VIAL IV SCH (22:15)
[2020-12-27] MEDS ORDERED: IOHEXOL 350 MG/ML 100 ML (OMNIPAQUE 350) VIAL IV ONE (22:15)
[2020-12-27] MEDS ORDERED: CATHETER FLUSH 10 ML SYR IV PRN (22:15)
--- NOTE | 2020-12-27 22:36 | Diagnostic Imaging Report ---
PROCEDURE: CT angiography of the chest with contrast. TECHNIQUE: Multiple contiguous axial images were obtained through the chest after uneventful bolus administration of intravenous contrast. 3D reconstructed CTA MIP acquisitions were also performed. Auto Exposure Controls were utilized during the CT exam to meet ALARA standards for radiation dose reduction. DATE: December 27, 2020. COMPARISON: CT chest, abdomen and pelvis December 27, 2020 at 2105 hours. INDICATION: 75-year-old female, shortness of breath. Concern for pulmonary embolus. FINDINGS: There are dependent opacities in the right and left lower lobes most compatible with atelectasis. There is no pneumothorax. There is no pleural effusion. There is embolus bridging across the main pulmonary artery bifurcation extending into left upper lobe, left lower lobe, right lower lobe, right middle lobe, and right upper lobe segmental and subsegmental pulmonary artery branches. The main pulmonary artery diameter measures 2.8 cm which is right at the upper limits of normal. There is no reflux of contrast into hepatic veins. The heart is not enlarged. There is no pericardial effusion. There is no identified abnormally enlarged mediastinal, hilar, or axillary lymph node meeting CT size criteria for adenopathy. There is low-attenuation partially calcified left thyroid nodule measuring 1.6 cm in size. There is a heterogeneous attenuation partially calcified mass adjacent to the posterior aspect of the left lobe of the thyroid extending into the mediastinum measuring 3.7 x 2.8 cm in size. There are left parapelvic cysts and indeterminate left parapelvic lesion with layering internal high attenuation. Impression: 1. Embolus bridging across the main pulmonary artery extending into the right upper lobe, right middle lobe, right lower lobe, left upper lobe, and left lower lobe segmental and subsegmental branches with main pulmonary artery diameter at the upper limits of normal. No reflux of contrast into hepatic veins. 2. Redemonstrated partially calcified gas adjacent to the posterior aspect of the left lobe of the thyroid extending into the superior mediastinum. Workup for definitive diagnosis is needed. 3. Indeterminate 1.6 cm left thyroid nodule. Further evaluation is recommended of this as well. Dictated by: Dictated on workstation # [id number]
[2020-12-27] MEDS ORDERED: HEParin 1000 UNIT/ML (10ML VIAL) FOR BOLUS IV ONE (23:00)
[2020-12-27] MEDS ORDERED: HEParin DRIP 25000 UNIT/500ML 500 ML IV ONE (23:00)
[2020-12-28] MEDS ORDERED: HEParin 1000 UNIT/ML (10ML VIAL) FOR BOLUS IV SCH (00:45)
[2020-12-28] MEDS ORDERED: HEParin DRIP 25000 UNIT/500ML 500 ML IV SCH (00:45)
[2020-12-28] MEDS ORDERED: CATHETER FLUSH 10 ML SYR IV PRN (00:45)
[2020-12-28 01:30] VITALS: BP 122/71
[2020-12-28 04:00] VITALS: BP 101/48
[2020-12-28 05:49] LABS: BASOPHILS # (AUTO) 0.1 10^3/uL (0.0-0.1); BASOPHILS % (AUTO) 1 % (0-10); EOSINOPHILS # (AUTO) 0.2 10^3/uL (0.0-0.3); EOSINOPHILS % (AUTO) 3 % (0-10); HEMATOCRIT 35 % (35-52); HEMOGLOBIN 11.3 g/dL (11.5-16.0); LYMPHOCYTES % (AUTO) 22 % (12-44); MEAN CORPUSCULAR HEMOGLOBIN 31 pg (25-34); MEAN CORPUSCULAR HGB CONC 32 g/dL (32-36); MEAN CORPUSCULAR VOLUME 96 fL (80-99); MEAN PLATELET VOLUME 9.6 fL (9.0-12.2); MONOCYTES # (AUTO) 0.8 10^3/uL (0.0-1.0); MONOCYTES % (AUTO) 9 % (0-12); NEUTROPHILS # (AUTO) 5.8 10^3/uL (1.8-7.8); NEUTROPHILS % (AUTO) 65 % (42-75); PLATELET COUNT 161 10^3/uL (130-400)
[2020-12-28 06:11] LABS: CALCIUM 9.3 MG/DL (8.5-10.1); CREATININE SERUM 0.69 MG/DL (0.60-1.30); POTASSIUM 3.4 MMOL/L (3.6-5.0)
[2020-12-28] MEDS: CATHETER FLUSH 10 ML SYR IV SCH ×3 (06:11→22:14)
[2020-12-28 08:00] VITALS: BP 111/60
[2020-12-28] MEDS ORDERED: QUET50TA PO (09:48)
[2020-12-28] MEDS ORDERED: LACT20SO2 PO (09:48)
[2020-12-28] MEDS ORDERED: NAPR-915 PO (09:48)
[2020-12-28] MEDS ORDERED: ACET-2650 PO (09:48)
[2020-12-28] MEDS ORDERED: POLY17PO6 PO (09:48)
[2020-12-28] MEDS ORDERED: DOCU100C37 PO (09:48)
--- NOTE | 2020-12-28 09:54 | History & Physical ---
DAT PETE 12/28/20 0954: HPI History of Present Illness: Hx limited by dementia 75y/o F with Hx of dementia, schizophrenia/depression, HLD, CVA, and Sz admitted due to SOB and hypoxia. Per ED, pt's sister reported that pt had been complaining of SOB for the past several weeks, but her vital signs were nml until yesterday. EMS reported O2 sat of 78%, improved to 97% on 5L NC. Pt does not remember any of this and denies overt SOB, N/V, fever, CP, or any other associated symptoms, though she does later report her L chest did feel "tight", "like there's a band around my chest". Her only complaint currently is that she recalls that she fell 2-3d ago and hit her face, but was not taken in to be evaluated after the fall. Denies LOC or head pain currently. States that she has a small abrasion to the bridge of her nose where her glasses hit her face. Pt is adament that she does not like [facility] where she came from and wants to go to a facility in [place] instead upon d/c. Exam Limitations: clinical condition (dementia) Date seen by provider: Dec 28, 2020 Time Seen by Provider: 09:00 Attending Physician Gene Alamo MD PCP Gaurav Omer MD Consult Date of Admission Dec 27, 2020 at 23:05 Home Medications Home Medications Reviewed patient Home Medication Reconciliation performed by pharmacy medication reconciliations binder technician and/or nursing. Patients Allergies have been reviewed. 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 Genitourinary: No Gastrointestinal: No Musculoskeletal: No Endocrine: No HEENT: No Cancer: No Psychosocial: Yes Schizophrenia, Depression Integumentary: No Blood Disorders: No Review of Systems ([facility]) Constitutional: No chills, No fever; weakness (generalized) EENTM: no symptoms reported Respiratory: No cough, No hemoptysis, No short of breath Cardiovascular: no symptoms reported Gastrointestinal: No nausea, No vomiting Musculoskeletal: no symptoms reported Skin: other (abrasion to bridge of nose from fall 2-3d ago) Psychiatric/Neurological: Denies Headache, Denies Numbness; Weakness (residual weakness s/p CVA) Reviewed Test Results Reviewed Test Results Lab D-Dimer 3.65 K+ 3.4 Radiology CXR: No identified acute cardiopulmonary abnormality. CT head/cervical/facial bones: 1. Mildly displaced bilateral nasal bone fractures. 2. No additional identified maxillofacial bone fracture. 3. No identified acute intracranial abnormality. 4. Mild to moderate cerebral volume loss. 5. No identified acute fracture of the cervical spine. 6. Multilevel extensive disc and facet degenerative changes of the cervical spine. 6. Sizable soft tissue attenuation mass adjacent to the posterior aspect of the left lobe of the thyroid indeterminate and does raise concern for possible malignancy. Complete workup for definitive diagnosis is needed. CT Chest/A/P: 1. Partially calcified heterogeneous attenuation mass adjacent to the posterior aspect of the left lobe of the thyroid extending into the superior mediastinum measuring 3.1 x 3.2 cm in size. Workup for definitive diagnosis is needed. Differential diagnostic considerations would include a primary parathyroid lesion including parathyroid carcinoma as well as a mediastinal mass such as teratoma, lymphoma or a thymic origin neoplasm. 2. No otherwise identified abnormally enlarged lymph node at the level of the chest, abdomen, or pelvis. 3. 5 mm noncalcified lower lobe pulmonary nodule. 4. No identified acute abnormality at the level of the chest, abdomen, or pelvis. CTA Chest w/ contrast: 1. Embolus bridging across the main pulmonary artery extending into the right upper lobe, right middle lobe, right lower lobe, left upper lobe, and left lower lobe segmental and subsegmental branches with main pulmonary artery diameter at the upper limits of normal. No reflux of contrast into hepatic veins. 2. Redemonstrated partially calcified gas adjacent to the posterior aspect of the left lobe of the thyroid extending into the superior mediastinum. Workup for definitive diagnosis is needed. 3. Indeterminate 1.6 cm left thyroid nodule. Further evaluation is recommended of this as well. Physical Exam-([facility]) Physical Exam Vital Signs VS - Last 72 Hours, by Label 12/27/20 12/27/20 12/28/20 12/28/20 20:00 20:02 00:22 00:47 Temp 36.9 36.9 Pulse 107 68 71 Resp 16 16 B/P (MAP) 120/57 (78) 109/66 Pulse Ox 93 94 O2 Delivery Room Air Nasal Cannula Nasal Cannula O2 Flow Rate 4.00 2.00 12/28/20 12/28/20 12/28/20 12/28/20 01:30 02:06 04:00 05:00 Temp 36.4 Pulse 68 61 Resp 15 14 B/P (MAP) 122/71 (88) 101/48 (65) Pulse Ox 97 100 O2 Delivery Nasal Cannula Nasal Cannula Nasal Cannula Nasal Cannula O2 Flow Rate 3.00 3.00 3.00 3.00 12/28/20 12/28/20 12/28/20 12/28/20 07:00 08:00 09:45 12:00 Temp 36.6 Pulse 75 74 77 Resp 18 B/P (MAP) 111/60 (77) 136/72 (93) Pulse Ox 99 100 O2 Delivery Nasal Cannula Nasal Cannula Nasal Cannula O2 Flow Rate 4.00 4.00 4.00 12/28/20 12/28/20 12/28/20 12/28/20 12:49 13:00 13:06 15:55 Temp 36.2 36.5 Pulse 76 82 Resp 12 B/P (MAP) 122/57 (78) Pulse Ox 98 O2 Delivery Nasal Cannula Nasal Cannula O2 Flow Rate 4.00 4.00 Capillary Refill : Less Than 3 Seconds General Appearance: WD/WN, no apparent distress HEENT: PERRL/EOMI; No scleral icterus (R), No scleral icterus (L); other (no facial deformity noted) Neck: full range of motion, supple, normal inspection, other (no masses palp ated) Respiratory: chest non-tender, lungs clear, normal breath sounds, no respiratory distress, no accessory muscle use, other (4L of O2 NC) Cardiovascular: regular rate, rhythm, no JVD Gastrointestinal: non tender, soft Back: normal inspection Extremities: other (1+ pitting edema to RLE, strength 5/5 to BUE, nml head filter tank tender helper strength, mild swelling to R hand, pt unable to fully extend fingers of R hand or fully flex/extend wrist, passive ROM nml, c/w prior stroke) Neurologic/Psychiatric: no motor/sensory deficits, alert, normal mood/affect; No oriented x 3 (oriented to person and place only); other (poor short-term memory, often repeats statements/questions, termite exterminator helper memory appears intact) Skin: warm/dry, other (abrasion noted to bridge of nose) Assessment/Plan Assessment/Plan Admission Dx PE (1) Saddle pulmonary embolus Status: Acute Assessment & Plan: CTA showing PE Heparin started, consider transition to NOAC O2 sat stable on 4L of O2, continue to monitor, will likely need home O2 upon d/c Encouraged use of IS Qualifiers: Qualified Codes: I26.92 - Saddle embolus of pulmonary artery without acute cor pulmonale (2) Acute respiratory failure with hypoxia Status: Acute Assessment & Plan: 4L O2 NC (3) Thyroid mass Status: Acute Assessment & Plan: Will consult IR for potential biopsy vs outpatient PET scan (4) Dementia Status: Chronic (5) Nasal bones, closed fracture Status: Acute Assessment & Plan: Closed Fx, mininal displacement, will continue to monitor Qualifiers: Qualified Codes: S02.2XXA - Fracture of nasal bones, initial encounter for closed fracture Copy Copies To 1: GAURAV OMER MD,GENE Holm MD 12/28/20 1651: HPI History of Present Illness: Exam Limitations: clinical condition (dementia) Home Medications Allergies Coded Allergies: Penicillins (Verified Allergy, Intermediate, rash, 12/03/18) oseltamivir (Verified Allergy, Intermediate, Vomiting, 12/03/18) GIE-Obkesk-Zdvazv Hx Past Medical History Dementia Hypothyroidism h/o CVA with residual Review of Systems ([facility]) Constitutional: no symptoms reported; No chills, No fever; weakness (generalized) EENTM: no symptoms reported; No mouth pain, No nose congestion Respiratory: no symptoms reported; No cough, No short of breath Cardiovascular: chest pain (chest tightness) Gastrointestinal: no symptoms reported; No abdominal pain, No nausea, No vomiting Genitourinary: no symptoms reported : No Musculoskeletal: no symptoms reported; No back pain, No muscle pain Skin: other (abrasion to bridge of nose from fall 2-3d ago) Psychiatric/Neurological: Weakness (residual weakness s/p CVA) Reviewed Test Results Reviewed Test Results Lab Laboratory Tests Test 12/27/20 20:00 12/27/20 20:12 12/27/20 20:18 12/27/20 22:13 Range/Units White Blood Count 11.7 H 4.3-11.0 10^3/uL Red Blood Count 4.08 3.80-5.11 10^6/uL Hemoglobin 12.4 11.5-16.0 g/dL Hematocrit 38 35-52 % Mean Corpuscular Volume 94 80-99 fL Mean Corpuscular Hemoglobin 30 25-34 pg Mean Corpuscular Hemoglobin Concent 32 32-36 g/dL Red Cell Distribution Width 12.6 10.0-14.5 % Platelet Count 193 130-400 10^3/uL Mean Platelet Volume 10.4 9.0-12.2 fL Immature Granulocyte % (Auto) 0 % Neutrophils (%) (Auto) 76 H 42-75 % Lymphocytes (%) (Auto) 15 12-44 % Monocytes (%) (Auto) 7 0-12 % Eosinophils (%) (Auto) 2 0-10 % Basophils (%) (Auto) 1 0-10 % Neutrophils # (Auto) 8.9 H 1.8-7.8 10^3/uL Lymphocytes # (Auto) 1.8 1.0-4.0 10^3/uL Monocytes # (Auto) 0.8 0.0-1.0 10^3/uL Eosinophils # (Auto) 0.2 0.0-0.3 10^3/uL Basophils # (Auto) 0.1 0.0-0.1 10^3/uL Immature Granulocyte # (Auto) 0.0 0.0-0.1 10^3/uL Erythrocyte Sedimentation Rate 7 0-30 MM/HR Prothrombin Time 14.5 12.2-14.7 SEC INR Comment 1.1 0.8-1.4 Activated Partial Thromboplast Time 27 24-35 SEC D-Dimer 3.65 H 0.00-0.49 UG/ML Sodium Level 143 135-145 MMOL/L Potassium Level 3.5 L 3.6-5.0 MMOL/L Chloride Level 106 98-107 MMOL/L Carbon Dioxide Level 25 21-32 MMOL/L Anion Gap 12 5-14 MMOL/L Blood Urea Nitrogen 17 7-18 MG/DL Creatinine 0.77 0.60-1.30 MG/DL Estimat Glomerular Filtration Rate 73 BUN/Creatinine Ratio 22 Glucose Level 175 H 70-105 MG/DL Lactic Acid Level 2.57 *H 1.81 0.50-2.00 MMOL/L Calcium Level 9.5 8.5-10.1 MG/DL Corrected Calcium 9.8 8.5-10.1 MG/DL Magnesium Level 3.0 H 1.6-2.4 MG/DL Total Bilirubin 0.2 0.1-1.0 MG/DL Aspartate Amino Transf (AST/SGOT) 41 H 5-34 U/L Alanine Aminotransferase (ALT/SGPT) 35 0-55 U/L Alkaline Phosphatase 90 40-136 U/L Lactate Dehydrogenase 317 H 125-220 U/L Total Creatine Kinase 89 29-168 U/L Creatine Kinase MB 5.6 <6.6 NG/ML Myoglobin 56.8 10.0-92.0 NG/ML Troponin I 0.036 H <0.028 NG/ML C-Reactive Protein High Sensitivity 0.68 H 0.00-0.50 MG/DL B-Type Natriuretic Peptide 35.2 <100.0 PG/ML Total Protein 6.2 L 6.4-8.2 GM/DL Albumin 3.6 3.2-4.5 GM/DL Amylase Level 56 25-125 U/L Lipase 7 L 8-78 U/L Procalcitonin 0.04 <0.10 NG/ML TSH Big Bar Testing 1.75 0.35-4.94 UIU/ML Influenza Type A (RT-PCR) Not Detected Not Detecte Influenza Type B (RT-PCR) Not Detected Not Detecte SARS-CoV-2 RNA (RT-PCR) Not Detected Not Detecte Urine Color YELLOW Urine Clarity CLEAR Urine pH 7.0 5-9 Urine Specific [place] 1.020 1.016-1.022 Urine Protein 1+ H NEGATIVE Urine Glucose (UA) TRACE H NEGATIVE Urine Ketones NEGATIVE NEGATIVE Urine Nitrite NEGATIVE NEGATIVE Urine Bilirubin NEGATIVE NEGATIVE Urine Urobilinogen 0.2 < = 1.0 MG/DL Urine Leukocyte Esterase NEGATIVE NEGATIVE Urine RBC (Auto) NEGATIVE NEGATIVE Urine RBC NONE /HPF Urine WBC 0-2 /HPF Urine Squamous Epithelial Cells NONE /HPF Urine Renal Epithelial Cells NONE /HPF Urine Crystals NONE /LPF Urine Bacteria NEGATIVE /HPF Urine Casts NONE /LPF Urine Mucus NEGATIVE /LPF Urine Culture Indicated NO Blood Gas Puncture Site L WRIST Blood Gas Patient Temperature 98.5 Arterial Blood pH 7.44 H 7.37-7.43 Arterial Blood Partial Pressure CO2 41 35-45 MMHG Arterial Blood Partial Pressure O2 81 79-93 MMHG Arterial Blood HCO3 28 H 23-27 MMOL/L Arterial Blood Total CO2 29.1 21.0-31.0 MMOL/L Arterial Blood Oxygen Saturation 96 94-100 % Arterial Blood Base Excess 3.9 H -2.5-2.5 MMOL/L Darius Test YES-POS Blood Gas Ventilator Setting NO Blood Gas Inspired Oxygen 2L Test 12/28/20 05:30 12/28/20 06:27 12/28/20 13:50 Range/Units White Blood Count 9.0 4.3-11.0 10^3/uL Red Blood Count 3.66 L 3.80-5.11 10^6/uL Hemoglobin 11.3 L 11.5-16.0 g/dL Hematocrit 35 35-52 % Mean Corpuscular Volume 96 80-99 fL Mean Corpuscular Hemoglobin 31 25-34 pg Mean Corpuscular Hemoglobin Concent 32 32-36 g/dL Red Cell Distribution Width 12.8 10.0-14.5 % Platelet Count 161 130-400 10^3/uL Mean Platelet Volume 9.6 9.0-12.2 fL Immature Granulocyte % (Auto) 0 % Neutrophils (%) (Auto) 65 42-75 % Lymphocytes (%) (Auto) 22 12-44 % Monocytes (%) (Auto) 9 0-12 % Eosinophils (%) (Auto) 3 0-10 % Basophils (%) (Auto) 1 0-10 % Neutrophils # (Auto) 5.8 1.8-7.8 10^3/uL Lymphocytes # (Auto) 2.0 1.0-4.0 10^3/uL Monocytes # (Auto) 0.8 0.0-1.0 10^3/uL Eosinophils # (Auto) 0.2 0.0-0.3 10^3/uL Basophils # (Auto) 0.1 0.0-0.1 10^3/uL Immature Granulocyte # (Auto) 0.0 0.0-0.1 10^3/uL Sodium Level 144 135-145 MMOL/L Potassium Level 3.4 L 3.6-5.0 MMOL/L Chloride Level 107 98-107 MMOL/L Carbon Dioxide Level 29 21-32 MMOL/L Anion Gap 8 5-14 MMOL/L Blood Urea Nitrogen 17 7-18 MG/DL Creatinine 0.69 0.60-1.30 MG/DL Estimat Glomerular Filtration Rate 83 BUN/Creatinine Ratio 25 Glucose Level 145 H 70-105 MG/DL Calcium Level 9.3 8.5-10.1 MG/DL Activated Partial Thromboplast Time 160 *H 75 H 24-35 SEC Physical Exam-([facility]) Physical Exam General Appearance: WD/WN, no apparent distress HEENT: PERRL/EOMI, other (no facial deformity noted) Neck: non-tender, full range of motion, supple; No thyromegaly Respiratory: chest non-tender, lungs clear, normal breath sounds, no respiratory distress, no accessory muscle use Cardiovascular: normal peripheral pulses, regular rate, rhythm, no murmur Gastrointestinal: normal bowel sounds, non tender, soft Back: no CVA tenderness, no vertebral tenderness Extremities: normal range of motion, non-tender, normal inspection, no pedal edema, no calf tenderness, normal capillary refill Neurologic/Psychiatric: no motor/sensory deficits, alert, normal mood/affect, o ther (poor short-term memory, often repeats statements/questions, residential memory appears intact) Skin: normal color, warm/dry Lymphatic: no adenopathy Assessment/Plan Assessment/Plan Admission Status: Inpatient Order (span 2 midnights) Reason for Inpatient Admission: Will need close monitoring while transitioning blood thinner (1) Saddle pulmonary embolus Status: Acute Assessment & Plan: CTA showing PE Heparin started, consider transition to NOAC O2 sat stable on 4L of O2, continue to monitor, will likely need home O2 upon d/c Encouraged use of IS 12/27: Large Saddle PE, Patient on heparin Drip will transition to Eliquis, New oxygen requirement at this time Qualifiers: Qualified Codes: I26.92 - Saddle embolus of pulmonary artery without acute cor pulmonale (2) Acute respiratory failure with hypoxia Status: Acute Assessment & Plan: 4L O2 NC (3) Thyroid mass Status: Acute Assessment & Plan: Will consult IR for potential biopsy vs outpatient PET scan 12/28: Outpatient workup: will need Biopsy and PET scan for staging in mass is cancer (4) Dementia Status: Chronic (5) Nasal bones, closed fracture Status: Acute Assessment & Plan: Closed Fx, mininal displacement, will continue to monitor Qualifiers: Qualified Codes: S02.2XXA - Fracture of nasal bones, initial encounter for closed fracture Copy Copies To 1: GAURAV OMER MD Supervisory-Addendum Brief Verification & Attestation Participated in pt care: history, physical Personally performed: exam, history Care discussed with: Medical Student Procedures: n/a Verification and Attestation of Medical Student E/M Service A medical student performed and documented this service in my presence. I re viewed and verified all information documented by the medical student and made modifications to such information, when appropriate. I personally performed the physical exam and medical decision making. Gene Alamo, Dec 28, 2020,16:52 See my plan in italics DAT PETE Dec 28, 2020 09:54 GENE ALAMO MD Dec 28, 2020 16:51
[2020-12-28 12:00] VITALS: BP 136/72
[2020-12-28 15:55] VITALS: BP 122/57
[2020-12-28] MEDS: QUEtiapine 25 MG (SEROquel) TAB IMMEDIATE RELEASE PO SCH (17:37)
[2020-12-28] MEDS: PHENYTOIN 100 MG (DILANTIN) CAP PO SCH (17:37)
[2020-12-28 19:59] VITALS: BP 115/61
[2020-12-29 04:00] VITALS: BP 106/53
[2020-12-29 06:05] LABS: BASOPHILS # (AUTO) 0.1 10^3/uL (0.0-0.1); BASOPHILS % (AUTO) 1 % (0-10); EOSINOPHILS # (AUTO) 0.3 10^3/uL (0.0-0.3); EOSINOPHILS % (AUTO) 4 % (0-10); HEMATOCRIT 35 % (35-52); HEMOGLOBIN 10.9 g/dL (11.5-16.0); LYMPHOCYTES # (AUTO) 1.8 10^3/uL (1.0-4.0); LYMPHOCYTES % (AUTO) 28 % (12-44); MEAN CORPUSCULAR HEMOGLOBIN 31 pg (25-34); MEAN CORPUSCULAR HGB CONC 31 g/dL (32-36); MEAN CORPUSCULAR VOLUME 98 fL (80-99); MEAN PLATELET VOLUME 9.9 fL (9.0-12.2); MONOCYTES # (AUTO) 0.6 10^3/uL (0.0-1.0); MONOCYTES % (AUTO) 9 % (0-12); NEUTROPHILS # (AUTO) 3.7 10^3/uL (1.8-7.8); NEUTROPHILS % (AUTO) 58 % (42-75); PLATELET COUNT 146 10^3/uL (130-400); WHITE BLOOD COUNT 6.5 10^3/uL (4.3-11.0)
[2020-12-29 06:20] LABS: POTASSIUM 3.8 MMOL/L (3.6-5.0)
[2020-12-29 06:21] LABS: CALCIUM 9.3 MG/DL (8.5-10.1)
[2020-12-29 06:22] LABS: TOTAL PROTEIN 5.3 GM/DL (6.4-8.2)
[2020-12-29 06:24] LABS: BILIRUBIN,TOTAL 0.2 MG/DL (0.1-1.0)
[2020-12-29 06:26] LABS: CREATININE SERUM 0.74 MG/DL (0.60-1.30)
[2020-12-29] MEDS: CATHETER FLUSH 10 ML SYR IV SCH ×3 (06:27→20:25)
[2020-12-29 07:24] VITALS: BP 119/70
[2020-12-29] MEDS: LACTULOSE SYRUP 10GM/15ML (ENULOSE) 30ML UDC PO SCH (08:11)
[2020-12-29] MEDS: LEVOTHYROXINE 50 MCG (LEVOTHROID) TAB PO SCH (08:11)
--- NOTE | 2020-12-29 08:39 | Progress Note ---
Subjective Subjective/Events-last exam NAEO. Pt feeling ok, but a bit more confused per nursing. States she doesn't feel much different from yesterday, but is complaining about people not letting her get up from bed. States she didn't know why she was being kept in bed or why she was being given meds, sometimes will remember that she has a blood clot, but quickly forgets again. Pt reports some nasal congestion, but no new CP or other complaints at this time. Pt has been using her IS a little, encouraged her to use it more often. Review of Systems General: No Night Sweats; Other (generalized weakness) HEENT: No Visual Changes; Sinus Congestion Pulmonary: No Cough Cardiovascular: No: Chest Pain Gastrointestinal: No: Nausea, Vomiting Neurological: Weakness (residual from CVA); No: Seizures Focused Exam Lactate Level 12/27/20 20:00: Lactic Acid Level 2.57*H 12/27/20 22:13: Lactic Acid Level 1.81 Objective Exam Last Set of Vital Signs Vital Signs Date Time Temp Pulse Resp B/P (MAP) Pulse Ox O2 Delivery O2 Flow Rate FiO2 12/29/20 07:47 Nasal Cannula 2.00 12/29/20 07:24 36.2 71 14 119/70 (86) 98 Capillary Refill : Less Than 3 Seconds I&O Intake and Output 12/29/20 00:00 Intake Total 1680 ml Output Total 650 ml Balance 1030 ml Intake Oral 1180 ml IV Total 500 ml Output Urine Total 650 ml # Voids 2 Daily Weight Change Unsure General: Alert, No Acute Distress, Other (oriented to person) HEENT: PERRLA, EOMI Neck: Supple, No JVD Lungs: Clear to Auscultation, Normal Air Movement Heart: Regular Rate, Normal S1, Normal S2 Abdomen: Soft Skin: No Rashes, No Breakdown Neuro: Normal Speech, Sensation Intact Psych/Mental Status: Other (more irritable today) Results/Procedures Lab Laboratory Tests 12/28/20 13:50: Activated Partial Thromboplast Time 75H 12/28/20 19:40: Activated Partial Thromboplast Time 71H 12/29/20 05:50: Activated Partial Thromboplast Time 82H, White Blood Count 6.5, Red Blood Count 3.56L, Hemoglobin 10.9L, Hematocrit 35, Mean Corpuscular Volume 98, Mean Corpuscular Hemoglobin 31, Mean Corpuscular Hemoglobin Concent 31L, Red Cell Distribution Width 12.9, Platelet Count 146, Mean Platelet Volume 9.9, Immature Granulocyte % (Auto) 1, Neutrophils (%) (Auto) 58, Lymphocytes (%) (Auto) 28, Monocytes (%) (Auto) 9, Eosinophils (%) (Auto) 4, Basophils (%) (Auto) 1, Neutr ophils # (Auto) 3.7, Lymphocytes # (Auto) 1.8, Monocytes # (Auto) 0.6, Eosinophils # (Auto) 0.3, Basophils # (Auto) 0.1, Immature Granulocyte # (Auto) 0.0, Sodium Level 142, Potassium Level 3.8, Chloride Level 107, Carbon Dioxide Level 27, Anion Gap 8, Blood Urea Nitrogen 25H, Creatinine 0.74, Estimat Glomerular Filtration Rate 77, BUN/Creatinine Ratio 34, Glucose Level 148H, Calcium Level 9.3, Corrected Calcium 10.1, Total Bilirubin 0.2, Aspartate Amino Transf (AST/SGOT) 16, Alanine Aminotransferase (ALT/SGPT) 22, Alkaline Phosphatase 73, Total Protein 5.3L, Albumin 3.0L Microbiology 12/27/20 Blood Culture - Preliminary, Resulted No growth Radiology CXR: No identified acute cardiopulmonary abnormality. CT head/cervical/facial bones: 1. Mildly displaced bilateral nasal bone fractures. 2. No additional identified maxillofacial bone fracture. 3. No identified acute intracranial abnormality. 4. Mild to moderate cerebral volume loss. 5. No identified acute fracture of the cervical spine. 6. Multilevel extensive disc and facet degenerative changes of the cervical spine. 6. Sizable soft tissue attenuation mass adjacent to the posterior aspect of the left lobe of the thyroid indeterminate and does raise concern for possible malignancy. Complete workup for definitive diagnosis is needed. CT Chest/A/P: 1. Partially calcified heterogeneous attenuation mass adjacent to the posterior aspect of the left lobe of the thyroid extending into the superior mediastinum measuring 3.1 x 3.2 cm in size. Workup for definitive diagnosis is needed. Differential diagnostic considerations would include a primary parathyroid lesion including parathyroid carcinoma as well as a mediastinal mass such as teratoma, lymphoma or a thymic origin neoplasm. 2. No otherwise identified abnormally enlarged lymph node at the level of the chest, abdomen, or pelvis. 3. 5 mm noncalcified lower lobe pulmonary nodule. 4. No identified acute abnormality at the level of the chest, abdomen, or pelvis. CTA Chest w/ contrast: 1. Embolus bridging across the main pulmonary artery extending into the right upper lobe, right middle lobe, right lower lobe, left upper lobe, and left lower lobe segmental and subsegmental branches with main pulmonary artery diameter at the upper limits of normal. No reflux of contrast into hepatic veins. 2. Redemonstrated partially calcified gas adjacent to the posterior aspect of the left lobe of the thyroid extending into the superior mediastinum. Workup for definitive diagnosis is needed. 3. Indeterminate 1.6 cm left thyroid nodule. Further evaluation is recommended of this as well. BLE doppler US: Nearly occlusive DVTs, bilateral popliteal veins and posterior tibial veins. Assessment/Plan Assessment/Plan Assessment & Plan Pt refuses to return to [facility], discussed with social work and waiting for placement in a facility in [place]. (1) Saddle pulmonary embolus Status: Acute Assessment & Plan: CTA showing PE Heparin started, consider transition to NOAC O2 sat stable on 4L of O2, continue to monitor, will likely need home O2 upon d/c Encouraged use of IS 12/27: Large Saddle PE, Patient on heparin Drip will transition to Eliquis, New oxygen requirement at this time Qualifiers: Qualified Codes: I26.92 - Saddle embolus of pulmonary artery without acute cor pulmonale (2) DVT (deep venous thrombosis) Status: Acute Assessment & Plan: US showed: Nearly occlusive DVTs, bilateral popliteal veins and posterior tibial veins. Continue with anticoagulation Tx Qualifiers: Qualified Codes: I82.433 - Acute embolism and thrombosis of popliteal vein, bilateral (3) Acute respiratory failure with hypoxia Status: Acute Assessment & Plan: 4L O2 NC (4) Thyroid mass Status: Acute Assessment & Plan: Will consult IR for potential biopsy vs outpatient PET scan 12/28: Outpatient workup: will need Biopsy and PET scan for staging in mass is cancer (5) Dementia Status: Chronic (6) Nasal bones, closed fracture Status: Acute Assessment & Plan: Closed Fx, mininal displacement, will continue to monitor Qualifiers: Qualified Codes: S02.2XXA - Fracture of nasal bones, initial encounter for closed fracture JUAN RDAT Dec 29, 2020 08:39
--- NOTE | 2020-12-29 09:20 | Diagnostic Imaging Report ---
PROCEDURE: US Venous Lower Ext Jun[place]. TECHNIQUE: Multiple real-time grayscale images were obtained over the lower extremities in various projections, bilaterally. Additional duplex Doppler and color Doppler images were also obtained. INDICATION: Pulmonary embolism with lower extremity swelling. Both common femoral and superficial femoral veins are widely patent. There is nearly occlusive thrombus noted in the right and left popliteal veins as well as right and left posterior tibial veins. No fluid collection or masses are seen. IMPRESSION: Nearly occlusive DVTs, bilateral popliteal veins and posterior tibial veins. Dictated by: Dictated on workstation # [id number]
[2020-12-29 12:00] VITALS: BP 113/57
[2020-12-29 12:19] VITALS: BP 113/57
[2020-12-29 16:35] VITALS: BP 113/59
[2020-12-29] MEDS: APIXABAN 5 MG (ELIQUIS) TABLET PO SCH ×2 (16:55→20:25)
[2020-12-29] MEDS: QUEtiapine 25 MG (SEROquel) TAB IMMEDIATE RELEASE PO SCH (16:56)
[2020-12-29] MEDS: PHENYTOIN 100 MG (DILANTIN) CAP PO SCH (16:56)
[2020-12-29 20:53] VITALS: BP 124/59
[2020-12-29] MEDS ORDERED: polyethylene glycoL POWDER 17 GM (MIRALAX) PACK PO PRN (21:15)
[2020-12-30] VITALS (7 sets, daily range): BP systolic 104–129; BP diastolic 53–77
[2020-12-30 05:45] LABS: BASOPHILS # (AUTO) 0.1 10^3/uL (0.0-0.1); BASOPHILS % (AUTO) 0 % (0-10); EOSINOPHILS # (AUTO) 0.3 10^3/uL (0.0-0.3); EOSINOPHILS % (AUTO) 2 % (0-10); HEMATOCRIT 35 % (35-52); LYMPHOCYTES # (AUTO) 1.4 10^3/uL (1.0-4.0); LYMPHOCYTES % (AUTO) 13 % (12-44); MEAN CORPUSCULAR HEMOGLOBIN 31 pg (25-34); MEAN CORPUSCULAR HGB CONC 32 g/dL (32-36); MEAN CORPUSCULAR VOLUME 97 fL (80-99); MEAN PLATELET VOLUME 9.5 fL (9.0-12.2); MONOCYTES # (AUTO) 0.8 10^3/uL (0.0-1.0); MONOCYTES % (AUTO) 7 % (0-12); NEUTROPHILS # (AUTO) 8.7 10^3/uL (1.8-7.8); NEUTROPHILS % (AUTO) 77 % (42-75); PLATELET COUNT 150 10^3/uL (130-400); WHITE BLOOD COUNT 11.3 10^3/uL (4.3-11.0)
[2020-12-30] MEDS: CATHETER FLUSH 10 ML SYR IV SCH ×3 (06:00→20:04)
[2020-12-30 06:05] LABS: ALBUMIN 3.1 GM/DL (3.2-4.5); POTASSIUM 3.9 MMOL/L (3.6-5.0)
[2020-12-30 06:06] LABS: CALCIUM 9.1 MG/DL (8.5-10.1)
[2020-12-30 06:07] LABS: TOTAL PROTEIN 5.4 GM/DL (6.4-8.2)
[2020-12-30 06:09] LABS: BILIRUBIN,TOTAL 0.3 MG/DL (0.1-1.0)
[2020-12-30 06:11] LABS: CREATININE SERUM 0.6 MG/DL (0.60-1.30)
--- NOTE | 2020-12-30 07:39 | Progress Note - Hospitalist ---
Subjective HPI/CC On Admission Date Seen by Provider: Dec 30, 2020 Time Seen by Provider: 10:00 Subjective/Events-last exam Patient doing really well Sister at the bedside Dementia is significant I know her from [facility] in [place] Check meds and labs Moving to fourth floor Feels like she is less short of breath PT and OT will be ordered Will be going to [facility] on Friday if it is arranged Review of Systems General: Fatigue Pulmonary: Dyspnea Focused Exam Lactate Level 12/27/20 22:13: Lactic Acid Level 1.81 Objective Exam Vital Signs Vital Signs Date Time Temp Pulse Resp B/P (MAP) Pulse Ox O2 Delivery O2 Flow Rate FiO2 12/30/20 20:38 37.1 75 20 114/53 (73) 94 Room Air 12/30/20 13:00 2.00 Capillary Refill : Less Than 3 Seconds General Appearance: No Apparent Distress, WD/WN, Chronically ill Respiratory: No Accessory Muscle Use, Decreased Breath Sounds Cardiovascular: Regular Rate, Rhythm Neurologic/Psychiatric: Alert, Oriented x3, Disoriented Results/Procedures Lab Laboratory Tests 12/30/20 05:30 Patient resulted labs reviewed. Assessment/Plan Assessment and Plan Assess & Plan/Chief Complaint Assessment: Saddle pulmonary embolism status post heparin drip now oral anticoagulant Acute hypoxic respiratory failure requiring new onset oxygen dependence Dementia Thyroid mass Debility Plan: Supportive care Oxygen Eliquis PT and OT SERGEY RIZO DO Dec 30, 2020 07:39
[2020-12-30] MEDS: APIXABAN 5 MG (ELIQUIS) TABLET PO SCH ×2 (07:46→20:03)
[2020-12-30] MEDS: DOCUSATE SODIUM 100 MG (COLACE) CAP PO SCH ×2 (07:47→20:03)
[2020-12-30] MEDS: LACTULOSE SYRUP 10GM/15ML (ENULOSE) 30ML UDC PO SCH (07:47)
[2020-12-30] MEDS: LEVOTHYROXINE 50 MCG (LEVOTHROID) TAB PO SCH (07:54)
--- NOTE | 2020-12-30 08:36 | Diagnostic Imaging Report ---
. EXAMINATION: Chest radiograph, portable AP view. DATE: 12/30/2020 4:09 AM INDICATION: 75-year-old female, shortness of breath. COMPARISON: December 27, 2020. FINDINGS: Heart size and mediastinal contours are unchanged. There is no identified pneumothorax. There is no large pleural effusion. There is no identified focal airspace consolidation. IMPRESSION: No identified acute cardiopulmonary abnormality. Dictated by: Dictated on workstation # [id number]
--- NOTE | 2020-12-30 12:20 | Physical Therapy Evaluation ---
PT Evaluation-General Medical Diagnosis Admission Date Dec 27, 2020 at 23:05 Medical Diagnosis: (B) Pumonary embolism Onset Date: Dec 27, 2020 Therapy Diagnosis Therapy Diagnosis: Debility/weakness Height/Weight Height (Feet): 5 Height (Inches): 1.00 Weight (Pounds): 160 Precautions Precautions/Isolations: Fall Prevention, Standard Precautions, Pressure Ulcer Weight Bear Status Right Lower Extremity: Right Weight Bearing/Tolerated Left Lower Extremity: Left Weight Bearing/Tolerated Referral Physician: Rhiannon Reason for Referral: Evaluation/Treatment Medical History Pertinent Medical History: CVA, Dementia Current History ED via EMS secondary to chest pain, SOB, hypoxia Social History Home: Assisted Living Prior Prior Level of Function SCALE: Activities may be completed with or without assistive devices. 5-Iasoeiduhu-pxsfgvp completes the activity by him/herself with no assistance from a helper. 5-Set-up or Clean-up Assistance-helper sets up or cleans up; patient completes activity. [place] assists only prior to or following the activity. 4-Supervision or Touching Assistance-helper provides verbal cues and/or touching/steadying and/or contact guard assistance as patient completes activity. Assistance may be provided throughout the activity or intermittently. 3-Partial/Moderate Assistance-helper does LESS THAN HALF the effort. [place] lifts, holds or supports trunk or limbs, but provides less than half the effort. 2-Substantial/Maximal Assistance-helper does MORE THAN HALF the effort. [place] lifts or holds trunk or limbs and provides more than half the effort. 8-Wfofeqkzq-vdqqtz does ALL the effort. Patient does none of the effort to complete the activity. Or, the assistance of 2 or more helpers is required for the patient to complete the activity. If activity was not attempted, code reason: 7-Patient Refused. 9-Not Applicable-not attempted and the patient did not perform the activity before the current illness, exacerbation or injury. 10-Not Attempted due to Environmental Limitations-(lack of equipment, weather restraints, etc.). 88-Not Attempted due to Medical Conditions or Safety Concerns. Pt had CVA 3 months ago, and since then has not been ambulatory, using [facility] for mobility. Receives assistance with all ADLs at [facility]. Prior to CVA, was (I) PT Evaluation-Current Subjective Supine in bed upon arrival, agreeable to PT evaluation. Sister present at bedside Objective Patient Orientation: Person, Place ROM/Strength ROM Lower Extremities Grossly WFL Strength Lower Extremities RLE <3/5 functional strength, LLE 3+/5 with MMT Integumentary/Posture Integumentary refer to nursing notes Bladder Incontinence: No Neuromuscular (Tone, Coordination, Reflexes) grossly intact Sensory Vision: Wears Glasses Hearing: Functional Hand Dominance: Right Transfers Roll Left to Right (QC): 3 Sit to Lying (QC): 3 Lying to Sitting/Side of Bed(Q: 3 Only bed mobility completed this date, pt requires mod A for all bed mobility, especially with RLE Assessment/Needs Pt with decreased strength, balance, functional mobility and activity tolerance. Would benefit from skilled PT to address above mentioned limitations and ensure safety upon DC from hospital Rehab Potential: Fair PT Him Director Goals Him Director Goals PT Him Director Goals Time Frame: Jan 13, 2021 Roll Left & Right (QC): 4 Sit to Lying (QC): 4 Lying-Sitting on Side/Bed(QC): 4 Sit to Stand (QC): 4 Chair/Nur-bn-Zgkvu Xfer(QC): 4 Walk 10 feet (QC): 3 Walk 50ft with 2 Turns (QC): 3 Walk 150 ft (QC): 3 PT Plan Problem List Problem List: Activity Tolerance, Functional Strength, Safety, Balance, Gait, Transfer, Bed Mobility, ROM Treatment/Plan Treatment Plan: Continue Plan of Care Treatment Plan: Bed Mobility, Education, Functional Activity Elliott, Functional Strength, Gait, Safety, Therapeutic Exercise, Transfers Treatment Duration: Jan 13, 2021 Frequency: 6 times per week Estimated Hrs Per Day: .25 hour per day Patient and/or Family Agrees t: Yes Time/GCodes Time In: 1140 Time Out: 1155 Total Billed Treatment 1 visit [facility] (15') TIAN ABAD PT Dec 30, 2020 12:20
[2020-12-30] MEDS: PHENYTOIN 100 MG (DILANTIN) CAP PO SCH (17:39)
[2020-12-30] MEDS: QUEtiapine 25 MG (SEROquel) TAB IMMEDIATE RELEASE PO SCH (17:42)
[2020-12-31 03:22] VITALS: BP 149/79
[2020-12-31] MEDS: CATHETER FLUSH 10 ML SYR IV SCH ×3 (07:17→22:11)
[2020-12-31 08:00] VITALS: BP 131/61
--- NOTE | 2020-12-31 08:18 | Progress Note - Hospitalist ---
Subjective HPI/CC On Admission Date Seen by Provider: Dec 31, 2020 Time Seen by Provider: 11:30 Subjective/Events-last exam No major issues today Was confused and refused to have lab draw her labs but she is willing now Sister at the bedside Confusion noted and she does not note she is confused I recall managing her at the senior behavioral unit in [place] due to dementia related issues Check meds and labs PT and OT Review of Systems General: Fatigue, Malaise Neurological: Confusion Objective Exam Vital Signs Vital Signs Date Time Temp Pulse Resp B/P (MAP) Pulse Ox O2 Delivery O2 Flow Rate FiO2 01/01/21 04:25 36.1 79 18 128/67 (87) 98 Room Air 12/30/20 13:00 2.00 Capillary Refill : Less Than 3 Seconds General Appearance: No Apparent Distress, WD/WN, Chronically ill Respiratory: Lungs Clear, Normal Breath Sounds Cardiovascular: Regular Rate, Rhythm Neurologic/Psychiatric: Alert, Oriented x3, Disoriented Results/Procedures Lab Laboratory Tests 12/31/20 13:20 01/01/21 04:40 Patient resulted labs reviewed. Assessment/Plan Assessment and Plan Assess & Plan/Chief Complaint Assessment: Saddle pulmonary embolism status post heparin drip now oral anticoagulant Acute hypoxic respiratory failure requiring new onset oxygen dependence Dementia Thyroid mass Debility Plan: Supportive care Oxygen Eliquis PT and OT 12/31/2020: Supportive care PT and OT Confusion noted Check labs SERGEY RIZO DO Dec 31, 2020 08:18
[2020-12-31] MEDS: LEVOTHYROXINE 50 MCG (LEVOTHROID) TAB PO SCH (09:09)
[2020-12-31] MEDS: DOCUSATE SODIUM 100 MG (COLACE) CAP PO SCH ×2 (09:09→21:18)
[2020-12-31] MEDS: APIXABAN 5 MG (ELIQUIS) TABLET PO SCH ×2 (09:10→21:18)
[2020-12-31] MEDS: LACTULOSE SYRUP 10GM/15ML (ENULOSE) 30ML UDC PO SCH (09:10)
[2020-12-31 12:00] VITALS: BP 125/58
[2020-12-31 13:29] LABS: BASOPHILS % (AUTO) 0 % (0-10); EOSINOPHILS # (AUTO) 0.1 10^3/uL (0.0-0.3); EOSINOPHILS % (AUTO) 1 % (0-10); HEMATOCRIT 39 % (35-52); HEMOGLOBIN 12.6 g/dL (11.5-16.0); LYMPHOCYTES # (AUTO) 1.1 10^3/uL (1.0-4.0); LYMPHOCYTES % (AUTO) 9 % (12-44); MEAN CORPUSCULAR HEMOGLOBIN 31 pg (25-34); MEAN CORPUSCULAR HGB CONC 33 g/dL (32-36); MEAN CORPUSCULAR VOLUME 95 fL (80-99); MEAN PLATELET VOLUME 9.4 fL (9.0-12.2); MONOCYTES # (AUTO) 0.9 10^3/uL (0.0-1.0); MONOCYTES % (AUTO) 8 % (0-12); NEUTROPHILS % (AUTO) 82 % (42-75); PLATELET COUNT 183 10^3/uL (130-400); WHITE BLOOD COUNT 12.3 10^3/uL (4.3-11.0)
[2020-12-31 13:39] LABS: ALBUMIN 3.5 GM/DL (3.2-4.5); POTASSIUM 3.8 MMOL/L (3.6-5.0)
[2020-12-31 13:41] LABS: CALCIUM 9.5 MG/DL (8.5-10.1)
[2020-12-31 13:42] LABS: TOTAL PROTEIN 6.4 GM/DL (6.4-8.2)
[2020-12-31 13:44] LABS: BILIRUBIN,TOTAL 0.4 MG/DL (0.1-1.0)
[2020-12-31 13:45] LABS: CREATININE SERUM 0.77 MG/DL (0.60-1.30)
[2020-12-31 15:35] VITALS: BP 105/51
[2020-12-31] MEDS: QUEtiapine 25 MG (SEROquel) TAB IMMEDIATE RELEASE PO SCH (17:19)
[2020-12-31] MEDS: PHENYTOIN 100 MG (DILANTIN) CAP PO SCH (17:19)
[2020-12-31 19:17] VITALS: BP 107/61
[2020-12-31 23:47] VITALS: BP 129/68
[2021-01-01 04:25] VITALS: BP 128/67
[2021-01-01 04:53] LABS: BASOPHILS # (AUTO) 0.1 10^3/uL (0.0-0.1); BASOPHILS % (AUTO) 0 % (0-10); EOSINOPHILS # (AUTO) 0.2 10^3/uL (0.0-0.3); EOSINOPHILS % (AUTO) 2 % (0-10); HEMATOCRIT 36 % (35-52); HEMOGLOBIN 11.4 g/dL (11.5-16.0); LYMPHOCYTES # (AUTO) 2.2 10^3/uL (1.0-4.0); LYMPHOCYTES % (AUTO) 19 % (12-44); MEAN CORPUSCULAR HEMOGLOBIN 31 pg (25-34); MEAN CORPUSCULAR HGB CONC 32 g/dL (32-36); MEAN CORPUSCULAR VOLUME 95 fL (80-99); MEAN PLATELET VOLUME 9.7 fL (9.0-12.2); MONOCYTES # (AUTO) 1.1 10^3/uL (0.0-1.0); MONOCYTES % (AUTO) 10 % (0-12); NEUTROPHILS # (AUTO) 7.8 10^3/uL (1.8-7.8); NEUTROPHILS % (AUTO) 68 % (42-75); PLATELET COUNT 181 10^3/uL (130-400); WHITE BLOOD COUNT 11.4 10^3/uL (4.3-11.0)
[2021-01-01 05:06] LABS: ALBUMIN 3.2 GM/DL (3.2-4.5); POTASSIUM 4.1 MMOL/L (3.6-5.0)
[2021-01-01 05:07] LABS: CALCIUM 9.4 MG/DL (8.5-10.1)
[2021-01-01 05:09] LABS: TOTAL PROTEIN 5.9 GM/DL (6.4-8.2)
[2021-01-01 05:10] LABS: BILIRUBIN,TOTAL 0.4 MG/DL (0.1-1.0)
[2021-01-01 05:12] LABS: CREATININE SERUM 0.7 MG/DL (0.60-1.30)
[2021-01-01] MEDS: CATHETER FLUSH 10 ML SYR IV SCH ×3 (06:32→20:06)
--- NOTE | 2021-01-01 07:10 | Progress Note - Hospitalist ---
Subjective HPI/CC On Admission Date Seen by Provider: Jan 01, 2021 Time Seen by Provider: 12:00 Subjective/Events-last exam Patient much better No confusion Labs reviewed Check meds and labs No pain PT and OT working with her Spike Tse will evaluate her candidacy for admittance to their facility Review of Systems General: Fatigue, Malaise Neurological: Confusion Objective Exam Vital Signs Vital Signs Date Time Temp Pulse Resp B/P (MAP) Pulse Ox O2 Delivery O2 Flow Rate FiO2 01/01/21 15:44 37.0 86 20 127/70 (89) 98 Room Air 12/30/20 13:00 2.00 Capillary Refill : Less Than 3 Seconds General Appearance: No Apparent Distress, WD/WN, Chronically ill Respiratory: Lungs Clear, Normal Breath Sounds Cardiovascular: Regular Rate, Rhythm Neurologic/Psychiatric: Alert, Oriented x3, Disoriented Results/Procedures Lab Laboratory Tests 01/01/21 04:40 Patient resulted labs reviewed. Assessment/Plan Assessment and Plan Assess & Plan/Chief Complaint Assessment: Saddle pulmonary embolism status post heparin drip now oral anticoagulant Acute hypoxic respiratory failure requiring new onset oxygen dependence Dementia Thyroid mass Debility Plan: Supportive care Oxygen Eliquis PT and OT 12/31/2020: Supportive care PT and OT Confusion noted Check labs 01/01/2021: Supportive care PT and OT Anticoagulation SERGEY RIZO DO Jan 01, 2021 07:10
[2021-01-01] MEDS ORDERED: ACETAMINOPHEN 325 MG TABLET PO PRN (07:30)
[2021-01-01 08:04] VITALS: BP 132/66
[2021-01-01] MEDS: LACTULOSE SYRUP 10GM/15ML (ENULOSE) 30ML UDC PO SCH (09:26)
[2021-01-01] MEDS: APIXABAN 5 MG (ELIQUIS) TABLET PO SCH ×2 (09:27→20:06)
[2021-01-01] MEDS: LEVOTHYROXINE 50 MCG (LEVOTHROID) TAB PO SCH (09:27)
[2021-01-01] MEDS: DOCUSATE SODIUM 100 MG (COLACE) CAP PO SCH ×2 (09:27→20:05)
--- NOTE | 2021-01-01 11:35 | Physical Therapy Daily Note ---
PT Daily Note-Current Subjective Pt. up in chair, just finished breakfast, agrees to therapy. Mental Status Patient Orientation: Person Transfers SCALE: Activities may be completed with or without assistive devices. 4-Nbkxrphygl-kwddscc completes the activity by him/herself with no assistance from a helper. 5-Set-up or Clean-up Assistance-helper sets up or cleans up; patient completes activity. [place] assists only prior to or following the activity. 4-Supervision or Touching Assistance-helper provides verbal cues and/or touchin g/steadying and/or contact guard assistance as patient completes activity. Assistance may be provided throughout the activity or intermittently. 3-Partial/Moderate Assistance-helper does LESS THAN HALF the effort. [place] lifts, holds or supports trunk or limbs, but provides less than half the effort. 2-Substantial/Maximal Assistance-helper does MORE THAN HALF the effort. [place] lifts or holds trunk or limbs and provides more than half the effort. 1-Hdzzoydjm-dunqrg does ALL the effort. Patient does none of the effort to complete the activity. Or, the assistance of 2 or more helpers is required for the patient to complete the activity. If activity was not attempted, code reason: 7-Patient Refused. 9-Not Applicable-not attempted and the patient did not perform the activity before the current illness, exacerbation or injury. 10-Not Attempted due to Environmental Limitations-(lack of equipment, weather restraints, etc.). 88-Not Attempted due to Medical Conditions or Safety Concerns. Sit to Stand (QC): 1 Weight Bearing Right Lower Extremity: Right Weight Bearing/Tolerated Left Lower Extremity: Left Weight Bearing/Tolerated Exercises Seated Therapy Exercises: Ankle pumps, Long arc quads, Hip flexion Seated Reps: 15 Treatments LE exercises, sit to stand to FWW x 2 reps Assessment Current Status: Fair Progress Pt. is very weak in LE's and confused. She is max A/mod A for sit to stand from chair, only able to straighten LE's briefly for erect position before knees buckling. Pt. remaining sitting in chair post session, call light in reach and all needs met, chair alarm on. PT Catering Cook Goals Catering Cook Goals PT Catering Cook Goals Time Frame: Jan 13, 2021 Roll Left & Right (QC): 4 Sit to Lying (QC): 4 Lying-Sitting on Side/Bed(QC): 4 Sit to Stand (QC): 4 Chair/Xay-fj-Lhdhm Xfer(QC): 4 Walk 10 feet (QC): 3 Walk 50ft with 2 Turns (QC): 3 Walk 150 ft (QC): 3 PT Plan Treatment/Plan Treatment Plan: Continue Plan of Care Treatment Plan: Bed Mobility, Education, Functional Activity Elliott, Functional Strength, Gait, Safety, Therapeutic Exercise, Transfers Treatment Duration: Jan 13, 2021 Frequency: 6 times per week Estimated Hrs Per Day: .25 hour per day Patient and/or Family Agrees t: Yes Time/GCodes Time In: 1127 Time Out: 1141 Total Billed Treatment Time: 14 Total Billed Treatment 1, FA 14' WANG ALBARADO PT Jan 01, 2021 11:35
[2021-01-01 11:55] VITALS: BP 117/71
--- NOTE | 2021-01-01 12:40 | Occupational Therapy Eval ---
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 Schizophrenia, depression. CVA August 2020 with residual R sided weakness Current History Admitted from [facility] with respiratory issues. Bilat PE, acute respiratory failure with hypoxia, thyroid mass Reviewed History: Yes Social History Home: [facility] ADL-Prior Level of Function SCALE: Activities may be completed with or without assistive devices. 0-Dwxtkszvee-yzqwmeu completes the activity by him/herself with no assistance from a helper. 5-Set-up or Clean-up Assistance-helper sets up or cleans up; patient completes activity. [place] assists only prior to or following the activity. 4-Supervision or Touching Assistance-helper provides verbal cues and/or touching/steadying and/or contact guard assistance as patient completes activity. Assistance may be provided throughout the activity or intermittently. 3-Partial/Moderate Assistance-helper does LESS THAN HALF the effort. [place] lifts, holds or supports trunk or limbs, but provides less than half the effort. 2-Substantial/Maximal Assistance-helper does MORE THAN HALF the effort. [place] lifts or holds trunk or limbs and provides more than half the effort. 0-Mwymjwgiw-usvrmi does ALL the effort. Patient does none of the effort to complete the activity. Or, the assistance of 2 or more helpers is required for the patient to complete the activity. If activity was not attempted, code reason: 7-Patient Refused. 9-Not Applicable-not attempted and the patient did not perform the activity before the current illness, exacerbation or injury. 10-Not Attempted due to Environmental Limitations-(lack of equipment, weather restraints, etc.). 88-Not Attempted due to Medical Conditions or Safety Concerns. ADL PLOF Comments Pt indicated that she was able to manage all of her basic ADLs but she currently needs help with transfers, eating, toileting. Self Care: Needed Some Help Functional Cognition: Needed Some Help Occupation: Retired OT Current Status Subjective Pt seen in room, up in recliner, eating. Pain rated 0/10 Appearance Alert, cooperative, very talkative. Knows name, , location and current year Mental Status/Objective Patient Orientation: Person, Place Attachments: IV Current Glasses/Contacts: Yes Dentures/Partials: No Hand Dominance: Right Upper Extremity ROM Grossly WFL except R sided lags behind L. Some arthritic changes in hands. Decreased functional use R hand. Unable to open hand fully but does have some pincer function. Decr hand function L and unable to open hand fully. Upper Extremity Coordination Impaired bilat Upper Extremity Sensation Pt reportd numbness and tingling in both hands, thumb and index fingers, which limit the use of her hands. She demonstrated how she has to watch how she places a fork in her L hand ADL-Treatment ADL-Current Pt was able to feed herself using L hand, with intentional placement of fork. She could not grasp a glass with either hand but could move it with L hand to get a drink with a straw. She could stab vegetables and fruit with L hand. PT eval reports max/mod sit to stand transfers and difficulty maintaining weight bearing. Eating (QC): 5 (setup) Pt left up in recliner, eating, all needs met. Education OT Patient Education: Purpose of tx/functional activities Teaching Recipient: Patient Teaching Methods: Discussion Response to Teaching: Verbalize Understanding OT Appliance Repairer Goals Appliance Repairer Goals Time Frame: Jan 05, 2021 Eating (QC): 5 Oral Hygiene (QC): 5 Toileting Hygiene (QC): 3 Upper Body Dressing (QC): 5 Lower Body Dressing (QC): 3 On/Off Footwear (QC): 2 Additional Goals: 1-Demonstrate ADL Tasks, 2-Verbalize Understanding, 3- ImproveStrength/[place] 1=Demonstrate adherence to instructed precautions during ADL tasks. 2=Patient will verbalize/demonstrate understanding of assistive devices/modifications for ADL. 3=Patient will improve strength/tolerance for activity to enable patient to perform ADL's. OT Education/Plan Problem List/Assessment Assessment: Decreased Safety Aware, Decreased UE Strength, Dependent Transfers, Impaired Cognition, Impaired Coordination, Impaired Funct Balance, Impaired Self-Care Skills, Restricted Funct UE ROM Pt would benefit from skilled OT to increase her independence in basic self care and decrease caregiver burden. Discharge Recommendations Plan/Recommendations: Continue POC Therapy Discharge Recommendati: Post Acute OT Treatment Plan/Plan of Care Treatment,Training & Education: Yes Patient would benefit from OT for education, treatment and training to promote independence in ADL's, mobility, safety and/or upper extremity function for ADL's. Plan of Care: ADL Retraining, Functional Mobility, UE Funct Exercise/Act, UE Neuromus Re-Ed/Coord Treatment Duration: Jan 05, 2021 Frequency: 5 times per week Estimated Hrs Per Day: .25 hour per day Agreement: Yes Rehab Potential: Fair Time/GCodes Start Time: 12:06 Stop Time: 12:25 Total Time Billed (hr/min): 19 Billed Treatment Time visit, 19 minutes evaluation high intensity RON MARVIN OT Jan 01, 2021 12:40
[2021-01-01 15:44] VITALS: BP 127/70
[2021-01-01] MEDS: PHENYTOIN 100 MG (DILANTIN) CAP PO SCH (17:59)
[2021-01-01] MEDS: QUEtiapine 25 MG (SEROquel) TAB IMMEDIATE RELEASE PO SCH (17:59)
[2021-01-01 19:37] VITALS: BP 121/64
[2021-01-02] VITALS (7 sets, daily range): BP systolic 113–143; BP diastolic 60–75
[2021-01-02] MEDS: CATHETER FLUSH 10 ML SYR IV SCH ×3 (05:36→20:02)
[2021-01-02 05:41] LABS: BASOPHILS # (AUTO) 0.1 10^3/uL (0.0-0.1); BASOPHILS % (AUTO) 1 % (0-10); EOSINOPHILS # (AUTO) 0.2 10^3/uL (0.0-0.3); EOSINOPHILS % (AUTO) 2 % (0-10); HEMATOCRIT 37 % (35-52); HEMOGLOBIN 12.2 g/dL (11.5-16.0); LYMPHOCYTES # (AUTO) 1.9 10^3/uL (1.0-4.0); LYMPHOCYTES % (AUTO) 19 % (12-44); MEAN CORPUSCULAR HEMOGLOBIN 31 pg (25-34); MEAN CORPUSCULAR HGB CONC 33 g/dL (32-36); MEAN CORPUSCULAR VOLUME 94 fL (80-99); MEAN PLATELET VOLUME 9.6 fL (9.0-12.2); MONOCYTES # (AUTO) 0.9 10^3/uL (0.0-1.0); MONOCYTES % (AUTO) 9 % (0-12); NEUTROPHILS # (AUTO) 6.6 10^3/uL (1.8-7.8); NEUTROPHILS % (AUTO) 68 % (42-75); PLATELET COUNT 203 10^3/uL (130-400); WHITE BLOOD COUNT 9.7 10^3/uL (4.3-11.0)
[2021-01-02 05:58] LABS: ALBUMIN 3.3 GM/DL (3.2-4.5); POTASSIUM 4.2 MMOL/L (3.6-5.0)
[2021-01-02 05:59] LABS: CALCIUM 9.8 MG/DL (8.5-10.1)
[2021-01-02 06:00] LABS: TOTAL PROTEIN 6.3 GM/DL (6.4-8.2)
[2021-01-02 06:02] LABS: BILIRUBIN,TOTAL 0.4 MG/DL (0.1-1.0)
[2021-01-02 06:04] LABS: CREATININE SERUM 0.72 MG/DL (0.60-1.30)
[2021-01-02] MEDS: DOCUSATE SODIUM 100 MG (COLACE) CAP PO SCH ×2 (08:53→20:01)
[2021-01-02] MEDS: LACTULOSE SYRUP 10GM/15ML (ENULOSE) 30ML UDC PO SCH (08:53)
[2021-01-02] MEDS: LEVOTHYROXINE 50 MCG (LEVOTHROID) TAB PO SCH (08:53)
[2021-01-02] MEDS: APIXABAN 5 MG (ELIQUIS) TABLET PO SCH ×2 (08:53→20:01)
--- NOTE | 2021-01-02 09:20 | Occupational Ther Daily Note ---
OT Current Status-Daily Note Subjective Pt laying in bed, agreeable to OT tx. Pt appeared slightly confused at times, repeating the same questions to this therapist throughout tx. Mental Status/Objective Patient Orientation: Person, Confused ADL-Treatment Therapy Code Descriptions/Definitions Functional [place] Measure: 0=Not Assessed/NA 4=Minimal Assistance 1=Total Assistance 5=Supervision or Setup 2=Maximal Assistance 6=Modified [place] 3=Moderate Assistance 7=Complete IndependenceSCALE: Activities may be completed with or without assistive devices. 9-Xymzmfpcnf-wgbgyrm completes the activity by him/herself with no assistance from a helper. 5-Set-up or Clean-up Assistance-helper sets up or cleans up; patient completes activity. [place] assists only prior to or following the activity. 4-Supervision or Touching Assistance-helper provides verbal cues and/or touching/steadying and/or contact guard assistance as patient completes activity. Assistance may be provided throughout the activity or intermittently. 3-Partial/Moderate Assistance-helper does LESS THAN HALF the effort. [place] lifts, holds or supports trunk or limbs, but provides less than half the effort. 2-Substantial/Maximal Assistance-helper does MORE THAN HALF the effort. [place] lifts or holds trunk or limbs and provides more than half the effort. 9-Xlpuvjbvv-eehpcf does ALL the effort. Patient does none of the effort to complete the activity. Or, the assistance of 2 or more helpers is required for the patient to complete the activity. If activity was not attempted, code reason: 7-Patient Refused. 9-Not Applicable-not attempted and the patient did not perform the activity before the current illness, exacerbation or injury. 10-Not Attempted due to Environmental Limitations-(lack of equipment, weather restraints, etc.). 88-Not Attempted due to Medical Conditions or Safety Concerns. Eating (QC): 5 (set up,) Oral Hygiene (QC): 3 (Min A, OT held basin for pt, pt able to use toothbrush and grab cup to rinse) Lower Body Dressing (QC): 1 (total assist changing soiled brief.) Toileting Hygiene (QC): 1 (Total assist changing soiled brief.) Other Treatment Pt in bed, agreeable to OT tx. Pt states she is done with breakfast, required set up assistance with task. Pt is able to use utensils to get food from plate to mouth. Pt brushed teeth with min A, OT held basin for pt as she rinsed her mouth. Pt combed hair with min A in back of head, and set up assistance wtih face washing. Pt indicates her brief is wet, pt rolled side to side at bed level, min A. total assistance provided for toilet hygiene and changing the brief. Nurse notified of red area on coccyx area, zinc cream applied. Post tx, pt laying in bed, call light in reach and all needs met, bed alarm activated, nurse present with medication. Education OT Patient Education: Correct positioning, Energy conservation, Modified ADL techniques, Progress toward Goal/Update tx plan, Purpose of tx/functional activities, Rehab process Teaching Recipient: Patient Teaching Methods: Discussion Response to Teaching: Verbalize Understanding, Reinforcement Needed OT Mcc Goals Mcc Goals Time Frame: Jan 05, 2021 Eating (QC): 5 Oral Hygiene (QC): 5 Toileting Hygiene (QC): 3 Upper Body Dressing (QC): 5 Lower Body Dressing (QC): 3 On/Off Footwear (QC): 2 Additional Goals: 1-Demonstrate ADL Tasks, 2-Verbalize Understanding, 3- ImproveStrength/[place] 1=Demonstrate adherence to instructed precautions during ADL tasks. 2=Patient will verbalize/demonstrate understanding of assistive devices/modifications for ADL. 3=Patient will improve strength/tolerance for activity to enable patient to perform ADL's. OT Education/Plan Problem List/Assessment Assessment: Decreased Activ Tolerance, Decreased UE Strength, Impaired Bed Mobility, Impaired Funct Balance, Impaired I ADL's, Impaired Self-Care Skills, Restricted Funct UE ROM Pt would benefit from skilled OT to increase her independence in basic self care and decrease caregiver burden. Discharge Recommendations Plan/Recommendations: Continue POC Treatment Plan/Plan of Care Patient would benefit from OT for education, treatment and training to promote independence in ADL's, mobility, safety and/or upper extremity function for ADL's. Plan of Care: ADL Retraining, Functional Mobility, UE Funct Exercise/Act, UE Neuromus Re-Ed/Coord Treatment Duration: Jan 05, 2021 Frequency: 5 times per week Estimated Hrs Per Day: .25 hour per day Agreement: Yes Rehab Potential: Fair Time/GCodes Start Time: 08:25 Stop Time: 08:53 Total Time Billed (hr/min): 28 Billed Treatment Time 1, ADL 2 ZHEN GREY OT Jan 02, 2021 09:20
--- NOTE | 2021-01-02 11:24 | Progress Note - Hospitalist ---
JERRY HUFF MED STUDENT 01/02/21 1124: Subjective HPI/CC On Admission Date Seen by Provider: Jan 02, 2021 Time Seen by Provider: 06:55 SOB Subjective/Events-last exam Candelaria Gobl states no new complaints. She is not feeling short of breath and denies pain including chest pain and abdominal pain. Candelaria expressed multiple times that she does not want to return to her prior living situation. Objective Exam Vital Signs Vital Signs Date Time Temp Pulse Resp B/P (MAP) Pulse Ox O2 Delivery O2 Flow Rate FiO2 01/02/21 11:28 37.0 77 20 136/75 (95) 97 Room Air 12/30/20 13:00 2.00 Capillary Refill : Less Than 3 Seconds General Appearance: No Apparent Distress, Thin HEENT: PERRL/EOMI, Moist Mucous Membranes Neck: Full Range of Motion, Normal Inspection, Non Tender, Supple Respiratory: Chest Non Tender, Lungs Clear, Normal Breath Sounds, No Accessory Muscle Use, No Respiratory Distress Cardiovascular: Regular Rate, Rhythm, No Edema, No Gallop, No Murmur Gastrointestinal: Non Tender, Soft Extremity: Normal Capillary Refill, Normal Inspection, Normal Range of Motion, Non Tender Neurologic/Psychiatric: Alert, Disoriented (mild confusion, occasional dif ficulty word-finding) Skin: Normal Color, Warm/Dry Results/Procedures Lab Laboratory Tests 01/02/21 05:35 Patient resulted labs reviewed. Assessment/Plan Assessment and Plan Assess & Plan/Chief Complaint Assessment & Plan: saddle pulmonary emboli -on Eliquis -continue for 6 months Acute respiratory failure -resolved. Not dyspneic when sedentary on RA. Confusion, baseline dementia Frail appearance increased fall risk -inpatient rehab facility to increase strength [facility] assessed patient today and will be accepting the patient RIZOKAY GARCIA 01/03/21 0517: Subjective Subjective/Events-last exam Pt awaiting discharge to [facility] All orders put in Pt feels really good Will need PT and OT orders Review of Systems General: Fatigue, Malaise Objective Exam General Appearance: No Apparent Distress, WD/WN, Chronically ill Respiratory: Lungs Clear, Normal Breath Sounds Cardiovascular: Regular Rate, Rhythm Neurologic/Psychiatric: Alert, Disoriented (mild confusion, occasional difficulty word-finding) Assessment/Plan Assessment and Plan Assess & Plan/Chief Complaint Discharge plan for tomorrow Continue therapy Supervisory-Addendum Brief Verification & Attestation Participated in pt care: history, MDM, physical Personally performed: exam, history, MDM, supervision of care Care discussed with: Medical Student Procedures: n/a Results interpretation: Verified all documentation Verification and Attestation of Medical Student E/M Service A medical student performed and documented this service in my presence. I reviewed and verified all information documented by the medical student and made modifications to such information, when appropriate. I personally performed the physical exam and medical decision making. Kay Rizo, Jan 03, 2021,05:16 JERRY HUFF MED STUDENT Jan 02, 2021 11:24 KAY RIZO DO Jan 03, 2021 05:17
--- NOTE | 2021-01-02 11:48 | Physical Therapy Daily Note ---
PT Daily Note-Current Subjective Pt in recliner upon arrival and agrees to tx. Pt has no c/o pain. Mental Status Patient Orientation: Person, Place, Situation Transfers SCALE: Activities may be completed with or without assistive devices. 8-Hwmgmjdkou-nujpvsx completes the activity by him/herself with no assistance from a helper. 5-Set-up or Clean-up Assistance-helper sets up or cleans up; patient completes activity. [place] assists only prior to or following the activity. 4-Supervision or Touching Assistance-helper provides verbal cues and/or touching/steadying and/or contact guard assistance as patient completes activity. Assistance may be provided throughout the activity or intermittently. 3-Partial/Moderate Assistance-helper does LESS THAN HALF the effort. [place] lifts, holds or supports trunk or limbs, but provides less than half the effort. 2-Substantial/Maximal Assistance-helper does MORE THAN HALF the effort. [place] lifts or holds trunk or limbs and provides more than half the effort. 7-Dkpvkenop-jpzale does ALL the effort. Patient does none of the effort to complete the activity. Or, the assistance of 2 or more helpers is required for the patient to complete the activity. If activity was not attempted, code reason: 7-Patient Refused. 9-Not Applicable-not attempted and the patient did not perform the activity before the current illness, exacerbation or injury. 10-Not Attempted due to Environmental Limitations-(lack of equipment, weather restraints, etc.). 88-Not Attempted due to Medical Conditions or Safety Concerns. Sit to Stand (QC): 2 Toilet Transfer (QC): 2 Pt sit to stand MaxA x5, requiring VC to extend LE. Pt unable to stand upright d/t weakness. Pt transfers from recliner to [facility] MaxA x2 w/ A from ASSOCIATE TRAINER. Weight Bearing Right Lower Extremity: Right Weight Bearing/Tolerated Left Lower Extremity: Left Weight Bearing/Tolerated Exercises Supine Ex: Ankle pumps, Heel Slides, Straight leg raise, Hip abd/add Supine Reps: 5 Treatments Pt performs sit to stand, followed by seated ex. Pt request to use BR, pt transfers MaxAx2 to [facility]. Pt requires A for doffing/donning pants as well as cleaning. Pt returns to recliner and was left with all needs met, call light in hand. Assessment Current Status: Fair Progress Pt requires frequent rest breaks. Pt limited d/t weakness and fatigue. PT Creative Services Designer Goals Senior Care Goals PT Senior Care Goals Time Frame: Jan 13, 2021 Roll Left & Right (QC): 4 Sit to Lying (QC): 4 Lying-Sitting on Side/Bed(QC): 4 Sit to Stand (QC): 4 Chair/Yyn-ms-Lxhvv Xfer(QC): 4 Walk 10 feet (QC): 3 Walk 50ft with 2 Turns (QC): 3 Walk 150 ft (QC): 3 PT Plan Problem List Problem List: Activity Tolerance Treatment/Plan Treatment Plan: Continue Plan of Care Treatment Plan: Bed Mobility, Education, Functional Activity [place], Functional Strength, Gait, Safety, Therapeutic Exercise, Transfers Treatment Duration: Jan 13, 2021 Frequency: 6 times per week Estimated Hrs Per Day: .25 hour per day Patient and/or Family Agrees t: Yes Time/GCodes Time In: 1100 Time Out: 1118 Total Billed Treatment Time: 18 Total Billed Treatment STELLA Pearson SYDNEY PTA Jan 02, 2021 11:48
[2021-01-02] MEDS ORDERED: APIX5TAB PO (12:18)
--- NOTE | 2021-01-02 12:19 | D/C HH Face to Face Order ---
D/C HH Face to Face Orders Reconcile Patient Problems Problems Reviewed?: Yes Instructions for Patient HH Patient Instructions/FollowUp: PCP 1 week Physician to follow Patient: [facility] Discharge Diet for Home: No Restrictions Patient Problems: PE Debility Dementia Patient Data-Allergies,Ht & Wt Patient Allergies: Coded Allergies: Penicillins (Verified Allergy, Intermediate, rash, 12/03/18) oseltamivir (Verified Allergy, Intermediate, Vomiting, 12/03/18) Height (Feet): 5 Height (Inches): 1.00 Weight (Pounds): 160 Home Health Need/Face to Face Date of Face to Face: Jan 02, 2021 Clinical Findings: Generalized weakness and fatigue, Instability, Muscle weakness, Shortness of breath, Unsteady gait I have seen Pt [id number]-[id number]: Yes Discharged To: Home Diagnosis/Conditions: PE Dementia Patient is Homebound due to: CognItive deficits, [place] fall risk due to instabilty, Muscle weakness Homebound Status Due to the above stated illness, injury or surgical procedure (medical condition or diagnosis) and associated clinical findings, the patient is homebound because of his/her inability to leave home except with aid of a supportive device and/or person AND leaving the home requires a considerable and taxing effort or is medically contraindicated. Pt req the following assistanc: [facility] Nursing Orders Home Health Services Order: Embalmer Apprentice-Evaluate & Treat, Physical Therapy-Evaluate & Treat Home Health Infusion Therapy Line Start Date: Dec 27, 2020 Certify Stmt I certify that this patient is under my care and that I, a nurse practitioner or a physician; a assistant broker working with me, had a face to face encounter that - meets the physician face to face encounter requirements with this patient as dated. SERGEY RIZO DO Jan 02, 2021 12:19
[2021-01-02] MEDS: PHENYTOIN 100 MG (DILANTIN) CAP PO SCH (17:14)
[2021-01-02] MEDS: QUEtiapine 25 MG (SEROquel) TAB IMMEDIATE RELEASE PO SCH (17:15)
[2021-01-03 04:00] VITALS: BP 148/65
--- NOTE | 2021-01-03 06:40 | Discharge Summary ---
Discharge Summary Hospital Course Was the Problem List Reviewed?: Yes Problems/Dx: (1) Saddle pulmonary embolus Status: Acute Qualifiers: Qualified Codes: I26.92 - Saddle embolus of pulmonary artery without acute cor pulmonale (2) DVT (deep venous thrombosis) Status: Acute Qualifiers: Qualified Codes: I82.433 - Acute embolism and thrombosis of popliteal vein, bilateral (3) Dementia Status: Chronic (4) Acute respiratory failure with hypoxia Status: Acute (5) Thyroid mass Status: Acute Hospital Course Date of Admission: Dec 27, 2020 at 23:05 Admission Diagnosis : Family Physician/Provider: Jimy Valerio MD Date of Discharge: 01/03/21 Discharge Diagnosis: Acute hypoxic respiratory failure, bilateral saddle pulmonary emboli, DVTs, thyroid mass needs work-up Hospital Course: Hospital course: Pt had a lengthy hospital course after she was admitted for hypoxia and altered mental status, found to have B/L pulmonary emboli, unprovoked. Pt was placed on Heparin, she did have venous Doppler showing B/L DVTs, she was transitioned to E liquis and she will have close follow up on residential rounds to evaluate a possible thyroid mass also. I updated Dr. Valerio regarding the thyroid mass. She will remain on anticoagulation for a total of six months. Labs and Pending Lab Test: Microbiology 12/27/20 Blood Culture - Final, Complete No growth Home Meds Active Eliquis (Apixaban) 5 Mg Tablet 5 Mg PO BID 180 Days Reported Docusate Sodium 100 Mg Capsule 100 Mg PO BID Lactulose 20 Gm/30 Ml Solution 30 Ml PO DAILY Miralax (Polyethylene Glycol 3350) 17 Gm Powd.pack 17 Gm PO DAILY PRN Tylenol Arthritis (Acetaminophen) 650 Mg Tablet.er 650 Mg PO Q6H PRN Seroquel (Quetiapine Fumarate) 50 Mg Tablet 50 Mg PO 1800 Phenytoin Sodium Extended 100 Mg Capsule 300 Mg PO 1800 TAKES 3 (100MG) CAPS Euthyrox (Levothyroxine Sodium) 50 Mcg Tablet 50 Mcg PO DAILY Vitamin D2 (Ergocalciferol (Vitamin D2)) 1,250 Mcg Capsule 1,250 Mcg PO THUR Assessment/Pt Instructions [facility] in 1 week to evaluate thyroid mass Discharge Planning: <30 minutes discharge planning Discharge Instructions Discharge Diet: No Restrictions Discharge Physical Examination Vital Signs Vital Signs Date Time Temp Pulse Resp B/P (MAP) Pulse Ox O2 Delivery O2 Flow Rate FiO2 01/02/21 23:04 37.1 72 20 125/60 (81) 95 Room Air 12/30/20 13:00 2.00 General Appearance: No Apparent Distress, WD/WN, Chronically ill Allergies: Coded Allergies: Penicillins (Verified Allergy, Intermediate, rash, 12/03/18) oseltamivir (Verified Allergy, Intermediate, Vomiting, 12/03/18) Discharge Summary Date of Admission Dec 27, 2020 at 23:05 Date of Discharge Discharge Date: Jan 03, 2021 Discharge Diagnosis Discharge plan for tomorrow Continue therapy SERGEY RIZO DO Jan 03, 2021 06:40
[2021-01-03] MEDS: CATHETER FLUSH 10 ML SYR IV SCH ×2 (06:49→08:27)
[2021-01-03 08:00] VITALS: BP 121/71
[2021-01-03] MEDS: APIXABAN 5 MG (ELIQUIS) TABLET PO SCH (08:26)
[2021-01-03] MEDS: DOCUSATE SODIUM 100 MG (COLACE) CAP PO SCH (08:26)
[2021-01-03] MEDS: LACTULOSE SYRUP 10GM/15ML (ENULOSE) 30ML UDC PO SCH (08:26)
[2021-01-03] MEDS: LEVOTHYROXINE 50 MCG (LEVOTHROID) TAB PO SCH (08:26)
--- NOTE | 2021-01-03 08:56 | Physical Therapy Daily Note ---
PT Daily Note-Current Subjective Pt in bed upon arrival and agrees to tx. Pt more confused today, repeatedly states she has to call her mother, and that she couldn't find her brush. EMERGENCY VEHICLE DRIVER pointed out brush was in pt had multiple times throughout tx. Mental Status Patient Orientation: Person, Confused Transfers SCALE: Activities may be completed with or without assistive devices. 8-Hjligjgfzl-ideohhz completes the activity by him/herself with no assistance from a helper. 5-Set-up or Clean-up Assistance-helper sets up or cleans up; patient completes activity. [place] assists only prior to or following the activity. 4-Supervision or Touching Assistance-helper provides verbal cues and/or touching/steadying and/or contact guard assistance as patient completes activity. Assistance may be provided throughout the activity or intermittently. 3-Partial/Moderate Assistance-helper does LESS THAN HALF the effort. [place] lifts, holds or supports trunk or limbs, but provides less than half the effort. 2-Substantial/Maximal Assistance-helper does MORE THAN HALF the effort. [place] lifts or holds trunk or limbs and provides more than half the effort. 5-Uwddqcnqf-gmyhlq does ALL the effort. Patient does none of the effort to complete the activity. Or, the assistance of 2 or more helpers is required for the patient to complete the activity. If activity was not attempted, code reason: 7-Patient Refused. 9-Not Applicable-not attempted and the patient did not perform the activity before the current illness, exacerbation or injury. 10-Not Attempted due to Environmental Limitations-(lack of equipment, weather restraints, etc.). 88-Not Attempted due to Medical Conditions or Safety Concerns. Roll Left & Right (QC): 3 Lying to Sitting/Side of Bed(Q: 3 Sit to Stand (QC): 2 Chair/Uea-pn-Amrfq Xfer(QC): 2 Pt performs bed mobility w/ TC for placement and ModA for mobility. Pt supine to sit needs ModA for LE sequencing and bringing torso upright. Pt sit to stand and transfers MaxA, pt unable to extend legs in stance. Weight Bearing Right Lower Extremity: Right Weight Bearing/Tolerated Left Lower Extremity: Left Weight Bearing/Tolerated Exercises Seated Therapy Exercises: Ankle pumps, Long arc quads Seated Reps: 10 Treatments Pt performs bed mobility, followed by transfer to recliner. Pt completes seated ex, and was left with all needs met, call light in hand. Assessment Current Status: Good Progress, Fair Progress Pt limited by weakness PT Dealmaker Goals Dealmaker Goals PT Dealmaker Goals Time Frame: Jan 13, 2021 Roll Left & Right (QC): 4 Sit to Lying (QC): 4 Lying-Sitting on Side/Bed(QC): 4 Sit to Stand (QC): 4 Chair/Zby-aw-Ejlbm Xfer(QC): 4 Walk 10 feet (QC): 3 Walk 50ft with 2 Turns (QC): 3 Walk 150 ft (QC): 3 PT Plan Problem List Problem List: Activity Tolerance, Functional Strength, Safety Treatment/Plan Treatment Plan: Continue Plan of Care Treatment Plan: Bed Mobility, Education, Functional Activity Elliott, Functional Strength, Gait, Safety, Therapeutic Exercise, Transfers Treatment Duration: Jan 13, 2021 Frequency: 6 times per week Estimated Hrs Per Day: .25 hour per day Patient and/or Family Agrees t: Yes Time/GCodes Time In: 808 Time Out: 820 Total Billed Treatment Time: 12 (12) Total Billed Treatment STELLA Pearson [place] EMERGENCY VEHICLE DRIVER Jan 03, 2021 08:56
[2021-01-03 13:24] VITALS: BP 121/71
[2021-01-04] MEDS ORDERED: VITAMIN D2 1.25 MG (50,000 UNITS) CAP PO SCH (09:00)
[2021-01-05] MEDS ORDERED: APIXABAN 5 MG (ELIQUIS) TABLET PO SCH (09:00)
== END 2021-01-03 13:31 | disposition home health service (06) | DRG 175 ==
LOC: EDUNIT# 19:58 → ER 20:00 → CSD 23:05 → 4TH 12-30 15:29
PROVIDERS: ADMIT Family Medicine; ATTEND Internal Medicine
DX: I26.92 Saddle embolus of pulmonary artery without acute cor pulmonale (principal); J96.01 Acute respiratory failure with hypoxia; I82.433 Acute embolism and thrombosis of popliteal vein, bilateral; S02.2XXA Fracture of nasal bones, initial encounter for closed fracture; F03.90 Unspecified dementia, unspecified severity, without behavioral disturbance, psychotic disturbance, mood disturbance, and anxiety; G40.909 Epilepsy, unspecified, not intractable, without status epilepticus; E07.9 Disorder of thyroid, unspecified; E78.00 Pure hypercholesterolemia, unspecified; Z20.822 Contact with and (suspected) exposure to COVID-19; E78.5 Hyperlipidemia, unspecified; F20.9 Schizophrenia, unspecified; F32.9 Major depressive disorder, single episode, unspecified; Z88.3 Allergy status to other anti-infective agents; Z88.0 Allergy status to penicillin; W19.XXXA Unspecified fall, initial encounter; Y92.129 Unspecified place in nursing home as the place of occurrence of the external cause
CPT/HCPCS: 36415; 51701; 70450; 70486; 71045; 71250; 71275; 72125; 74176; 80048; 80053; 80185; 81000; 82150; 82550; 82553; 82805; 83605; 83615; 83690; 83735; 83874; 83880; 84145; 84443; 84484; 85025; 85379; 85610; 85652; 85730; 86141; 87040; 87636; 93005; 93041; 93970; 96361; 96374

== ENCOUNTER 2021-02-07 21:00 | Emergency (ER) | payer MEDICARE ==
[~2021-02-07] VITALS: Ht 14.9 cm; Wt 46.0 kg
[~2021-02-07 21:00] MED LIST changes: +ACET-2650 PO; +APIX5TAB PO; +DOCU100C37 PO; +LACT20SO2 PO; +NAPR-915 PO; +POLY17PO6 PO; +QUET50TA PO
--- NOTE | 2021-02-07 21:32 | ED Fall/Injury ---
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 She was leaning over trying to reach something in her wheelchair about an hour ago when she fell out of her wheelchair and landed on her right side. Initially said she had right sided pain generally but mostly R knee. Pain is mild to moderate, intermittent, worse with movement, better with rest, and achy. Does not think she hit her head or passed out. Denies any back pain, new weakness, numbness. headache, vision changes, chest pain, SOB, abd pain, n/v/d, or any other concerns. Allergies and Home Medications Allergies Coded Allergies: Penicillins (Verified Allergy, Intermediate, rash, 12/03/18) oseltamivir (Verified Allergy, Intermediate, Vomiting, 12/03/18) Patient Home Medication List Home Medication List Reviewed: Yes Acetaminophen (Tylenol Arthritis) 650 Mg Tablet.er, 650 MG PO Q6H PRN for PAIN- MILD (1-4), (Reported) Entered as Reported by: FAY ARBOLEDA on 12/28/2048 Apixaban (Eliquis) 5 Mg Tablet, 5 MG PO BID Prescribed by: SERGEY RIZO on 01/02/21 1218 Docusate Sodium (Docusate Sodium) 100 Mg Capsule, 100 MG PO BID, (Reported) Entered as Reported by: FAY ARBOLEDA on 12/28/20 0948 Ergocalciferol (Vitamin D2) (Vitamin D2) 1,250 Mcg Capsule, 1,250 MCG PO THUR, (Reported) Entered as Reported by: YAMEL CUMMINGS on 09/30/20 1438 Lactulose (Lactulose) 20 Gm/30 Ml Solution, 30 ML PO DAILY, (Reported) Entered as Reported by: FAY ARBOLEDA on 12/28/20 0948 Levothyroxine Sodium (Euthyrox) 50 Mcg Tablet, 50 MCG PO DAILY, (Reported) Entered as Reported by: YAMEL CUMMINGS on 09/30/20 1438 Phenytoin Sodium Extended (Phenytoin Sodium Extended) 100 Mg Capsule, 300 MG PO 1800, (Reported) Entered as Reported by: YAMEL CUMMINGS on 09/30/20 1522 Polyethylene Glycol 3350 (Miralax) 17 Gm Powd.pack, 17 GM PO DAILY PRN for CONSTIPATION-2ND LINE, (Reported) Entered as Reported by: FAY ARBOLEDA on 12/28/20 0948 Quetiapine Fumarate (Seroquel) 50 Mg Tablet, 50 MG PO 1800, (Reported) Entered as Reported by: FAY ARBOLEDA on 12/28/20 0948 Review of Systems Review of Systems Constitutional: no symptoms reported Eyes: Denies Blurred Vision Ears, Nose, Mouth, Throat: no symptoms reported Respiratory: No cough, No short of breath Cardiovascular: No chest pain Gastrointestinal: No abdominal pain, No diarrhea, No nausea, No vomiting Genitourinary: no symptoms reported Musculoskeletal: joint pain Skin: no symptoms reported Psychiatric/Neurological: No Symptoms Reported All Other Systems Reviewed Negative Unless Noted: Yes Past Vrdygdp-Btdxve-Ybwgbq Hx Patient Social History Tobacco Use?: No Smoking Status: Never a Smoker Smokeless Tobacco Frequency: Never a User Use of E-Cig and/or Vaping dev: No Substance use?: No Alcohol Use?: No Pt feels they are or have been: No Seasonal Allergies Seasonal Allergies: No Past Medical History Surgery/Hospitalization HX: EPILEPSY DEMENTIA PARANOID SCHIZOPHRENIA Surgeries: Yes Orthopedic Respiratory: No Cardiac: Yes High Cholesterol Neurological: Yes Dementia, Seizure Disorder Genitourinary: No Gastrointestinal: No Musculoskeletal: No Endocrine: No HEENT: No Cancer: No Psychosocial: Yes Schizophrenia, Depression Integumentary: No Blood Disorders: No Physical Exam Vital Signs Vital Signs - First Documented 02/07/21 21:00 Temp 36.5 Pulse 80 Resp 18 B/P (MAP) 154/118 (130) O2 Delivery Room Air Capillary Refill : Height, Weight, BMI Height: 5'1.00" Weight: 160lbs. oz. 72.554572ym; 21.84 BMI Method:Stated General Appearance: WD/WN, no apparent distress HEENT: PERRL/EOMI, normal ENT inspection, TMs normal, pharynx normal Neck: non-tender, full range of motion, supple, normal inspection Cardiovascular: regular rate, rhythm, no edema, no murmur Respiratory: chest non-tender, lungs clear, normal breath sounds, no respiratory distress, no accessory muscle use Gastrointestinal: normal bowel sounds, non tender, soft; No distended, No guarding, No rebound Back: normal inspection, no CVA tenderness, no vertebral tenderness Extremities: normal range of motion, normal inspection, no pedal edema, no calf tenderness, normal capillary refill, other (R medial knee tenderness, mild right anterior shoulder tenderness, normal range of motion of bilateral upper and lower extremities, no pain along hip, ankles, feet, elbows, wrists, hands) Neurologic/Psychiatric: core maker II-XII nml as tested, no motor/sensory deficits, alert, normal mood/affect Skin: normal color, warm/dry Lymphatic: no adenopathy [place] Coma Score Best Eye Response: (4) Open Spontaneously Best Verbal Response: (5) Oriented Best Motor Response: (6) Obeys Commands Progress/Results/Core Measures Results/Orders My Orders Orders - JUAN PABLO BECKMAN MD Ct Head Wo (02/07/21 21:24) Knee 3 View Right (02/07/21 21:24) Shoulder 3 View Right (02/07/21 21:24) Vital Signs/I&O 02/07/21 21:00 Temp 36.5 Pulse 80 Resp 18 B/P (MAP) 154/118 (130) O2 Delivery Room Air Progress Progress Note : Progress Note 75-year-old female with above history coming in after a mechanical fall out of her wheelchair leaning forward trying to reach something. ABCs were intact, vital stable, GCS 15 on presentation. Physical exam reassuring with only findings mild tenderness in the right medial knee and right anterior shoulder. Normal range of motion of her joints otherwise. We will get a CT of her head just because of the fall while she is on blood thinners although I have a low suspicion of any significant injury. Otherwise getting an x-ray of her right knee and right shoulder. CT head ordered and interpreted by me showing no obvious acute bleeding or mass. X-ray of the right knee and right shoulder also negative for any fracture or dislocation. Patient's pain is minimal, she is at her baseline per her sibling who is in the room with her, and overall I believe she is stable for discharge. She was sent home with strict return precautions Diagnostic Imaging Diagonstic Imaging: Xray (right knee and right shoulder), CT (head) Comments X-ray of the right knee and right shoulder ordered and interpreted by me showing no fracture or dislocation. [facility], [place] NAME: RUFINO BILLY [facility] REC#: [id number] PT STATUS: REG ER : 1945 PHYSICIAN: JUAN PABLO BECKMAN MD ADMIT DATE: 02/07/21/ER FS Draft Date of Exam:02/07/21 CT HEAD WO PROCEDURE: CT head without contrast. TECHNIQUE: Multiple contiguous axial images were obtained through the brain without the use of intravenous contrast. Auto Exposure Controls were utilized during the CT exam to meet ALARA standards for radiation dose reduction. DATE: February 07, 2021 COMPARISON: CT head May 21, 2020. INDICATION: 75-year-old female, fall. The patient is on blood thinners. Headache. FINDINGS: The ventricles and cerebral spinal fluid spaces are of normal size and configuration for the patient's age. There is no mass effect or midline shift. There is no acute intracranial hemorrhage. There is no abnormal extra-axial fluid collection. The visualized portions of the paranasal sinuses, mastoid air cells and middle ears are well aerated. IMPRESSION: No identified acute intracranial abnormality. Dictated on workstation # [id number] Dict: 02/07/212224 Trans: 02/07/212235 [facility] [id number] Interpreted by: DEANA MACK MD Electronically signed by: Departure Impression Primary Impression: Fall Qualified Codes: W19.XXXA - Unspecified fall, initial encounter Additional Impression: Right knee pain Qualified Codes: M25.561 - Pain in right knee Disposition: 01 HOME, SELF-CARE Condition: Stable Departure-Patient Inst. Decision time for Depature: 22:50 Referrals: GAURAV OMER MD (PCP/Family) Primary Care Physician Patient Instructions: Knee Pain (DC), Preventing Falls in the Older Adult Add. Discharge Instructions: You are seen in the emergency department after he fell out of your wheelchair and had some right-sided pain. We did a CT of your head which was negative for any new findings including no bleeding. X-rays were negative for fractures in your right upper and lower extremities as well. You likely have some soft tissue bruising which will improve with time. Take Tylenol for pain or you can ice the areas. All discharge instructions reviewed with patient and/or family. Voiced understanding. JUAN PABLO BECKMAN MD Feb 07, 2021 21:32
--- NOTE | 2021-02-07 22:38 | Diagnostic Imaging Report ---
PROCEDURE: CT head without contrast. TECHNIQUE: Multiple contiguous axial images were obtained through the brain without the use of intravenous contrast. Auto Exposure Controls were utilized during the CT exam to meet ALARA standards for radiation dose reduction. DATE: February 07, 2021 COMPARISON: CT head May 21, 2020. INDICATION: 75-year-old female, fall. The patient is on blood thinners. Headache. FINDINGS: The ventricles and cerebral spinal fluid spaces are of normal size and configuration for the patient's age. There is no mass effect or midline shift. There is no acute intracranial hemorrhage. There is no abnormal extra-axial fluid collection. The visualized portions of the paranasal sinuses, mastoid air cells and middle ears are well aerated. IMPRESSION: No identified acute intracranial abnormality. Dictated by: Dictated on workstation # [id number]
--- NOTE | 2021-02-07 22:38 | Diagnostic Imaging Report ---
EXAMINATION: Right knee radiographs, 3 views. COMPARISON: Right knee radiographs December 04, 2018. HISTORY: 75-year-old female, fall. Right knee pain. 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 The hardware appears intact. There is no periprosthetic lucency. There is no identified acute fracture. There is no knee joint effusion. The patella is normally positioned. IMPRESSION: 1. No identified acute fracture. 2. Intact total constrained right knee prosthesis without identified complication. Dictated by: Dictated on workstation # [id number]
--- NOTE | 2021-02-07 22:39 | Diagnostic Imaging Report ---
EXAMINATION: Right shoulder radiographs, 3 views. COMPARISON: None. HISTORY: 75-year-old female, fall. Right shoulder pain. FINDINGS: The humeral head is normally positioned relative to the glenoid. The acromioclavicular joint is normally aligned. There is an acromial keel spur. There is no identified acute fracture. There is limited evaluation of the glenohumeral joint. There are no prominent acromioclavicular degenerative changes. IMPRESSION: 1. No identified acute fracture or abnormal bone alignment. 2. Acromial keel spur. Dictated by: Dictated on workstation # [id number]
[2021-02-07 22:54] VITALS: BP 146/86
== END 2021-02-07 22:54 | disposition home or self-care (01) ==
LOC: EDUNIT# 21:00 → ER FS 21:01
DX: M25.561 Pain in right knee (principal); F20.9 Schizophrenia, unspecified; F32.9 Major depressive disorder, single episode, unspecified; F03.90 Unspecified dementia, unspecified severity, without behavioral disturbance, psychotic disturbance, mood disturbance, and anxiety; G40.909 Epilepsy, unspecified, not intractable, without status epilepticus; Z79.01 Long term (current) use of anticoagulants; Z79.899 Other long term (current) drug therapy
CPT/HCPCS: 70450; 73030; 73562

== ENCOUNTER 2021-04-01 22:33 | Emergency (ER) | payer MEDICARE ==
[~2021-04-01] VITALS: Ht 160 cm; Wt 54.4 kg
[2021-04-01 23:02] LABS: BASOPHILS # (AUTO) 0.1 10^3/uL (0.0-0.1); BASOPHILS % (AUTO) 1 % (0-10); EOSINOPHILS # (AUTO) 0.1 10^3/uL (0.0-0.3); EOSINOPHILS % (AUTO) 1 % (0-10); HEMATOCRIT 41 % (35-52); HEMOGLOBIN 13.4 g/dL (11.5-16.0); LYMPHOCYTES # (AUTO) 2.5 X 10^3 (1.0-4.0); LYMPHOCYTES % (AUTO) 34 % (12-44); MEAN CORPUSCULAR HEMOGLOBIN 30 pg (25-34); MEAN CORPUSCULAR HGB CONC 33 g/dL (32-36); MEAN CORPUSCULAR VOLUME 91 fL (80-99); MONOCYTES # (AUTO) 0.7 X 10^3 (0.0-1.0); MONOCYTES % (AUTO) 9 % (0-12); NEUTROPHILS # (AUTO) 3.9 X 10^3 (1.8-7.8); NEUTROPHILS % (AUTO) 54 % (42-75); PLATELET COUNT 227 10^3/uL (130-400); WHITE BLOOD COUNT 7.1 10^3/uL (4.3-11.0)
[2021-04-01 23:19] LABS: BILIRUBIN,TOTAL 0.2 MG/DL (0.1-1.0); CALCIUM 9.5 MG/DL (8.5-10.1); CREATININE SERUM 0.65 MG/DL (0.60-1.30); POTASSIUM 3.6 MMOL/L (3.6-5.0)
[2021-04-01 23:20] LABS: ALBUMIN 4.1 GM/DL (3.2-4.5); TOTAL PROTEIN 6.9 GM/DL (6.4-8.2)
[2021-04-01 23:27] LABS: BACTERIA,URINE TRACE /HPF; BILIRUBIN,URINE NEGATIVE (NEGATIVE); CLARITY,URINE CLEAR; COLOR,URINE DARK YELLOW; GLUCOSE, URINE (UA) 1+ (NEGATIVE); KETONES,URINE NEGATIVE (NEGATIVE); LEUKOCYTE ESTERASE ,URINE NEGATIVE (NEGATIVE); NITRITE,URINE NEGATIVE (NEGATIVE); PH,URINE 5.5 (5-9); PROTEIN,URINE NEGATIVE (NEGATIVE)
--- NOTE | 2021-04-01 23:31 | Diagnostic Imaging Report ---
EXAMINATION: CT head and CT cervical spine without contrast. TECHNIQUE: Multiple contiguous axial images were obtained through the brain and cervical spine without the use of intravenous contrast. Sagittal and coronal reformations through the cervical spine were then performed. All CT scans use one or more of the following dose optimizing techniques: automated exposure control, MA and/or KvP adjustment based on patient size and exam type or iterative reconstruction. HISTORY: Head and neck injury COMPARISON: 02/07/2021 FINDINGS: There is an unchanged old lacunar infarct in the right basal ganglia. No mass effect or midline shift. The ventricles are normal in size and configuration. Basilar cisterns are patent. There are no intra- or extra-axial fluid collections. There is no intracranial hemorrhage. The orbits are normal. Paranasal sinuses are normal. Mastoid air cells are clear. No soft tissue abnormality is seen. No osseus lesions or fractures are seen. The alignment of the cervical spine is normal. No fracture is seen. Vertebral body heights are normal. The craniocervical junction is normal. There is moderate degenerative disease in the cervical spine. There is no spinal canal stenosis. No soft tissue abnormality is seen in the neck. Limited views of the superior thorax are normal. IMPRESSION: 1. No acute intracranial abnormality. 2. No cervical spine fracture. Dictated by: Dictated on workstation # [id number]
--- NOTE | 2021-04-01 23:32 | Diagnostic Imaging Report ---
EXAMINATION: Chest 1 view HISTORY: Short of breath COMPARISON: 12/31/2019 FINDINGS: The lungs are clear without edema or pneumonia. No pleural effusion or pneumothorax. Heart size is normal. IMPRESSION: 1. Clear lungs. Dictated by: Dictated on workstation # [id number]
--- NOTE | 2021-04-01 23:33 | Diagnostic Imaging Report ---
EXAMINATION: Left hip unilateral 2 or 3 views (w/pelvis when done) HISTORY: Pelvic injury COMPARISON: None available. FINDINGS: There is moderate osteoarthritis. No acute fracture is seen. Alignment is normal. IMPRESSION: 1. No fracture seen. Dictated by: Dictated on workstation # [id number]
--- NOTE | 2021-04-02 01:10 | ED Lower Extremity ---
General Chief Complaint: Trauma-Non Activation Stated Complaint: LEFT HIP/RIGHT SHOULDER PAIN Nursing Triage Note: EMS states that the patient had fallen twice today, according to the skilled nursing. snf reported an SPO2 of 86% on room air however EMS had not gotten anything below 95%. snf staff states that the patient did hit her head when she fell. Patient does answer questions appropriately. Patient is able to tell me that she hurts in her left hip and it goes to her lower back. Patient does have a history of dementia. Source: patient, EMS Exam Limitations: no limitations History of Present Illness Date Seen by Provider: Apr 02, 2021 Time Seen by Provider: 22:40 Initial Comments Patient is a 76-year-old female history of schizophrenia and dementia who was rolled reportedly fallen twice in the past 2 days who presents with left hip pain decreased oxygen saturations. Patient oxygen levels reportedly in the mid 80s on room air at facility. She also complains of low back and low hip pain. On exam there is no obvious deformity shortening or rotation or bruising. Patient with decreased cooperation and pinpoint pupils on ED arrival. Onset: yesterday Severity: moderate Pain/Injury Location: left hip, left leg Method of Injury: other Modifying Factors: Improves With Other Allergies and Home Medications Allergies Coded Allergies: Penicillins (Verified Allergy, Intermediate, rash, 12/03/18) oseltamivir (Verified Allergy, Intermediate, Vomiting, 12/03/18) Patient Home Medication List Home Medication List Reviewed: Yes Acetaminophen (Tylenol Arthritis) 650 Mg Tablet.er, 650 MG PO Q6H PRN for PAIN- MILD (1-4), (Reported) Entered as Reported by: FAY ARBOLEDA on 12/28/20 0948 Apixaban (Eliquis) 5 Mg Tablet, 5 MG PO BID Prescribed by: SERGEY RIZO on 01/02/21 1218 Docusate Sodium (Docusate Sodium) 100 Mg Capsule, 100 MG PO BID, (Reported) Entered as Reported by: FAY ARBOLEDA on 12/28/20 0948 Ergocalciferol (Vitamin D2) (Vitamin D2) 1,250 Mcg Capsule, 1,250 MCG PO THUR, (Reported) Entered as Reported by: YAMEL CUMMINGS on 09/30/20 1438 Lactulose (Lactulose) 20 Gm/30 Ml Solution, 30 ML PO DAILY, (Reported) Entered as Reported by: FAY ARBOLEDA on 12/28/20947 Levothyroxine Sodium (Euthyrox) 50 Mcg Tablet, 50 MCG PO DAILY, (Reported) Entered as Reported by: YAMEL CUMMINGS on 09/30/20 1438 Phenytoin Sodium Extended (Phenytoin Sodium Extended) 100 Mg Capsule, 300 MG PO 1800, (Reported) Entered as Reported by: YAMEL CUMMINGS on 09/30/20 1522 Polyethylene Glycol 3350 (Miralax) 17 Gm Powd.pack, 17 GM PO DAILY PRN for CONSTIPATION-2ND LINE, (Reported) Entered as Reported by: FYA ARBOLEDA on 12/28/20947 Quetiapine Fumarate (Seroquel) 50 Mg Tablet, 50 MG PO 1800, (Reported) Entered as Reported by: FAY ARBOLEDA on 12/28/20947 Review of Systems Constitutional: see HPI EENTM: see HPI Respiratory: see HPI Cardiovascular: see HPI Gastrointestinal: see HPI Genitourinary: see HPI Musculoskeletal: see HPI Skin: see HPI Psychiatric/Neurological: See HPI All Other Systems Reviewed Negative Unless Noted: Yes Past Gurgmbb-Mlouek-Mflqcy Hx Patient Social History Tobacco Use?: Yes Substance use?: No Alcohol Use?: No Pt feels they are or have been: No Seasonal Allergies Seasonal Allergies: No Past Medical History Surgery/Hospitalization HX: EPILEPSY DEMENTIA PARANOID SCHIZOPHRENIA Surgeries: Yes Orthopedic Respiratory: No Cardiac: Yes High Cholesterol Neurological: Yes Dementia, Seizure Disorder Genitourinary: No Gastrointestinal: No Musculoskeletal: No Endocrine: No HEENT: No Cancer: No Psychosocial: Yes Schizophrenia, Depression Integumentary: No Blood Disorders: No Physical Exam Vital Signs Vital Signs - First Documented Capillary Refill : Less Than 3 Seconds Height, Weight, BMI Height: 5'1.00" Weight: 160lbs. oz. [id number]; 21.00 BMI Method:Stated General Appearance: WD/WN, other HEENT: other (Pupils pinpoint) Neck: non-tender, full range of motion, supple Cardiovascular: normal peripheral pulses, regular rate, rhythm Respiratory: lungs clear Gastrointestinal: soft Back: normal inspection Hips: left hip non-tender, left hip normal inspection, left hip normal range of motion, left hip bone tenderness Legs: bilateral leg non-tender, bilateral leg normal inspection, bilateral leg normal range of motion Knees: bilateral knee non-tender, bilateral knee normal inspection, bilateral knee normal range of motion Neurologic/Tendon: normal sensation, normal motor functions Neurologic/Psychiatric: other (Somnolent, responsive to tactile stimulation) Skin: normal color, warm/dry Progress/Results/Core Measures Results/Orders Lab Results Laboratory Tests Test 04/01/21 22:56 04/01/21 23:20 Range/Units White Blood Count 7.1 4.3-11.0 10^3/uL Red Blood Count 4.48 3.80-5.11 10^6/uL Hemoglobin 13.4 11.5-16.0 g/dL Hematocrit 41 35-52 % Mean Corpuscular Volume 91 80-99 fL Mean Corpuscular Hemoglobin 30 25-34 pg Mean Corpuscular Hemoglobin Concent 33 32-36 g/dL Red Cell Distribution Width 13.2 10.0-14.5 % Platelet Count 227 130-400 10^3/uL Mean Platelet Volume 9.0 9.0-12.2 fL Immature Granulocyte % (Auto) 0 % Neutrophils (%) (Auto) 54 42-75 % Lymphocytes (%) (Auto) 34 12-44 % Monocytes (%) (Auto) 9 0-12 % Eosinophils (%) (Auto) 1 0-10 % Basophils (%) (Auto) 1 0-10 % Neutrophils # (Auto) 3.9 1.8-7.8 X 10^3 Lymphocytes # (Auto) 2.5 1.0-4.0 X 10^3 Monocytes # (Auto) 0.7 0.0-1.0 X 10^3 Eosinophils # (Auto) 0.1 0.0-0.3 10^3/uL Basophils # (Auto) 0.1 0.0-0.1 10^3/uL Immature Granulocyte # (Auto) 0.0 0.0-0.1 10^3/uL Sodium Level 143 135-145 MMOL/L Potassium Level 3.6 3.6-5.0 MMOL/L Chloride Level 104 98-107 MMOL/L Carbon Dioxide Level 28 21-32 MMOL/L Anion Gap 11 5-14 MMOL/L Blood Urea Nitrogen 21 H 7-18 MG/DL Creatinine 0.65 0.60-1.30 MG/DL Estimat Glomerular Filtration Rate 89 BUN/Creatinine Ratio 32 Glucose Level 194 H 70-105 MG/DL Calcium Level 9.5 8.5-10.1 MG/DL Corrected Calcium 9.4 8.5-10.1 MG/DL Total Bilirubin 0.2 0.1-1.0 MG/DL Aspartate Amino Transf (AST/SGOT) 15 5-34 U/L Alanine Aminotransferase (ALT/SGPT) 12 0-55 U/L Alkaline Phosphatase 83 40-136 U/L Total Protein 6.9 6.4-8.2 GM/DL Albumin 4.1 3.2-4.5 GM/DL Urine Color DARK YELLOW Urine Clarity CLEAR Urine pH 5.5 5-9 Urine Specific [place] >=1.030 1.016-1.022 Urine Protein NEGATIVE NEGATIVE Urine Glucose (UA) 1+ H NEGATIVE Urine Ketones NEGATIVE NEGATIVE Urine Nitrite NEGATIVE NEGATIVE Urine Bilirubin NEGATIVE NEGATIVE Urine Urobilinogen 0.2 < = 1.0 MG/DL Urine Leukocyte Esterase NEGATIVE NEGATIVE Urine RBC (Auto) 1+ H NEGATIVE Urine RBC NONE /HPF Urine WBC NONE /HPF Urine Squamous Epithelial Cells 5-10 /HPF Urine Crystals NONE /LPF Urine Bacteria TRACE /HPF Urine Casts PRESENT /LPF Urine Hyaline Casts 5-10 H /LPF Urine Mucus LARGE H /LPF Urine Culture Indicated NO My Orders Orders - EMILY LEBLANC DO Ct Head/Neck Wo (04/01/21 22:43) Chest 1 View Ap/Pa Only (04/01/21 22:43) Pelvis With Left Hip 2-3 View (04/01/21 22:43) Urinalysis (04/01/21 22:43) Cbc With Automated Diff (04/01/21 22:43) Comprehensive Metabolic Panel (04/01/21 22:43) Vital Signs/I&O 04/01/21 04/01/21 22:37 22:37 Temp 37.0 37.0 Pulse 73 73 Resp 16 16 B/P (MAP) 139/55 (83) 139/55 (83) Pulse Ox 99 99 O2 Delivery Room Air Room Air Blood Pressure Mean: 83 Departure Communication (Admissions) CT head/cervical spine: No acute disease per radiology report Chest x-ray/pelvis/left hip: No acute findings per radiology report Patient with dementia schizophrenia with out evidence of respiratory compromise or acute injury on exam or imaging studies. Lab work reassuring. Will discharge with return to skilled nursing facility with watchful waiting and close follow-up. Impression Primary Impression: Encounter for medical screening examination Disposition: HOME, SELF-CARE Condition: Stable Departure-Patient Inst. Decision time for Depature: 01:08 Referrals: GAURAV OMER MD (PCP/Family) Primary Care Physician Add. Discharge Instructions: Candelaria was evaluated in the emergency department for possible injury, and respiratory compromise. Vital signs remained stable throughout emergency department on room air. On physical exam there is no obvious injury. Imaging of her head, cervical spine, chest pelvis and left hip were performed and are nonnondiagnostic. Please perform neurochecks every 2 hours while sleeping for the next 8 hours, then every 4 hours for the next 16 and follow-up with your skilled nursing attending in the next 24 hours for reevaluation review of ER labs and imaging. All discharge instructions reviewed with patient and/or family. Voiced understanding. EMILY LEBLANC DO Apr 02, 2021 01:09
[2021-04-02 01:32] VITALS: BP 126/62
== END 2021-04-02 01:41 | disposition home or self-care (01) ==
LOC: EDUNIT# 22:33 → ER FS 22:38
DX: Z00.00 Encounter for general adult medical examination without abnormal findings (principal); F03.90 Unspecified dementia, unspecified severity, without behavioral disturbance, psychotic disturbance, mood disturbance, and anxiety; F20.9 Schizophrenia, unspecified; F32.9 Major depressive disorder, single episode, unspecified; Z72.0 Tobacco use; Z79.01 Long term (current) use of anticoagulants; Z79.899 Other long term (current) drug therapy
CPT/HCPCS: 36415; 70450; 70490; 71045; 73502; 80053; 81000; 85025

== ENCOUNTER → 2021-04-16 | Outpatient (CLI) | payer MEDICARE ==
[~2021-04-16] MED LIST changes: +LIDOCAINE 1% INJ 20 ML 20 ML VIAL INJ ONE
--- NOTE | 2021-04-16 12:42 | Diagnostic Imaging Report ---
INDICATION: Left lobe thyroid nodule. Patient presents for ultrasound guided fine needle aspiration and Rotex biopsy. Patient brought to the procedure room and placed on the table in the supine position. Ultrasound imaging of the left neck was performed evaluating appropriate entry site. Left neck was then prepped and draped in usual sterile fashion. Small amount 1% lidocaine was utilized for local anesthesia. Total of 4 passes were made into the dominant nodule of the left lobe of the thyroid utilizing 25-gauge needles and fine needle aspiration technique. A single pass was made with a Rotex needle and Rotex biopsy was performed. Mason were removed and hemostasis was obtained. Patient tolerated procedure well and left the department in stable condition. IMPRESSION: Successful ultrasound guided fine needle aspiration and Rotex biopsy of dominant left lobe thyroid nodule. Pathology results are currently pending. Dictated by: Dictated on workstation # [id number]
--- NOTE | 2021-04-16 13:40 | Diagnostic Imaging Report ---
PROCEDURE: US Thyroid. TECHNIQUE: Multiple real-time grayscale images were obtained of the thyroid in various projections. INDICATION: Left thyroid mass. No prior thyroid ultrasounds available for comparison. Right lobe of thyroid measures 5.2 x 1.5 x 1.4 cm, left lobe measures 4.6 x 2.1 x 2.2 cm. Isthmus is 2 mm in thickness. Right lobe of thyroid shows homogeneous echotexture. Left lobe does contain dominant solid mass with mixed solid and cystic components, this measures 1.9 x 1.9 x 1.6 cm. This is in the mid to lower pole. A larger mass posterior to the thyroid extending inferiorly is incompletely characterized by ultrasound. This correlates with the mass noted on prior CTs. IMPRESSION: Dominant left lobe thyroid nodule. Patient is scheduled to undergo fine-needle aspiration biopsy today as well. Dictated by: Dictated on workstation # [id number]
== END ==
LOC: RAD 11:00
PROVIDERS: ATTEND Otolaryngology Otolaryngology/Facial Plastic Surgery
DX: E04.1 Nontoxic single thyroid nodule (principal)
CPT/HCPCS: 10005; 76536

== ENCOUNTER 2021-04-17 21:32 | Emergency (ER) | payer MEDICARE ==
[~2021-04-17 21:32] MED LIST changes: -LIDOCAINE 1% INJ 20 ML 20 ML VIAL INJ ONE
[2021-04-17] MEDS ORDERED: LIDOCAINE 1% INJ 20 ML 20 ML VIAL ONE (21:41)
[2021-04-17] MEDS ORDERED: LIDOCAINE 1% INJ 20 ML 20 ML VIAL INJ ONE (22:15)
[2021-04-17] MEDS ORDERED: oxyCODONE/APAP 5/325MG (PERCOCET 5) TABLET PO ONE (22:15)
--- NOTE | 2021-04-17 23:05 | Diagnostic Imaging Report ---
PROCEDURE: CT head, face, and cervical spine without contrast. TECHNIQUE: Multiple contiguous axial images were obtained through the head, neck, and facial bones without the use of intravenous contrast. Sagittal and coronal reformations through the cervical spine and facial bones were also performed. Auto Exposure Controls were utilized during the CT exam to meet ALARA standards for radiation dose reduction. INDICATION: Trauma. FINDINGS: There is prominence of the ventricles and sulci. There is no hydrocephalus. There is no midline shift. There is no mass, hemorrhage or extra-axial fluid collection. There is a comminuted fracture of the nasal bone. Zygomatic arches are intact. Pterygoid plates are intact. There is mucosal thickening in the left maxillary sinus. Remaining sinuses and mastoid air cells are clear. The mandibular alignment is normal. The lamina papyracea and orbital floors are intact. The alignment of the cervical spine is normal. There is diffuse cervical spondylosis and multilevel degenerative disc disease. Vertebral body heights are well-maintained. There is no fracture or traumatic subluxation. The odontoid is intact and the lateral masses are well aligned. IMPRESSION: Comminuted fracture of nasal bone. Atrophy and some chronic microvascular ischemic disease, however, no acute intracranial abnormality. Moderately severe cervical spondylosis and multilevel degenerative disc disease without acute fracture or traumatic subluxation. Dictated by: Dictated on workstation # [id number]
--- NOTE | 2021-04-17 23:17 | Diagnostic Imaging Report ---
INDICATION: Trauma. Comparison is made with prior examination from 04/01/2021. FINDINGS: The heart size is normal. There is mild venous congestion. There is no pleural effusion or pneumothorax. The mediastinum is unremarkable. The osseous structures are grossly unremarkable. IMPRESSION: Mild central pulmonary venous congestion. Dictated by: Dictated on workstation # [id number]
--- NOTE | 2021-04-17 23:24 | Diagnostic Imaging Report ---
INDICATION: Trauma. Three views were obtained. FINDINGS: There are postsurgical changes of the right knee arthroplasty. Hardware is in satisfactory position. There is no loosening. There is no fracture or dislocation. Soft tissues are unremarkable. IMPRESSION: Stable right knee arthroplasty Dictated by: Dictated on workstation # [id number]
--- NOTE | 2021-04-17 23:26 | Diagnostic Imaging Report ---
INDICATION: Pain. Two views were obtained. FINDINGS: There are mild degenerative changes in the right hip. The bones are osteopenic. There is no fracture or dislocation. Soft tissues are unremarkable. IMPRESSION: Osteopenia and mild degenerative changes, however, no acute fracture or dislocation. Dictated by: Dictated on workstation # [id number]
--- NOTE | 2021-04-17 23:30 | ED Head Injury ---
General Chief Complaint: Trauma-Non Activation Stated Complaint: FALL Nursing Triage Note: Pt brought in by ems with a forhead laceration. According to ems, pt was reaching over to get something and fell forward. Pt denies loc and is alert and oriented to baseline on arrival. Source: patient Exam Limitations: other (Dementia) History of Present Illness Date Seen by Provider: Apr 17, 2021 Time Seen by Provider: 23:00 Initial Comments Patient is a 76-year-old female with history of stroke, right hemiparesis and dementia who presents with an accidental fall from sitting. 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 Patient denies loss of consciousness dizziness or feeling dazed. She has a right forehead laceration, nasal contusion and complains of tenderness and swelling to her right knee. Patient is not currently on anticoagulation therapy as it was held 2 days ago due to need for colonoscopy. She denies headache, nausea vomiting or any other pain complaint at this time. History is obtained from the patient's daughter who is at bedside. Tetanus is up-to-date. Occurred: just prior to arrival Severity: mild, moderate Location: frontal Method of Injury: direct blow, fell Loss of Consciousness: no loss of consciousness Associated Systoms: Other Allergies and Home Medications Allergies Coded Allergies: Penicillins (Verified Allergy, Intermediate, rash, 12/03/18) oseltamivir (Verified Allergy, Intermediate, Vomiting, 12/03/18) Patient Home Medication List Home Medication List Reviewed: Yes Acetaminophen (Tylenol Arthritis) 650 Mg Tablet.er, 650 MG PO Q6H PRN for PAIN- MILD (1-4), (Reported) Entered as Reported by: FAY ARBOLEDA on 12/28/20 0948 Apixaban (Eliquis) 5 Mg Tablet, 5 MG PO BID Prescribed by: SERGEY RIZO on 01/02/21 1218 Docusate Sodium (Docusate Sodium) 100 Mg Capsule, 100 MG PO BID, (Reported) Entered as Reported by: FAY ARBOLEDA on 12/28/20 0948 Ergocalciferol (Vitamin D2) (Vitamin D2) 1,250 Mcg Capsule, 1,250 MCG PO BAILEY, (Reported) Entered as Reported by: YAMEL CUMMINGS on 09/30/20 1438 Lactulose (Lactulose) 20 Gm/30 Ml Solution, 30 ML PO DAILY, (Reported) Entered as Reported by: FAY ARBOLEDA on 12/28/20 0948 Levothyroxine Sodium (Euthyrox) 50 Mcg Tablet, 50 MCG PO DAILY, (Reported) Entered as Reported by: YAMEL CUMMINGS on 09/30/20 1438 Phenytoin Sodium Extended (Phenytoin Sodium Extended) 100 Mg Capsule, 300 MG PO 1800, (Reported) Entered as Reported by: YAMEL CUMMINGS on 09/30/20 1522 Polyethylene Glycol 3350 (Miralax) 17 Gm Powd.pack, 17 GM PO DAILY PRN for CONSTIPATION-2ND LINE, (Reported) Entered as Reported by: FAY ARBOLEDA on 12/28/20 0948 Quetiapine Fumarate (Seroquel) 50 Mg Tablet, 50 MG PO 1800, (Reported) Entered as Reported by: FAY ARBOLEDA on 12/28/20 0948 Review of Systems Review of Systems Constitutional: see HPI Eyes: See HPI Ears, Nose, Mouth, Throat: see HPI Respiratory: see HPI Cardiovascular: see HPI Gastrointestinal: see HPI Musculoskeletal: see HPI Skin: see HPI Psychiatric/Neurological: See HPI Endocrine: See HPI Hematologic/Lymphatic: See HPI All Other Systems Reviewed Negative Unless Noted: Yes Past Wyhywnm-Pgphle-Dwmxvb Hx Patient Social History Tobacco Use?: Yes Use of E-Cig and/or Vaping dev: No Substance use?: No Alcohol Use?: No Pt feels they are or have been: No Seasonal Allergies Seasonal Allergies: No Past Medical History Surgery/Hospitalization HX: EPILEPSY DEMENTIA PARANOID SCHIZOPHRENIA Surgeries: Yes Orthopedic Respiratory: No Cardiac: Yes High Cholesterol Neurological: Yes Dementia, Seizure Disorder Genitourinary: No Gastrointestinal: No Musculoskeletal: No Endocrine: No HEENT: No Cancer: No Psychosocial: Yes Schizophrenia, Depression Integumentary: No Blood Disorders: No Physical Exam Vital Signs Vital Signs - First Documented 04/17/21 21:34 Temp 36.5 Pulse 83 Resp 18 B/P (MAP) 142/59 (86) Pulse Ox 97 O2 Delivery Room Air Capillary Refill : Less Than 3 Seconds Height, Weight, BMI Height: 5'1.00" Weight: 160lbs. oz. 72.848841pc; 21.00 BMI Method:Stated General Appearance: WD/WN, no apparent distress HEENT: PERRL/EOMI, other (3 cm stellate right forehead laceration) Neck: non-tender, full range of motion, supple Cardiovascular: regular rate, rhythm Respiratory: lungs clear Gastrointestinal: non tender, soft Back: normal inspection Extremities: other (No deformities bruising or swelling) Psychiatric: alert Crainal Nerves: normal speech, PERRL Motor/Sensory: other (Right hemiparesis) Procedures/Interventions Wound Location: Face Other Wound Location 3 cm thickness stellate lac to R forehead Wound's Depth, Shape: stellate Wound Explored: clean Irrigated w/ Saline (ccs): 15 Betadine Prep?: No Anesthesia: 1% Lidocaine Volume Anesthetic (ccs): 3 Wound Debrided: minimal Suture: Ethlion Suture Size: 5-0 Number of Sutures: 9 (running locked) Layer Closure?: 1 Sterile Dressing Applied?: Yes Progress Wound cleansed and closed. Progress/Results/Core Measures Results/Orders My Orders Orders - EMILY LEBLANC DO Lidocaine 1% Inj 20 Ml (Xylocaine 1% Inj (04/17/21 21:41) Chest 1 View Ap/Pa Only (04/17/21 22:12) Hip 2-3 View Right (04/17/21 22:12) Knee 3 View Right (04/17/21 22:12) Oxycodone/Apap 5/325mg Tablet (Percocet (04/17/21 22:15) Lidocaine 1% Inj 20 Ml (Xylocaine 1% Inj (04/17/21 22:15) Ct Head/Face/Cervical Wo (04/17/21 22:12) Medications Given in ED Current Medications Medications Dose Ordered Sig/Horace Route Start Time Stop Time Status Last Admin Dose Admin Lidocaine HCl 20 ml ONCE ONCE INJ 04/17/21 22:15 04/17/21 22:17 DC 04/17/21 22:20 20 ML Oxycodone/ Acetaminophen 1 tab ONCE ONCE PO 04/17/21 22:15 04/17/21 22:17 DC 04/17/21 22:19 1 TAB Vital Signs/I&O 04/17/21 21:34 Temp 36.5 Pulse 83 Resp 18 B/P (MAP) 142/59 (86) Pulse Ox 97 O2 Delivery Room Air Blood Pressure Mean: 86 Departure Communication (Admissions) CT head/maxillofacial/cervical spine: comminuted nasal bone fx CXR: NAD Pelvis/R hip/R knee: no fx Wound cleansed and closed. Nasal bone fracture without evidence of intracranial or C-spine injury. No fracture evident on extremity films. Typical closed head injury and wound care instructions provided. Impression Primary Impression: Concussion Additional Impressions: Forehead laceration Nasal bone fracture Contusion, lower leg Disposition: 01 HOME, SELF-CARE Condition: Stable Departure-Patient Inst. Decision time for Depature: 23:36 Referrals: GAURAV OMER MD (PCP/Family) Primary Care Physician Patient Instructions: Nose Fracture, Laceration Repair With Stitches ED, Minor Head Injury, Adult ED Add. Discharge Instructions: Please return to the ED in 6-8 days for suture removal or sooner if signs of infection or worsening head injury. Take Tylenol as needed for pain. All discharge instructions reviewed with patient and/or family. Voiced understanding. EMILY LEBLANC DO Apr 17, 2021 23:30
[2021-04-17 23:35] VITALS: BP 129/63
== END 2021-04-17 23:56 | disposition home or self-care (01) ==
LOC: EDUNIT# 21:32 → ER FS 21:33
DX: S01.81XA Laceration without foreign body of other part of head, initial encounter (principal); S02.2XXA Fracture of nasal bones, initial encounter for closed fracture; S06.9X0A Unspecified intracranial injury without loss of consciousness, initial encounter; S80.10XA Contusion of unspecified lower leg, initial encounter
CPT/HCPCS: 70450; 70486; 71045; 72125; 73502; 73562

== ENCOUNTER → 2021-04-18 | Outpatient (CLI) | payer MEDICARE ==
[2021-04-18 15:49] LABS: HEMATOCRIT 38 % (35-52); HEMOGLOBIN 12.6 g/dL (11.5-16.0); MEAN CORPUSCULAR HEMOGLOBIN 30 pg (25-34); MEAN CORPUSCULAR HGB CONC 33 g/dL (32-36); MEAN CORPUSCULAR VOLUME 92 fL (80-99); WHITE BLOOD COUNT 7.3 10^3/uL (4.3-11.0)
[2021-04-18 15:50] LABS: MEAN PLATELET VOLUME 9.5 fL (9.0-12.2); PLATELET COUNT 215 10^3/uL (130-400)
[2021-04-18 15:53] LABS: BILIRUBIN,URINE NEGATIVE (NEGATIVE); CLARITY,URINE SL CLOUDY; COLOR,URINE YELLOW; GLUCOSE, URINE (UA) NEGATIVE (NEGATIVE); KETONES,URINE NEGATIVE (NEGATIVE); LEUKOCYTE ESTERASE ,URINE NEGATIVE (NEGATIVE); NITRITE,URINE NEGATIVE (NEGATIVE); PROTEIN,URINE NEGATIVE (NEGATIVE)
[2021-04-18 15:58] LABS: BACTERIA,URINE TRACE /HPF; RBC,URINE RARE /HPF; WBC,URINE RARE /HPF
[2021-04-18 16:09] LABS: ALBUMIN 4.1 GM/DL (3.2-4.5); BILIRUBIN,TOTAL 0.2 MG/DL (0.1-1.0); CALCIUM 9.2 MG/DL (8.5-10.1); CREATININE SERUM 0.78 MG/DL (0.60-1.30); TOTAL PROTEIN 6.5 GM/DL (6.4-8.2)
== END ==
PROVIDERS: ATTEND Family Medicine
DX: R27.9 Unspecified lack of coordination (principal)
CPT/HCPCS: 36415; 80053; 81000; 85027; 87077; 87088

== ENCOUNTER → 2021-05-14 | Outpatient (CLI) | payer MEDICARE ==
[2021-05-14 18:03] LABS: BILIRUBIN,URINE NEGATIVE (NEGATIVE); CLARITY,URINE TURBID; COLOR,URINE YELLOW; GLUCOSE, URINE (UA) NEGATIVE (NEGATIVE); KETONES,URINE NEGATIVE (NEGATIVE); LEUKOCYTE ESTERASE ,URINE 1+ (NEGATIVE); NITRITE,URINE NEGATIVE (NEGATIVE); PROTEIN,URINE NEGATIVE (NEGATIVE)
[2021-05-14 18:32] LABS: AMORPHOUS SEDIMENT,UR MOD AMOR URATES /LPF; BACTERIA,URINE LARGE /HPF; CALCIUM OXALATE CRYSTALS,UR MODERATE /LPF; SQUAMOUS EPITHELIAL CELL,UR 0-2 /HPF
== END ==
PROVIDERS: ATTEND Family Medicine
DX: R30.0 Dysuria (principal)
CPT/HCPCS: 81000; 87088

== ENCOUNTER 2021-05-23 17:19 | Emergency (ER) | payer MEDICARE ==
--- NOTE | 2021-05-23 17:40 | ED General ---
General Chief Complaint: Trauma-Non Activation Source of Information: Patient History of Present Illness Date Seen by Provider: May 23, 2021 Time Seen by Provider: 17:20 Initial Comments 76-year-old female presenting from [facility] where she was found on the floor and they were unsure if she had a seizure or if she had a stroke and fallen on the floor. She has a history of prior seizures and prior strokes. She also was recently diagnosed with COVID 6 days ago. She has a hematoma to her left frontal scalp area. EMS states that she was waking up and speaking to them but that she did have some confusion. She does have baseline confusion and dementia. She was having stable vital signs and did not have any difficulty breathing. She has chronic weakness to the right side of her body. Timing/Duration: 1-3 Hours Severity: Mild Associated Systoms: No Chest Pain; Cough; No Diaphoresis, No Fever/Chills; Headaches; No Nausea/Vomiting; Seizure; No Shortness of Air Allergies and Home Medications Allergies Coded Allergies: Penicillins (Verified Allergy, Intermediate, rash, 12/03/18) oseltamivir (Verified Allergy, Intermediate, Vomiting, 12/03/18) meloxicam (Verified Allergy, Unknown, 05/23/21) Patient Home Medication List Home Medication List Reviewed: Yes Acetaminophen (Tylenol Arthritis) 650 Mg Tablet.er, 650 MG PO Q6H PRN for PAIN- MILD (1-4), (Reported) Entered as Reported by: FAY ARBOLEDA on 12/28/2048 Apixaban (Eliquis) 5 Mg Tablet, 5 MG PO BID Prescribed by: SERGEY RIZO on 01/02/21 1218 Docusate Sodium (Docusate Sodium) 100 Mg Capsule, 100 MG PO BID, (Reported) Entered as Reported by: FAY ARBOLEDA on 12/28/20 0948 Ergocalciferol (Vitamin D2) (Vitamin D2) 1,250 Mcg Capsule, 1,250 MCG PO THUR, (Reported) Entered as Reported by: YAMEL CUMMINGS on 09/30/20 1438 Lactulose (Lactulose) 20 Gm/30 Ml Solution, 30 ML PO DAILY, (Reported) Entered as Reported by: FAY ARBOLEDA on 12/28/20 0948 Levothyroxine Sodium (Euthyrox) 50 Mcg Tablet, 50 MCG PO DAILY, (Reported) Entered as Reported by: YAMEL CUMMINGS on 09/30/20 1438 Phenytoin Sodium Extended (Phenytoin Sodium Extended) 100 Mg Capsule, 300 MG PO 1800, (Reported) Entered as Reported by: YAMEL CUMMINGS on 09/30/20 1522 Polyethylene Glycol 3350 (Miralax) 17 Gm Powd.pack, 17 GM PO DAILY PRN for CONSTIPATION-2ND LINE, (Reported) Entered as Reported by: FAY ARBOLEDA on 12/28/20 0948 Quetiapine Fumarate (Seroquel) 50 Mg Tablet, 50 MG PO 1800, (Reported) Entered as Reported by: FAY ARBOLEDA on 12/28/20 0948 Review of Systems Review of Systems Constitutional: No chills, No fever; malaise EENTM: nose congestion Respiratory: No stridor, No wheezing Cardiovascular: No chest pain Gastrointestinal: No nausea, No vomiting Genitourinary: no symptoms reported Musculoskeletal: no symptoms reported Skin: see HPI Psychiatric/Neurological: See HPI Difficult to obtain history from patient as she has dementia and trouble communicating Past Wpxqesu-Cqzpnh-Zzzqeq Hx Patient Social History Tobacco Use?: No Use of E-Cig and/or Vaping dev: No Substance use?: No Alcohol Use?: No Seasonal Allergies Seasonal Allergies: No Past Medical History Surgery/Hospitalization HX: EPILEPSY DEMENTIA PARANOID SCHIZOPHRENIA Surgeries: Yes Orthopedic Respiratory: No Cardiac: Yes High Cholesterol Neurological: Yes Dementia, Seizure Disorder Genitourinary: No Gastrointestinal: No Musculoskeletal: No Endocrine: No HEENT: No Cancer: No Psychosocial: Yes Schizophrenia, Depression Integumentary: No Blood Disorders: No Physical Exam Vital Signs Vital Signs - First Documented 05/23/21 17:27 Temp 36.2 Pulse 95 Resp 18 B/P (MAP) 159/92 (114) Pulse Ox 98 O2 Delivery Room Air Capillary Refill : Height, Weight, BMI Height: 5'1.00" Weight: 160lbs. oz. [id number]; 21.00 BMI Method:Stated General Appearance: No Apparent Distress, Chronically ill HEENT: PERRL/EOMI, Pharynx Normal Neck: Full Range of Motion, Supple Respiratory: Chest Non Tender, Lungs Clear, Normal Breath Sounds, No Accessory Muscle Use, No Respiratory Distress Cardiovascular: Regular Rate, Rhythm, Normal Peripheral Pulses Gastrointestinal: Normal Bowel Sounds, No Pulsatile Mass, Non Tender, Soft Rectal: Deferred Extremity: Normal Capillary Refill, No Pedal Edema Neurologic/Psychiatric: Alert; No Oriented x3 (oriented to self only) Skin: Warm/Dry, Ecchymosis (hematoma and bruise to left frontal scalp) Procedures/Interventions Suture Size: 5-0 Progress/Results/Core Measures Suspected Sepsis SIRS Temperature: Pulse: Respiratory Rate: Laboratory Tests 05/23/21 17:30: White Blood Count 7.8 Blood Pressure / Mean: Laboratory Tests 05/23/21 17:30: Creatinine 0.74, Platelet Count 216, Total Bilirubin 0.2 05/23/21 18:00: INR Comment 1.0 Results/Orders Lab Results Laboratory Tests Test 05/23/21 17:30 05/23/21 18:00 05/23/21 18:40 Range/Units White Blood Count 7.8 4.3-11.0 10^3/uL Red Blood Count 4.40 3.80-5.11 10^6/uL Hemoglobin 13.2 11.5-16.0 g/dL Hematocrit 40 35-52 % Mean Corpuscular Volume 91 80-99 fL Mean Corpuscular Hemoglobin 30 25-34 pg Mean Corpuscular Hemoglobin Concent 33 32-36 g/dL Red Cell Distribution Width 12.6 10.0-14.5 % Platelet Count 216 130-400 10^3/uL Mean Platelet Volume 9.3 9.0-12.2 fL Immature Granulocyte % (Auto) 1 % Neutrophils (%) (Auto) 65 42-75 % Lymphocytes (%) (Auto) 25 12-44 % Monocytes (%) (Auto) 8 0-12 % Eosinophils (%) (Auto) 1 0-10 % Basophils (%) (Auto) 1 0-10 % Neutrophils # (Auto) 5.1 1.8-7.8 10^3/uL Lymphocytes # (Auto) 1.9 1.0-4.0 10^3/uL Monocytes # (Auto) 0.6 0.0-1.0 10^3/uL Eosinophils # (Auto) 0.1 0.0-0.3 10^3/uL Basophils # (Auto) 0.0 0.0-0.1 10^3/uL Immature Granulocyte # (Auto) 0.1 0.0-0.1 10^3/uL Sodium Level 141 135-145 MMOL/L Potassium Level 4.2 3.6-5.0 MMOL/L Chloride Level 104 98-107 MMOL/L Carbon Dioxide Level 26 21-32 MMOL/L Anion Gap 11 5-14 MMOL/L Blood Urea Nitrogen 18 7-18 MG/DL Creatinine 0.74 0.60-1.30 MG/DL Estimat Glomerular Filtration Rate 84 BUN/Creatinine Ratio 24 Glucose Level 140 H 70-105 MG/DL Calcium Level 9.3 8.5-10.1 MG/DL Corrected Calcium 9.2 8.5-10.1 MG/DL Total Bilirubin 0.2 0.1-1.0 MG/DL Aspartate Amino Transf (AST/SGOT) 45 H 5-34 U/L Alanine Aminotransferase (ALT/SGPT) 60 H 0-55 U/L Alkaline Phosphatase 90 40-136 U/L Troponin I < 0.30 <0.30 NG/ML Total Protein 7.0 6.4-8.2 GM/DL Albumin 4.1 3.2-4.5 GM/DL Salicylates Level < 0.3 L 5.0-20.0 MG/DL Acetaminophen Level < 10 L 10-30 UG/ML Serum Alcohol < 10 <10 MG/DL Prothrombin Time 13.3 12.2-14.7 SEC INR Comment 1.0 0.8-1.4 Activated Partial Thromboplast Time 27 24-35 SEC Urine Color YELLOW Urine Clarity CLEAR Urine pH 6.0 5-9 Urine Specific [place] >=1.030 1.016-1.022 Urine Protein NEGATIVE NEGATIVE Urine Glucose (UA) NEGATIVE NEGATIVE Urine Ketones NEGATIVE NEGATIVE Urine Nitrite NEGATIVE NEGATIVE Urine Bilirubin NEGATIVE NEGATIVE Urine Urobilinogen 0.2 < = 1.0 MG/DL Urine Leukocyte Esterase NEGATIVE NEGATIVE Urine RBC (Auto) TRACE-I H NEGATIVE Urine RBC RARE /HPF Urine WBC RARE /HPF Urine Squamous Epithelial Cells 0-2 /HPF Urine Crystals NONE /LPF Urine Bacteria NEGATIVE /HPF Urine Casts PRESENT /LPF Urine Hyaline Casts RARE /LPF Urine Mucus SMALL H /LPF Urine Culture Indicated NO Urine Opiates Screen NEGATIVE NEGATIVE Urine Oxycodone Screen NEGATIVE NEGATIVE Urine Methadone Screen NEGATIVE NEGATIVE Urine Propoxyphene Screen NEGATIVE NEGATIVE Urine Barbiturates Screen POSITIVE H NEGATIVE Ur Tricyclic Antidepressants Screen NEGATIVE NEGATIVE Urine Phencyclidine Screen NEGATIVE NEGATIVE Urine Amphetamines Screen NEGATIVE NEGATIVE Urine Methamphetamines Screen NEGATIVE NEGATIVE Urine Benzodiazepines Screen POSITIVE H NEGATIVE Urine Cocaine Screen NEGATIVE NEGATIVE Urine Cannabinoids Screen NEGATIVE NEGATIVE My Orders Orders - ALEJANDRO REHMAN MD Ua Culture If Indicated (05/23/21 17:36) Cbc With Automated Diff (05/23/21 17:36) Comprehensive Metabolic Panel (05/23/21 17:36) Alcohol (05/23/21 17:36) Drug Screen Stat (Urine) (05/23/21 17:36) Acetaminophen (05/23/21 17:36) Salicylate (05/23/21 17:36) Ed Iv/Invasive Line Start (05/23/21 17:36) Monitor-Rhythm Ecg Trace Only (05/23/21 17:36) Chest 1 View Ap/Pa Only (05/23/21 17:36) Protime With Inr (05/23/21 17:36) Partial Thromboplastin Time (05/23/21 17:36) Troponin I Fs (05/23/21 17:36) Ct Head/Cervical Spine Wo (05/23/21 17:36) Dilantin (Phenytoin) (05/23/21 18:33) Vital Signs/I&O 05/23/21 05/23/21 05/23/21 17:27 19:00 19:55 Temp 36.2 Pulse 95 71 72 Resp 18 22 15 B/P (MAP) 159/92 (114) 124/69 125/67 Pulse Ox 98 100 99 O2 Delivery Room Air Room Air Room Air Capillary Refill : Progress Note #1: Progress Note Obtain general labs as well as CT scan of her head and cervical spine and chest x-ray. Urinalysis to look for signs of infection. Patient appears to be at b aseline on arrival to the ED and sounds like she may have had a seizure and fall onto the floor that the halfway. If there is no sign of acute new infection or acute significant lab abnormality or skull fracture with bleeding then she likely could be returned to [facility] for continuing on her regular medications. Progress Note #2: Progress Note Labs appear stable without acute significant abnormality. CT scan of her head and cervical spine did not show any acute fracture or intracranial hemorrhage. She had some fluid buildup in her sinuses. She does have a hematoma to the left frontal scalp area. There is no definite acute fracture of her cervical spine. Chest x-ray appears stable and chronic no acute process. She had no signs of an acute infection on her urinalysis and there were no drugs of abuse. She remained hemodynamically stable here in the ED and had no further acute complications. Again she appeared to be at her baseline and seems as though she may have had a seizure. Her family called and requested a Dilantin level since she had not had a seizure for a long time. Since he is having recent COVID infection diagnosed 6 days ago this could be lowering her seizure threshold. Diagnostic Imaging Diagonstic Imaging: CT Plain Films/CT/US/NM/MRI: c-spine, head Comments NAME: RUFINO BILLY [facility] REC#: [id number] PT STATUS: REG ER : 1945 PHYSICIAN: ALEJANDRO REHMAN MD ADMIT DATE: 05/23/21/ER FS Signed Date of Exam:05/23/21 CT HEAD/CERVICAL SPINE WO PROCEDURE: CT head and CT cervical spine without contrast. TECHNIQUE: Multiple contiguous axial images were obtained through the brain and cervical spine without the use of intravenous contrast. Sagittal and coronal reformations through the cervical spine were then performed. Auto Exposure Controls were utilized during the CT exam to meet ALARA standards for radiation dose reduction. INDICATION: Seizures, resultant head injury with hematoma on the left. COMPARISON: CT head and cervical spine performed 04/17/2021. CT HEAD: Left frontal scalp injury present. The underlying calvarium appears intact. There is no hemosinus. Bilateral nasal bone fracture deformities stable from prior. There is a shallow air-fluid level in the left maxillary sinus, low in density with mild ethmoid air cell membrane thickening, greater left. This is believed to be all on an inflammatory basis. There is lobular membrane thickening in the maxillary sinuses, inferiorly. The mastoid air cells and middle ear cavities are clear. There is no calvarial fracture deformity. There is no cerebral edema. There is no hemorrhage. There are no abnormal extra-axial fluid collections. Some background atrophy and white matter small vessel disease are stable and chronic. No evidence for elevated pressures. CT CERVICAL SPINE: Severe degenerative changes to the discs, endplates and facets throughout the cervical spine, chronic. The alignment is stable. There is no cervical fracture or paraspinal hemorrhage. No facet joint dislocation. The craniocervical relationship appears intact. The central skull base is intact. There are carotid vascular calcifications, chronic. Hypertrophic degenerative changes result in moderate to severe multilevel canal stenoses at the C2-C3, C3-C4, C4-C5, C5-C6 and C6-C7 levels with a multilevel moderate and moderate to severe foraminal stenoses chronic. IMPRESSION: 1. CT head: Left frontal scalp injury but no calvarial fracture. Paranasal sinus membrane thickening as well as low-density air-fluid level in the left maxillary believed to reflect sinusitis. There is chronic nasal bone fracture deformities with no acute facial fracture or features suggestive of hemo-sinus. No intracranial hemorrhage. Stable chronic senescent findings in the brain. 2. CT cervical spine: Stable chronic degenerative changes and multilevel chronic stenoses. No fracture or traumatic malalignment. Dictated by: Dictated on workstation # [id number] Dict: 05/23/211806 Trans: 05/23/211821 PJRani [id number] Interpreted by: NANI STANLEY Electronically signed by: NANI STANLEY 05/23/211821 Reviewed: Reviewed by Me Diagonstic Imaging: Xray Plain Films/CT/US/NM/MRI: chest Comments [facility] [place] NAME: MARIAJOSERUFINO [facility] REC#: [id number] PT STATUS: REG ER : 1945 PHYSICIAN: ALEJANDRO REHMAN MD ADMIT DATE: 05/23/21/ER FS Signed Date of Exam:05/23/21 CHEST 1 VIEW AP/PA ONLY INDICATION: Covid patient, seizure and confusion. COMPARISON: 04/17/2021. FINDINGS: No focal consolidation, failure, effusion, pneumothorax or infiltrate found. No evidence for edema. IMPRESSION: No acute appearing abnormality. Dictated by: Dictated on workstation # [id number] Dict: 05/23/211817 Trans: 05/23/211841 PJE [id number] Interpreted by: NANI STANLEY Electronically signed by: NANI STANLEY 05/23/211841 Reviewed: Reviewed by Me Departure Impression Primary Impression: Seizure disorder Additional Impressions: Traumatic hematoma of scalp Qualified Codes: S00.03XA - Contusion of scalp, initial encounter Confusion COVID-19 virus infection Disposition: HOME, SELF-CARE Condition: Stable Departure-Patient Inst. Decision time for Depature: 19:01 Referrals: GAURAV OMER MD (PCP/Family) Primary Care Physician Patient Instructions: Seizures, Adult ED, Minor Contusion ED Add. Discharge Instructions: Continue on your regular medications. Follow-up with your regular provider about having a recurrent seizure. This may be due to having a lower threshold while you are fighting an infection such as Covid. Your blood work and tests otherwise did not show any signs of an acute stroke or any acute new findings. A Dilantin level was sent but will not be back for at least a day or 2. Follow- up with your regular provider to get this result and see if any adjustments need to be made with your medication dosing All discharge instructions reviewed with patient and/or family. Voiced understanding. ALEJANDRO REHMAN MD May 23, 2021 17:40
[2021-05-23 17:45] LABS: BASOPHILS % (AUTO) 1 % (0-10); EOSINOPHILS # (AUTO) 0.1 10^3/uL (0.0-0.3); EOSINOPHILS % (AUTO) 1 % (0-10); HEMATOCRIT 40 % (35-52); HEMOGLOBIN 13.2 g/dL (11.5-16.0); LYMPHOCYTES # (AUTO) 1.9 10^3/uL (1.0-4.0); LYMPHOCYTES % (AUTO) 25 % (12-44); MEAN CORPUSCULAR HEMOGLOBIN 30 pg (25-34); MEAN CORPUSCULAR HGB CONC 33 g/dL (32-36); MEAN CORPUSCULAR VOLUME 91 fL (80-99); MEAN PLATELET VOLUME 9.3 fL (9.0-12.2); MONOCYTES # (AUTO) 0.6 10^3/uL (0.0-1.0); MONOCYTES % (AUTO) 8 % (0-12); NEUTROPHILS # (AUTO) 5.1 10^3/uL (1.8-7.8); NEUTROPHILS % (AUTO) 65 % (42-75); PLATELET COUNT 216 10^3/uL (130-400); WHITE BLOOD COUNT 7.8 10^3/uL (4.3-11.0)
[2021-05-23 18:07] LABS: BUN/CREATININE RATIO 24; CARBON DIOXIDE 26 MMOL/L (21-32); CHLORIDE 104 MMOL/L (98-107); CREATININE SERUM 0.74 MG/DL (0.60-1.30); GFR ESTIMATED 84; POTASSIUM 4.2 MMOL/L (3.6-5.0); SODIUM 141 MMOL/L (135-145)
[2021-05-23 18:08] LABS: ALANINE AMINOTRANSFERASE 60 U/L (0-55); ALBUMIN 4.1 GM/DL (3.2-4.5); ALKALINE PHOSPHATASE 90 U/L (40-136); BILIRUBIN,TOTAL 0.2 MG/DL (0.1-1.0); CALCIUM 9.3 MG/DL (8.5-10.1); GLUCOSE 140 MG/DL (70-105); SALICYLATE < 0.3 MG/DL (5.0-20.0)
[2021-05-23 18:09] LABS: ACETAMINOPHEN < 10 UG/ML (10-30)
--- NOTE | 2021-05-23 18:22 | Diagnostic Imaging Report ---
PROCEDURE: CT head and CT cervical spine without contrast. TECHNIQUE: Multiple contiguous axial images were obtained through the brain and cervical spine without the use of intravenous contrast. Sagittal and coronal reformations through the cervical spine were then performed. Auto Exposure Controls were utilized during the CT exam to meet ALARA standards for radiation dose reduction. INDICATION: Seizures, resultant head injury with hematoma on the left. COMPARISON: CT head and cervical spine performed 04/17/2021. CT HEAD: Left frontal scalp injury present. The underlying calvarium appears intact. There is no hemosinus. Bilateral nasal bone fracture deformities stable from prior. There is a shallow air-fluid level in the left maxillary sinus, low in density with mild ethmoid air cell membrane thickening, greater left. This is believed to be all on an inflammatory basis. There is lobular membrane thickening in the maxillary sinuses, inferiorly. The mastoid air cells and middle ear cavities are clear. There is no calvarial fracture deformity. There is no cerebral edema. There is no hemorrhage. There are no abnormal extra-axial fluid collections. Some background atrophy and white matter small vessel disease are stable and chronic. No evidence for elevated pressures. CT CERVICAL SPINE: Severe degenerative changes to the discs, endplates and facets throughout the cervical spine, chronic. The alignment is stable. There is no cervical fracture or paraspinal hemorrhage. No facet joint dislocation. The craniocervical relationship appears intact. The central skull base is intact. There are carotid vascular calcifications, chronic. Hypertrophic degenerative changes result in moderate to severe multilevel canal stenoses at the C2-C3, C3-C4, C4-C5, C5-C6 and C6-C7 levels with a multilevel moderate and moderate to severe foraminal stenoses chronic. IMPRESSION: 1. CT head: Left frontal scalp injury but no calvarial fracture. Paranasal sinus membrane thickening as well as low-density air-fluid level in the left maxillary believed to reflect sinusitis. There is chronic nasal bone fracture deformities with no acute facial fracture or features suggestive of hemo-sinus. No intracranial hemorrhage. Stable chronic senescent findings in the brain. 2. CT cervical spine: Stable chronic degenerative changes and multilevel chronic stenoses. No fracture or traumatic malalignment. Dictated by: Dictated on workstation # [id number]
[2021-05-23 18:23] LABS: PROTHROMBIN TIME PATIENT 13.3 SEC (12.2-14.7)
--- NOTE | 2021-05-23 18:26 | Diagnostic Imaging Report ---
INDICATION: Covid patient, seizure and confusion. COMPARISON: 04/17/2021. FINDINGS: No focal consolidation, failure, effusion, pneumothorax or infiltrate found. No evidence for edema. IMPRESSION: No acute appearing abnormality. Dictated by: Dictated on workstation # [id number]
[2021-05-23 18:48] LABS: BILIRUBIN,URINE NEGATIVE (NEGATIVE); CLARITY,URINE CLEAR; COLOR,URINE YELLOW; GLUCOSE, URINE (UA) NEGATIVE (NEGATIVE); KETONES,URINE NEGATIVE (NEGATIVE); LEUKOCYTE ESTERASE ,URINE NEGATIVE (NEGATIVE); NITRITE,URINE NEGATIVE (NEGATIVE); PROTEIN,URINE NEGATIVE (NEGATIVE)
[2021-05-23 18:56] LABS: BACTERIA,URINE NEGATIVE /HPF; HYALINE CASTS, URINE RARE /LPF; RBC,URINE RARE /HPF; SQUAMOUS EPITHELIAL CELL,UR 0-2 /HPF; WBC,URINE RARE /HPF
[2021-05-23 18:59] LABS: AMPHETAMINE SCREEN, URINE NEGATIVE (NEGATIVE); BARBITURATE SCREEN URINE POSITIVE (NEGATIVE); BENZODIAZEPINES SCREEN URINE POSITIVE (NEGATIVE); CANNABINOID SCREEN, URINE NEGATIVE (NEGATIVE); COCAINE SCREEN URINE NEGATIVE (NEGATIVE); METHADONE STAT NEGATIVE (NEGATIVE); METHAMPHETAMINE SCREEN URINE S NEGATIVE (NEGATIVE); OPIATE SCREEN URINE NEGATIVE (NEGATIVE); OXYCODONE STAT NEGATIVE (NEGATIVE); PROPOXYPHENE STAT NEGATIVE (NEGATIVE); TRICYCLIC ANTIDEPRESSANTS SCRE NEGATIVE (NEGATIVE)
[2021-05-23 19:55] VITALS: BP 125/67
[2021-05-23] MEDS ORDERED: LEVE500T6 PO ×2 (22:39→22:45)
== END 2021-05-23 19:55 | disposition home or self-care (01) ==
LOC: EDUNIT# 17:19 → ER FS 17:20
DX: U07.1 COVID-19 (principal); S00.03XA Contusion of scalp, initial encounter; G40.909 Epilepsy, unspecified, not intractable, without status epilepticus; R41.0 Disorientation, unspecified; F20.9 Schizophrenia, unspecified; F32.9 Major depressive disorder, single episode, unspecified; F03.90 Unspecified dementia, unspecified severity, without behavioral disturbance, psychotic disturbance, mood disturbance, and anxiety; Z79.01 Long term (current) use of anticoagulants; Z79.899 Other long term (current) drug therapy; W19.XXXA Unspecified fall, initial encounter
CPT/HCPCS: 36415; 51702; 70450; 71045; 72125; 80053; 80185; 80306; 81000; 84484; 85025; 85610; 85730; 93041; 99284; G0480 ×3; 80320; 80329

== ENCOUNTER 2021-05-23 20:49 | Emergency (ER) | payer MEDICARE ==
[2021-05-23] MEDS ORDERED: NS IV 1000 ML 1,000 ML IV STA (20:57)
--- NOTE | 2021-05-23 21:41 | ED General ---
General Chief Complaint: Neurological Problems Stated Complaint: SEIZURE Source of Information: Patient, EMS, Senior Living Records, Old Records Exam Limitations: Other (dementia) History of Present Illness Date Seen by Provider: May 23, 2021 Time Seen by Provider: 20:49 Initial Comments 76-year-old female presenting again from [facility]. She reportedly had another seizure after arriving back at the facility. She had been here in the emergency department for several hours after a seizure earlier this evening. She had been stable and had not had any seizure activity here in the ED. Her tested all appeared at baseline with some mild dehydration based off of elevated specific gravity. Counseled previously that the Covid infection diagnosed 6 days ago may be contributing to her having seizures or lower seizure threshold due to the recent infection. Counseled to check back with clinc and pcp. However, she had a recurrent seizure after getting back to the [place] and even though she has a history of seizures and was advised she could have additional seizures they sent her back to the ED. Patient has no complaints on exam. she is awake, alert and answering questions the same way as when she was here on pr evious visit. No new deficits appreciated. Associated Systoms: No Chest Pain, No Cough, No Diaphoresis, No Fever/Chills; Headaches, Loss of Appetite; No Nausea/Vomiting; Seizure; No Shortness of Air, No Syncope, No Weakness Allergies and Home Medications Allergies Coded Allergies: Penicillins (Verified Allergy, Intermediate, rash, 12/03/18) oseltamivir (Verified Allergy, Intermediate, Vomiting, 12/03/18) meloxicam (Verified Allergy, Unknown, 05/23/21) Patient Home Medication List Home Medication List Reviewed: Yes Acetaminophen (Tylenol Arthritis) 650 Mg Tablet.er, 650 MG PO Q6H PRN for PAIN- MILD (1-4), (Reported) Entered as Reported by: FAY ARBOLEDA on 12/28/20947 Apixaban (Eliquis) 5 Mg Tablet, 5 MG PO BID Prescribed by: SERGEY RIZO on 01/02/21 1218 Docusate Sodium (Docusate Sodium) 100 Mg Capsule, 100 MG PO BID, (Reported) Entered as Reported by: FAY ARBOLEDA on 12/28/20947 Ergocalciferol (Vitamin D2) (Vitamin D2) 1,250 Mcg Capsule, 1,250 MCG PO THUR, (Reported) Entered as Reported by: YAEML CUMMINGS on 09/30/20 1438 Lactulose (Lactulose) 20 Gm/30 Ml Solution, 30 ML PO DAILY, (Reported) Entered as Reported by: FAY ARBOLEDA on 12/28/20 0948 Levetiracetam (Levetiracetam) 500 Mg Tablet, 500 MG PO Q12H Prescribed by: ALEJANDRO REHMAN on 05/23/21 2245 Levothyroxine Sodium (Euthyrox) 50 Mcg Tablet, 50 MCG PO DAILY, (Reported) Entered as Reported by: YAMEL CUMMINGS on 09/30/20 1438 Phenytoin Sodium Extended (Phenytoin Sodium Extended) 100 Mg Capsule, 300 MG PO 1800, (Reported) Entered as Reported by: YAMEL CUMMINGS on 09/30/20 1522 Polyethylene Glycol 3350 (Miralax) 17 Gm Powd.pack, 17 GM PO DAILY PRN for CONSTIPATION-2ND LINE, (Reported) Entered as Reported by: FAY ARBOLEDA on 12/28/20 09 Quetiapine Fumarate (Seroquel) 50 Mg Tablet, 50 MG PO 1800, (Reported) Entered as Reported by: FAY ARBOLEDA on 12/28/20947 Review of Systems Review of Systems Constitutional: No chills, No fever EENTM: nose congestion Respiratory: no symptoms reported Cardiovascular: no symptoms reported Gastrointestinal: no symptoms reported Genitourinary: No dysuria Musculoskeletal: no symptoms reported Skin: see HPI, change in color (Bruising to left frontal scalp where she has a hematoma from hitting her head earlier today) Psychiatric/Neurological: Pre-Existing Deficit (Chronic dementia and is oriented to self only.); Denies Seizure Past Pvrkvic-Wnwdjg-Zecdsc Hx Seasonal Allergies Seasonal Allergies: No Past Medical History Surgery/Hospitalization HX: epilepsy,dementia,schizophrenia, sleep apnea, PE, COVID-19 Surgeries: Yes Orthopedic Respiratory: No Cardiac: Yes High Cholesterol Neurological: Yes Dementia, Seizure Disorder Genitourinary: No Gastrointestinal: No Musculoskeletal: No Endocrine: No HEENT: No Cancer: No Psychosocial: Yes Schizophrenia, Depression Integumentary: No Blood Disorders: No Physical Exam Vital Signs Vital Signs - First Documented 05/23/21 20:52 Temp 36.3 Pulse 84 Resp 20 B/P (MAP) 131/86 (101) Pulse Ox 98 O2 Delivery Room Air Capillary Refill : Height, Weight, BMI Height: 5'1.00" Weight: 160lbs. oz. [id number]; 21.00 BMI Method:Stated General Appearance: No Apparent Distress, Chronically ill Eyes: Bilateral Eye PERRL, Bilateral Eye EOMI HEENT: Pharynx Normal, Other (Negative avalos sign, negative raccoon sign, negative hemotympanum. No CSF otorrhea no CSF rhinorrhea) Neck: Full Range of Motion, Normal Inspection, Non Tender, Supple Respiratory: Chest Non Tender, Lungs Clear, Normal Breath Sounds, No Accessory Muscle Use, No Respiratory Distress Cardiovascular: Regular Rate, Rhythm, Normal Peripheral Pulses Gastrointestinal: Normal Bowel Sounds, No Pulsatile Mass, Non Tender, Soft Rectal: Deferred Extremity: Normal Capillary Refill, Normal Inspection Neurologic/Psychiatric: Alert; No Oriented x3 (Oriented to self only) Skin: Warm/Dry Procedures/Interventions Suture Size: 5-0 Progress/Results/Core Measures Suspected Sepsis SIRS Temperature: Pulse: Respiratory Rate: Blood Pressure / Mean: Results/Orders My Orders Orders - ALEJANDRO REHMAN MD Ed Iv/Invasive Line Start (05/23/21 20:57) Levetiracetam Injection (Keppra Injectio (05/23/21 20:57) Ns Iv 1000 Ml (Sodium Chloride 0.9%) (05/23/21 20:57) Vital Signs/I&O 05/23/21 05/23/21 05/23/21 20:52 22:00 22:45 Temp 36.3 Pulse 84 88 72 Resp 20 18 16 B/P (MAP) 131/86 (101) 123/77 136/64 Pulse Ox 98 97 95 O2 Delivery Room Air Room Air Room Air Capillary Refill : Progress Note #1: Progress Note Patient at baseline on arrival to the ED. Discussed with Dr. Rizo the on-call provider for [facility] since patient's primary care provider is Dr. Omer. She recommends loading patient with 1 gram of Keppra IV and then continue with 500 mg BID. Call PCP in am about seizures and her medicines With recent Covid she could have lower seizure threshold but hopefully with loading her with additional medicine for seizures could help prevent further worsening her condition. Given IVF 1 L NS bolus to help with hydration as well since her Urine specific gravity was elevated when she was last here Progress Note #2: Progress Note Patient tolerated the loading dose of Keppra without complication. She also received a liter bolus of normal saline. She had no seizure activity while here in the ED. Will discharge back to medical [place] and send prescription of Keppra 500 mg twice a day Departure Impression Primary Impression: Seizure disorder Additional Impression: COVID-19 virus infection Disposition: 01 HOME, SELF-CARE Condition: Stable Departure-Patient Inst. Decision time for Depature: 22:44 Referrals: GAURAV OMER MD (PCP/Family) Primary Care Physician Patient Instructions: Seizures, Adult ED, COVID-19 ED Add. Discharge Instructions: Resume regular medicines. She was given a loading dose of Keppra for additional seizure coverage. Start Keppra 500 mg every 12 hours to help prevent seizures, especially while she is in more acute phase of Covid infection. Encourage fluids and hydration Check with clinic for continued problems All discharge instructions reviewed with patient and/or family. Voiced understanding. Scripts Levetiracetam (Levetiracetam) 500 Mg Tablet 500 MG PO Q12H for Seizures for 30 Days, #60 TAB 0 Refills Prov: ALEJANDRO REHMAN MD 05/23/21 ALEJANDRO REHMAN MD May 23, 2021 21:41
[2021-05-23] MEDS ORDERED: LEVE500T6 PO ×2 (22:39→22:45)
[2021-05-23 22:45] VITALS: BP 136/64
== END 2021-05-23 23:30 | disposition home or self-care (01) ==
LOC: EDUNIT# 20:49 → ER FS 20:50
DX: U07.1 COVID-19 (principal); G40.909 Epilepsy, unspecified, not intractable, without status epilepticus; F03.90 Unspecified dementia, unspecified severity, without behavioral disturbance, psychotic disturbance, mood disturbance, and anxiety; G47.30 Sleep apnea, unspecified; F32.9 Major depressive disorder, single episode, unspecified; F20.9 Schizophrenia, unspecified; Z86.711 Personal history of pulmonary embolism; Z79.01 Long term (current) use of anticoagulants; Z79.899 Other long term (current) drug therapy

== ENCOUNTER → 2021-07-05 | Outpatient (CLI) | payer MEDICARE ==
[~2021-07-05] MED LIST changes: +CATHETER FLUSH 10 ML SYR IV PRN; +HOLD METFORMIN - RECEIVED CONTRAST 20 ML VIAL IV SCH; +IOHEXOL 350 MG/ML 100 ML (OMNIPAQUE 350) VIAL IV ONE; +LEVE500T6 PO; +NS 100 ML (IVPB) BAG IV ONE
[2021-07-05 09:31] LABS: CREATININE SERUM 0.51 MG/DL (0.60-1.30)
--- NOTE | 2021-07-05 10:33 | Diagnostic Imaging Report ---
PROCEDURE: CT neck soft tissue with contrast. TECHNIQUE: Multiple contiguous axial images were obtained through the neck after the administration of contrast. Auto Exposure Controls were utilized during the CT exam to meet ALARA standards for radiation dose reduction. INDICATION: Neck mass. Thyroid nodule. COMPARISON: 04/16/2021. 04/01/2021. Findings: The large heterogeneous, exophytic nodule off the inferior pole of the left lobe of the thyroid is again seen measuring 3.7 x 3.2 cm and 3.5 cm craniocaudal, previously measuring 1.9 x 1.9 x 1.6 cm on the thyroid ultrasound. A smaller nodule is seen within the midportion of the left lobe of the thyroid measuring 1.2 cm. The posterior nasopharynx and oropharynx demonstrate appropriate symmetry. There is no displacement of the parapharyngeal fat planes. There is no abnormal process evident within the prevertebral or retropharyngeal space. There is no evidence of abnormal thickening of the epiglottis or aryepiglottic folds. The vocal folds appear symmetric. The parotid and submandibular glands are unremarkable. No pathologically enlarged cervical lymph nodes are evident. No focal inflammatory changes are demonstrated. The vascular structures the neck demonstrate no evidence of high-grade stenosis on this nondedicated exam. The visualized lung apices are clear. The visualized intracranial contents demonstrate no evidence of pathologic intracranial enhancement or intracranial mass effect. Visualized orbital contents are unremarkable. The visualized paranasal sinuses are clear. The mastoids and middle ears are clear. No acute osseous abnormality in the cervical spine. Advanced degenerative changes are seen in the left TMJ. Impression: 1. Interval increase in size in the large heterogeneous exophytic nodule off the inferior pole of the left lobe of the thyroid. Recommend correlation with pathology results from the recent thyroid FNA and TSH levels. Continued follow-up is recommended. 2. No pathologically enlarged lymphadenopathy in the neck. 3. No mass or fluid collection in the aerodigestive tract. No airway compromise. 4. 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 Dictated by: Dictated on workstation # [id number]
== END ==
LOC: RAD FS 08:45
PROVIDERS: ATTEND Otolaryngology Otolaryngology/Facial Plastic Surgery
DX: E04.1 Nontoxic single thyroid nodule (principal); M26.642 Arthritis of left temporomandibular joint
CPT/HCPCS: 36415; 70491; 82565; 84520; Q9967

== ENCOUNTER 2021-09-15 11:07 | Emergency (ER) | payer MEDICARE ==
[~2021-09-15] VITALS: Ht 160 cm; Wt 58.9 kg
[~2021-09-15 11:07] MED LIST changes: -CATHETER FLUSH 10 ML SYR IV PRN; -HOLD METFORMIN - RECEIVED CONTRAST 20 ML VIAL IV SCH; -IOHEXOL 350 MG/ML 100 ML (OMNIPAQUE 350) VIAL IV ONE; -NS 100 ML (IVPB) BAG IV ONE
--- NOTE | 2021-09-15 11:37 | ED General ---
General Stated Complaint: RIGHT LEG SWELLING History of Present Illness Date Seen by Provider: September 15, 2021 Time Seen by Provider: 11:29 Initial Comments 76-year-old female is brought here by her daughter with complaints of bilateral lower leg swelling which is greater on the right leg than the left, for the past 4 to 5 days. Denies pain, shortness of breath, chest pain, fever, history of heart failure, trauma, injury, falls. Patient sits in wheelchair all day with her legs dangling. Allergies and Home Medications Allergies Coded Allergies: Penicillins (Verified Allergy, Intermediate, rash, 12/03/18) oseltamivir (Verified Allergy, Intermediate, Vomiting, 12/03/18) meloxicam (Verified Allergy, Unknown, 05/23/21) Patient Home Medication List Home Medication List Reviewed: Yes Acetaminophen (Tylenol Arthritis) 650 Mg Tablet.er, 650 MG PO Q6H PRN for PAIN- MILD (1-4), (Reported) Entered as Reported by: FAY ARBOLEDA on 12/28/20 0948 Apixaban (Eliquis) 5 Mg Tablet, 5 MG PO BID Prescribed by: SERGEY RIZO on 01/02/21 1218 Docusate Sodium (Docusate Sodium) 100 Mg Capsule, 100 MG PO BID, (Reported) Entered as Reported by: FAY ARBOLEDA on 12/28/20 0948 Ergocalciferol (Vitamin D2) (Vitamin D2) 1,250 Mcg Capsule, 1,250 MCG PO THUR, (Reported) Entered as Reported by: YAMEL CUMMINGS on 09/30/20 1438 Lactulose (Lactulose) 20 Gm/30 Ml Solution, 30 ML PO DAILY, (Reported) Entered as Reported by: FAY ARBOLEDA on 12/28/20 0948 Levetiracetam (Levetiracetam) 500 Mg Tablet, 500 MG PO Q12H Prescribed by: ALEJANDRO REHMAN on 05/23/21 2245 Levothyroxine Sodium (Euthyrox) 50 Mcg Tablet, 50 MCG PO DAILY, (Reported) Entered as Reported by: YAMEL CUMMINGS on 09/30/20 1438 Phenytoin Sodium Extended (Phenytoin Sodium Extended) 100 Mg Capsule, 300 MG PO 1800, (Reported) Entered as Reported by: YAMEL CUMMINGS on 09/30/20 1522 Polyethylene Glycol 3350 (Miralax) 17 Gm Powd.pack, 17 GM PO DAILY PRN for CONSTIPATION-2ND LINE, (Reported) Entered as Reported by: FAY ARBOLEDA on 12/28/20947 Quetiapine Fumarate (Seroquel) 50 Mg Tablet, 50 MG PO 1800, (Reported) Entered as Reported by: FAY ARBOLEDA on 12/28/20947 Review of Systems Review of Systems Constitutional: no symptoms reported EENTM: no symptoms reported Respiratory: no symptoms reported Cardiovascular: no symptoms reported Gastrointestinal: no symptoms reported Genitourinary: no symptoms reported Musculoskeletal: other (leg swelling) Skin: no symptoms reported Psychiatric/Neurological: No Symptoms Reported Hematologic/Lymphatic: No Symptoms Reported Immunological/Allergic: no symptoms reported Past Esswocd-Fmsysx-Efbotk Hx Seasonal Allergies Seasonal Allergies: No Past Medical History Surgery/Hospitalization HX: epilepsy,dementia,schizophrenia, sleep apnea, PE, COVID-19 Surgeries: Yes Orthopedic Respiratory: No Cardiac: Yes High Cholesterol Neurological: Yes Dementia, Seizure Disorder Genitourinary: No Gastrointestinal: No Musculoskeletal: No Endocrine: No HEENT: No Cancer: No Psychosocial: Yes Schizophrenia, Depression Integumentary: No Blood Disorders: No Physical Exam Vital Signs Vital Signs - First Documented 09/15/21 11:16 Temp 37.0 Pulse 72 Resp 20 B/P (MAP) 111/83 (92) Pulse Ox 100 O2 Delivery Room Air Capillary Refill : Height, Weight, BMI Height: 5'1.00" Weight: 160lbs. oz. 72.085273hz; 21.00 BMI Method:Stated General Appearance: No Apparent Distress, WD/WN HEENT: PERRL/EOMI Neck: Full Range of Motion Respiratory: Lungs Clear, Normal Breath Sounds Cardiovascular: Regular Rate, Rhythm, No JVD, Normal Peripheral Pulses Extremity: Pedal Edema (bilateral pitting edema , greater on the right) Neurologic/Psychiatric: Alert, Oriented x3, Other (residula right sided paralysis, in wheelchair and cannot move right lower leg at all) Skin: Normal Color Procedures/Interventions Suture Size: 5-0 Progress/Results/Core Measures Suspected Sepsis SIRS Temperature: Pulse: Respiratory Rate: Laboratory Tests 09/15/21 12:08: White Blood Count 6.0 Blood Pressure / Mean: Laboratory Tests 09/15/21 12:08: Creatinine 0.50L, INR Comment 1.0, Platelet Count 191, Total Bilirubin 0.2 Results/Orders Lab Results Laboratory Tests Test 09/15/21 12:08 Range/Units White Blood Count 6.0 4.3-11.0 10^3/uL Red Blood Count 4.40 3.80-5.11 10^6/uL Hemoglobin 13.5 11.5-16.0 g/dL Hematocrit 40 35-52 % Mean Corpuscular Volume 91 80-99 fL Mean Corpuscular Hemoglobin 31 25-34 pg Mean Corpuscular Hemoglobin Concent 34 32-36 g/dL Red Cell Distribution Width 12.8 10.0-14.5 % Platelet Count 191 130-400 10^3/uL Mean Platelet Volume 9.0 9.0-12.2 fL Immature Granulocyte % (Auto) 0 % Neutrophils (%) (Auto) 63 42-75 % Lymphocytes (%) (Auto) 27 12-44 % Monocytes (%) (Auto) 9 0-12 % Eosinophils (%) (Auto) 1 0-10 % Basophils (%) (Auto) 1 0-10 % Neutrophils # (Auto) 3.8 1.8-7.8 10^3/uL Lymphocytes # (Auto) 1.6 1.0-4.0 10^3/uL Monocytes # (Auto) 0.5 0.0-1.0 10^3/uL Eosinophils # (Auto) 0.0 0.0-0.3 10^3/uL Basophils # (Auto) 0.0 0.0-0.1 10^3/uL Immature Granulocyte # (Auto) 0.0 0.0-0.1 10^3/uL Prothrombin Time 13.3 12.2-14.7 SEC INR Comment 1.0 0.8-1.4 Activated Partial Thromboplast Time 26 24-35 SEC D-Dimer 0.16 0.00-0.49 UG/ML Sodium Level 143 135-145 MMOL/L Potassium Level 3.6 3.6-5.0 MMOL/L Chloride Level 102 98-107 MMOL/L Carbon Dioxide Level 30 21-32 MMOL/L Anion Gap 11 5-14 MMOL/L Blood Urea Nitrogen 15 7-18 MG/DL Creatinine 0.50 L 0.60-1.30 MG/DL Estimat Glomerular Filtration Rate 97 BUN/Creatinine Ratio 30 Glucose Level 108 H 70-105 MG/DL Calcium Level 9.2 8.5-10.1 MG/DL Corrected Calcium 9.0 8.5-10.1 MG/DL Total Bilirubin 0.2 0.1-1.0 MG/DL Aspartate Amino Transf (AST/SGOT) 17 5-34 U/L Alanine Aminotransferase (ALT/SGPT) 11 0-55 U/L Alkaline Phosphatase 89 40-136 U/L Pro-B-Type Natriuretic Peptide 60.5 <75.0 PG/ML Total Protein 6.8 6.4-8.2 GM/DL Albumin 4.3 3.2-4.5 GM/DL My Orders Orders - JOSE JC MD Cbc With Automated Diff (09/15/21 11:57) Comprehensive Metabolic Panel (09/15/21 11:57) Fibrin Degradation Products (09/15/21 11:57) Protime With Inr (09/15/21 11:57) Partial Thromboplastin Time (09/15/21 11:57) Probnp Fs (09/15/21 11:57) Vital Signs/I&O 09/15/21 11:16 Temp 37.0 Pulse 72 Resp 20 B/P (MAP) 111/83 (92) Pulse Ox 100 O2 Delivery Room Air Capillary Refill : Progress Note : Progress Note 1. DEPENDANT EDEMA: - Pt is always sitting in her wheelchair with legs dangling down. - Elevate legs / compression leggings - Follow up with PCP in 3 to 7 days -The patient was seen in the ED, and treated appropriately to presentation at a specific point in time. Patient is informed that there is a possibility that disease and illness can evolve and change in acuity rapidly or slowly after patient is discharged from the ER. Precautionary advice given to the patient for immediate return to ER if symptoms worsen or do not resolve, and to seek emergency care sooner rather than later. Pt also advised on the importance of PCP follow up and compliance with management and follow up plan with PCP and/or specialist, as this is part of the management plan. Pt verbally expressed und erstanding. Departure Impression Primary Impression: Dependent edema Disposition: 01 HOME, SELF-CARE Condition: Stable Departure-Patient Inst. Referrals: GAURAV OMER MD (PCP/Family) Primary Care Physician Patient Instructions: Dependent Edema (DC) Add. Discharge Instructions: - Elevate legs / compression leggings - Follow up with PCP in 3 to 7 days - Return to ER if symptoms worsen or chest pain or SOB develops JOSE JC MD September 15, 2021 11:37
[2021-09-15 12:11] LABS: BASOPHILS % (AUTO) 1 % (0-10); EOSINOPHILS % (AUTO) 1 % (0-10); HEMATOCRIT 40 % (35-52); HEMOGLOBIN 13.5 g/dL (11.5-16.0); LYMPHOCYTES # (AUTO) 1.6 10^3/uL (1.0-4.0); LYMPHOCYTES % (AUTO) 27 % (12-44); MEAN CORPUSCULAR HEMOGLOBIN 31 pg (25-34); MEAN CORPUSCULAR HGB CONC 34 g/dL (32-36); MEAN CORPUSCULAR VOLUME 91 fL (80-99); MONOCYTES # (AUTO) 0.5 10^3/uL (0.0-1.0); MONOCYTES % (AUTO) 9 % (0-12); NEUTROPHILS # (AUTO) 3.8 10^3/uL (1.8-7.8); NEUTROPHILS % (AUTO) 63 % (42-75); PLATELET COUNT 191 10^3/uL (130-400)
[2021-09-15 12:21] LABS: PROTHROMBIN TIME PATIENT 13.3 SEC (12.2-14.7)
[2021-09-15 12:33] LABS: ALBUMIN 4.3 GM/DL (3.2-4.5); BILIRUBIN,TOTAL 0.2 MG/DL (0.1-1.0); CALCIUM 9.2 MG/DL (8.5-10.1); CREATININE SERUM 0.5 MG/DL (0.60-1.30); POTASSIUM 3.6 MMOL/L (3.6-5.0); TOTAL PROTEIN 6.8 GM/DL (6.4-8.2)
[2021-09-15 12:38] LABS: FIBRIN DEGRADATION PRODUCTS 0.16 UG/ML (0.00-0.49)
[2021-09-15 13:25] VITALS: BP 115/85
== END 2021-09-15 13:25 | disposition home or self-care (01) ==
LOC: EDUNIT# 11:07 → ER FS 11:10
DX: R60.0 Localized edema (principal); G83.9 Paralytic syndrome, unspecified; Z99.3 Dependence on wheelchair; Z86.16 Personal history of COVID-19
CPT/HCPCS: 36415; 80053; 83880; 85025; 85379; 85610; 85730

== ENCOUNTER 2021-11-17 16:21 | Emergency (ER) | payer MEDICARE ==
--- NOTE | 2021-11-17 18:07 | Diagnostic Imaging Report ---
EXAMINATION: CT cervical spine without contrast. TECHNIQUE: Multiple contiguous axial images were obtained through the cervical spine without the use of intravenous contrast. Sagittal and coronal reformations through the cervical spine were then performed. All CT scans use one or more of the following dose optimizing techniques: automated exposure control, MA and/or KvP adjustment based on patient size and exam type or iterative reconstruction. HISTORY: Neck pain. COMPARISON: 05/23/2021. FINDINGS: There is mild anterolisthesis of C4 on C5 and mild retrolisthesis of C5 on C6. There is severe degenerative disease in the neck with disc osteophyte complexes at C2-C3, C3-C4, C4-C5, C5-C6 and C6-C7. There is severe bilateral C3-C4 neural foraminal stenosis. There is moderate left C4-C5 neural foraminal stenosis. There is severe left and mild right C5-C6 neural foraminal stenosis. There is severe right and mild left C6-C7 neural foraminal stenosis. There is moderate spinal canal stenosis from C2 through C5 and severe spinal canal stenosis at C6-C7. No fracture is seen. Vertebral body heights are normal. The craniocervical junction is normal. No soft tissue abnormality is seen in the neck. Limited views of the superior thorax are normal. IMPRESSION: Severe degenerative disease, as detailed above. No acute fracture. Dictated by: Dictated on workstation # [id number]
[2021-11-17] MEDS ORDERED: CYCL5TAB PO (18:34)
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
[2021-11-17 18:47] VITALS: BP 122/69
== END 2021-11-17 18:47 | disposition home or self-care (01) ==
LOC: EDUNIT# 16:21 → ER FS 16:23
DX: S13.9XXA Sprain of joints and ligaments of unspecified parts of neck, initial encounter (principal); M50.30 Other cervical disc degeneration, unspecified cervical region; Z86.16 Personal history of COVID-19; X58.XXXA Exposure to other specified factors, initial encounter
CPT/HCPCS: 72125

== ENCOUNTER → 2022-01-08 | Outpatient (CLI) | payer MEDICARE ==
[~2022-01-08] MED LIST changes: +CATHETER FLUSH 10 ML SYR IV PRN; +CYCL5TAB PO; +HOLD METFORMIN - RECEIVED CONTRAST 20 ML VIAL IV SCH; +IOHEXOL 350 MG/ML 100 ML (OMNIPAQUE 350) VIAL IV ONE; +NS 100 ML (IVPB) BAG IV ONE
[2022-01-08 08:23] LABS: CREATININE SERUM 0.68 MG/DL (0.60-1.30)
--- NOTE | 2022-01-08 09:46 | Diagnostic Imaging Report ---
CLINICAL INDICATION: Patient with left medial lower neck mass. EXAM: Axial CT scan of the neck soft tissues performed with 75 cc of Omnipaque 350 contrast. Sagittal and coronal reformatted images were created. Auto Exposure Controls were utilized during the CT exam to meet ALARA standards for radiation dose reduction. COMPARISON: CT scan of the neck soft tissues with contrast dated 07/05/2021. FINDINGS: There is a large heterogeneous enhancing mass involving the left thyroid lobe which has areas of dystrophic calcification. This mass appears to be possibly two major areas of nodularity but is measured together on this exam. This lesion is stable and measures 3.2 cm x 3.7 cm in AP by transverse dimensions. I am unable to measure the craniocaudal dimension due to it not completely being imaged on this exam; however, this lesion extends at least 1.5 cm below the level of the top of the manubrium. This lesion appears to have minimally increased in size. There is another small low-density nodule involving the right thyroid lobe. There is no cervical lymphadenopathy. The nasopharynx, oropharynx, hypopharynx, and laryngeal soft tissue structures are unremarkable. The salivary glands are unremarkable. The visualized upper lung valdez are clear. There are hypertrophic spurs and facet arthropathy involving the cervical spine. IMPRESSION: 1: There is no significant change in the size of the heterogeneous enhancing mass involving the left thyroid lobe which demonstrates 1.5 cm of substernal extension. A thyroid goiter versus mass may be considered. 2: There is no lymphadenopathy. Dictated by: Dictated on workstation # [id number]
--- NOTE | 2022-01-08 17:09 | Diagnostic Imaging Report ---
PROCEDURE: US Thyroid. TECHNIQUE: Multiple real-time grayscale images were obtained of the thyroid in various projections. INDICATION: Thyroid nodule COMPARISON: CT soft tissue neck of 01/08/2022 and thyroid ultrasound from 04/16/2021 FINDINGS: Right thyroid lobe: The right thyroid lobe measures 5.4 x 1.7 x 1.5 cm and again demonstrates mild heterogeneity. There is an anechoic cyst measuring 0.4 cm in the lower pole (TI RADS 1). Isthmus: The thyroid isthmus measures 0.4 cm and is without nodule. Left thyroid lobe: The left thyroid lobe measures 5.4 x 2.6 x 2.4 cm. The most suspicious nodule is mixed solid and cystic, isoechoic and has a few echogenic foci that are unchanged. This is wider than tall measuring 1.5 x 1.1 x 1.0 cm, and was previously biopsied (TI RADS 5). There is an additional solid isoechoic nodule measuring up to 2.1 cm, is wide and tall and has no echogenic foci (TI RADS 3) IMPRESSION: 1. No change in size of the most suspicious left thyroid nodule which has previously undergone biopsy. This nodule should be followed up based on clinical guidelines. 2. There is an additional more conspicuous solid nodule in the lower pole of the left thyroid that is now seen which was not as conspicuous on prior examination, but may have been present. Followup thyroid ultrasound could be performed based on TI RADS guidelines, below ACR TI-RADS: TR3 . TI-RADS Recommendations:TR3 - Mildly Suspicious. FNA if > 2.5 cm. Follow if > 1.5 cm at 1, 3, 5 years. Dictated by: Dictated on workstation # [id number]
== END ==
LOC: RAD 07:36
PROVIDERS: ATTEND Otolaryngology Otolaryngology/Facial Plastic Surgery
DX: R91.8 Other nonspecific abnormal finding of lung field (principal); E04.1 Nontoxic single thyroid nodule
CPT/HCPCS: 36415; 70491; 76536; 82565; 84520